=== PATIENT | female | born 1960 | race Caucasian/White ===

== ENCOUNTER 2017-07-28 08:04 | Inpatient (IN) | payer OTHER ==
[~2017-07-28] VITALS: Ht 175.3 cm; Wt 102.1 kg
[~2017-07-28 08:04] MED LIST: ASPIRIN81 M4 PO; ATORVASTATIN CA40 M1 PO; FERROUS SULFAT325 M3 PO; IBUPROFEN400 M1 PO; LEVEMIR100 UNIT/1 SC; LOMOTIL 2.5-0.1 EACH PO; METFORMIN HCL1000 M1 PO; NOVOLOG FL100 UNIT/1 SC; PREDNISONE20 M1 PO; TOUJEO SOL300 UNIT/1 SC; TRESIBA FL200 UNIT/1 SC; TRIAMCINOLONE A15 G1 TOP; TYLENOL EXTRA500 M2 PO; TYLENOL325 M1 PO; VANCO 1.51.5 GM/250 IV; ZOFRAN ODT4 M1 SL
--- NOTE | 2017-07-28 08:18 | ED GENERAL ADULT ---
See Addendum History of Present Illness General Chief Complaint: Abdominal Pain/Flank Pain Stated Complaint: BIBA FOR ABD PAIN Source: patient, old records, EMS Exam Limitations: no limitations Vital Signs & Intake/Output Vital Signs & Intake/Output Vital Signs Date Time Temp Pulse Resp B/P B/P Pulse O2 O2 Flow FiO2 Mean Ox Delivery Rate 07/28 1350 96 22 68/00 100 Nasal 2.0L Cannula 07/28 1225 77 18 62/00 97 Room Air 07/28 1207 97.8 87 20 66/40 96 Room Air 07/28 0823 96 Room Air 07/28 0821 97.3 113 17 166/67 96 Room Air Allergies Coded Allergies: vancomycin (Severe, RASH 05/01/17) Reconcile Medications Atorvastatin Calcium 40 MG TABLET 1 TAB PO DAILY HIGH CHOLESTROL (Reported) Insulin Aspart, Recombinant (Novolog Flexpen) 100 UNIT/ML INSULN.PEN 0 SC SEE ADMIN CRITERIA DIABETES Take total maximum 70 units in a day based on your sugars BEFORE MEALS Blood Insulin Sugar Units <80 0 81-150 8 101-200 10 201-250 12 251-300 14 301-350 16 351-400 18 >400 18 Call Doctor AT BEDTIME Blood Insulin Sugar Units <80 0 81-100 0 101-200 0 201-250 0 251-300 2 301-350 3 351-400 4 >400 4 Call Doctor Insulin Glargine,Hum.rec.anlog (Toujeo Solostar) 300 UNIT/ML (1.5 ML) INSULN.PEN 8 U SC QAM diabetes . Omeprazole Magnesium (Prilosec Otc) 20 MG TABLET.DR 1 TAB PO DAILY GERD ( Reported) Prednisone 20 MG TABLET 60 MG PO DAILY kidney Triage Note: 57 Y/O FEMALE BIBA FROM FOR RT SIDED ABD PAIN ONSET LAST NIGHT WITH SOME NAUSEA BUT NO VOMITING. PT STS SHE ALSO HAS RT FOOT PAIN S/P SURGERY AND INJURY TO THE FOOT. FOOT NOTED TO BE SWOLLEN AND REDDENED. PT STS SHE IS ALSO VERY DIZZY. PT ARRIVES A/O X3 VERY GOOD HISTORIAN AND NOTED TO BE VERY LETHARGIC. PT ALSO NOTED TO BE HYPOTENSIVE BY PARAMED. CHICO MAGANA AT BEDSIDE TO MARTA PT Triage Nurses Notes Reviewed? yes Onset: Abrupt Duration: day(s): (2), constant Timing: recent history Injury Environment: home Severity: severe No Modifying Factors: none HPI: 57-year-old female with a history of osteomyelitis and right foot and diabetes and comes into the emergency room with complaints of right foot swelling and pain. Patient reports that she started with symptoms yesterday. She's had associated chills and body aches. She's felt dizzy and had difficulty walking on the right leg. She started with some right-sided abdominal pain today. Denies any fever vomiting or diarrhea. Denies any chest pain or shortness of breath. Denies any cough. EMS reports that she was hypotensive in the field and tachycardic. Her blood pressure was 80 systolic. She had an IV placed and a liter IV bolus prehospital. She saw Dr. Guillen in the past. (Lars [place]) Past History Travel History Traveled to [place] past 21 day No Medical History Any Pertinent Medical History? 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 . Hx Contributory? No (Lars Washington) Review of Systems Review of Systems Constitutional: Reports: see HPI. EENTM: Reports: see HPI. Respiratory: Reports: no symptoms. Cardiovascular: Reports: no symptoms. GI: Reports: see HPI. Genitourinary: Reports: no symptoms. Musculoskeletal: Reports: no symptoms. Skin: Reports: no symptoms. Neurological/Psychological: Reports: see HPI. Hematologic/Endocrine: Reports: no symptoms. Immunologic/Allergic: Reports: no symptoms. All Other Systems: Reviewed and Negative (Lars Washington) Physical Exam Physical Exam General Appearance: well developed/nourished, no apparent distress, alert Head: atraumatic, normal appearance Eyes: Bilateral: normal appearance. Ears, Nose, Throat: normal ENT inspection, hearing grossly normal Neck: normal inspection Respiratory: no respiratory distress Cardiovascular: regular rate/rhythm Gastrointestinal: soft, tenderness (rlq) Back: normal inspection Extremities: normal inspection, no edema Neurologic/Psych: awake, alert, oriented x 3 Skin: intact, normal color Core Measures ACS in differential dx? No CVA/TIA Diagnosis: No Sepsis Present: Yes Sepsis Focused Exam Completed? No (Lars [place]) Progress Differential Diagnoses I considered the following diagnoses in my evaluation of the patient: Osteomyelitis, sepsis, septic shock, appendicitis, cellulitis, DVT, Plan of Care: Orders Procedure Date/time Status Heart Healthy Diet 07/28 L Complete Nothing by Mouth 07/28 D Active XRY-PORTABLE CHEST XRAY 07/28 1347 Active EXTREMETIES CULTURE 07/28 1255 Active Pathway - chart 07/28 1158 Active House Staff 07/28 1158 Active Code Status 07/28 1158 Active LACTIC ACID 07/28 1117 Complete Patient Data 07/28 1047 Active Admit to inpatient 07/28 1036 Active Vital Signs 07/28 1036 Active Code Status 07/28 1036 Complete Intake & Output 07/28 0820 Active BLOOD CULTURE 07/28 0817 Active URINALYSIS 07/28 0817 Active TROPONIN LEVEL 07/28 0817 Complete LIPASE 07/28 0817 Complete LACTIC ACID 07/28 0817 Complete COMPREHENSIVE METABOLIC PANEL 07/28 0817 Complete CBC WITHOUT DIFFERENTIAL 07/28 0817 Complete EKG 07/28 0817 Active VTE Mechanical Prophylaxis 07/28 UNK Active Current Medications Sig/Chuck Start time Last Medication Dose Stop Time Status Admin Heparin Sodium 5,000 UNIT Q8 07/28 1400 AC (Porcine) Hydrocortisone 100 MG Q8 07/28 1400 AC 07/28 Sodium Succinate 1241 (Solucortef) Norepinephrine 4 MG Q24H 07/28 1400 AC (Levophed Drip) Sodium Chloride 250 ML (Normal Saline 0.9%) Ceftazidime 1,000 MG Q12 07/28 1256 UNVr 07/28 (Fortaz) 1319 Laboratory Tests 07/28/17 1135: Lactic Acid 2.2 H 07/28/17 0818: Anion Gap 12, Estimated GFR 20 L, BUN/Creatinine Ratio 26.4 H, Glucose 88, Lactic Acid 2.3 H, Calcium 9.4, Total Bilirubin 0.7, AST 15, ALT 26, Alkaline Phosphatase 60, Troponin I 0.05, Total Protein 5.3 L, Albumin 2.8 L, Globulin 2.5, Albumin/Globulin Ratio 1.1, Lipase 237, CBC w Diff MAN DIFF ORDERED, RBC 3.27 L, MCV 79.7 L, MCH 26.8 L, MCHC 33.6, RDW 16.1 H, MPV 6.7 L, Gran % 90.9 H, Lymphocytes % 7.7 L, Monocytes % 0.9 L, Eosinophils % 0.3, Basophils % 0.2, Absolute Granulocytes 13.6 H, Segmented Neutrophils 72, Band Neutrophils 16 H, Absolute Lymphocytes 1.2, Lymphocytes 4 L, Monocytes 7, Absolute Monocytes 0.1, Eosinophils 1, Absolute Eosinophils 0, Absolute Basophils 0, Platelet Estimate VERIFIED BY SMEAR, Normochromic RBCs VERIFIED, Anisocytosis 1+ , Microcytic Cells 1+ Microbiology 07/28 1255 EXTREMITIE: Culture & Sensitivity - COLB 07/28 1255 EXTREMITIE: Gram Stain - COLB 07/28 1043 BLOOD: Blood Culture - RECD 07/28 1020 BLOOD: Blood Culture - RECD Diagnostic Imaging: Viewed by Me: Radiology Read, MRI. Discussed w/RAD: Radiology Read, MRI. Radiology Impression: PATIENT: BARBY WILKS PRESENT AGE: 57 PATIENT ACCOUNT NO: [id number] : 56 LOCATION: [facility] ORDERING PHYSICIAN: Lars GOLDEN SERVICE DATE: 07/28/17 EXAM TYPE: RAD - XRY-FOOT COMPLETE, R EXAMINATION: XR FOOT, RIGHT CLINICAL INFORMATION: Right foot swelling. Evaluate for osteomyelitis. COMPARISON: 04/10/2017 and 04/24/2017 TECHNIQUE: Right foot, 3 views FINDINGS: Small osteophytes of mildly degenerated ankle joint. Subtalar joint space is well-preserved. There are enthesophytes of the calcaneus and base of fifth metatarsal. Soft tissue swelling, malalignment, erosive changes, sclerosis and ossific debris around the midfoot/tarsometatarsal joints. The medial subluxation of the navicular at the talonavicular joint is unchanged compared to 04/24/2017. Similar appearance of erosions and subarticular sclerosis at the navicular-cuneiform joints, and there is similar fragmentation of middle and lateral cuneiforms. Again noted is mild medial subluxation of the first metatarsal, joint space narrowing, sclerosis and erosions of the first tarsometatarsal joint. There is worsening lateral displacement of the second metatarsal with respect to the deformed, eroded middle cuneiform. The degree of fragmentation of the lateral cuneiform remains similar compared to 04/24/2017. Interval worsening of erosions and subarticular sclerosis at the fourth and fifth tarsometatarsal joints. Chronic, mild periostitis along proximal shafts of 2nd 5th metatarsals. The erosion of the lateral 5th metatarsal head is unchanged. No new findings at MTP joints or IP joints compared to 04/24/2017. IMPRESSION: Findings suggestive of chronic osteomyelitis of the navicular-cuneiform joints and tarsometatarsal joints. There is malalignment, erosive change and fragmentation of the tarsometatarsal joints with worsening lateral displacement of the second metatarsal with respect to the eroded, severely deformed middle cuneiform. The erosive changes at fourth and fifth tarsometatarsal joints have worsened compared to 04/24/2017. There is likely a component of neuropathic arthropathy in addition to infectious/ inflammatory arthritis. The erosion of the fifth metatarsal head, presumably caused by infection, is unchanged. DICTATED BY: Danny Sarmiento MD DATE/TIME DICTATED:07/28/17847 PAPER MACHINE OPERATOR:TESSIE DATE/TIME TRANSCRIBED:847 CONFIDENTIAL, DO NOT COPY WITHOUT APPROPRIATE AUTHORIZATION. < Electronically signed in Other Vendor System> SIGNED BY: Danny Sarmiento MD 07/28/17 0907 Initial ED EKG: normal sinus rhythm, rate (107), nonspecific ST T wave chg (Lars [place]) Departure Departure Disposition: STILL A PATIENT Condition: Stable Clinical Impression Primary Impression: Osteomyelitis of foot Secondary Impressions: Cellulitis, Lactic acidosis Referrals: Oswald Mcleod MD (PCP/Family) Departure Forms: Customer Survey General Discharge Information Admission Note Spoke With: Betsy Arriaga MD Documentation of Exam: Documentation of any treatments & extenuating circumstances including Concerns Regarding Discharge (functional status, medication knowledge or non-compliance, living conditions, etc.) that warrant an admission rather than observation: Patient will require IV fluids. IV antibiotics. Podiatry consultation. Surgery. MRI of foot. Infectious disease consultation. Spoke with hospitalist. At this point time patient will be started on clindamycin. High risk. Patient will require multiple days here in the hospital. (Lars [place]) PA/ROLLER STAINER Co-Sign Statement Statement: ED Attending supervision documentation- [X] I saw and evaluated the patient. I have also reviewed all the pertinent lab results and diagnostic results. I agree with the findings and the plan of care as documented in the PA's/ROLLER STAINER's documentation. [] I have reviewed the ED Record and agree with the PA's/ROLLER STAINER's documentation. [] Additions or exceptions (if any) to the PAs/ROLLER STAINER's note and plan are summarized below: [] I've seen and personally examined the patient and I agree with the PAs evaluation. The right foot is severely swollen and tender. 07/28/17 2 PM The patient's blood pressure dropped. She is receive 6 L of IV fluid. I reevaluated the patient. She is pale and cool. Left femoral line is being placed. Levothroid is being started. I spoke with Dr. Chatman who will evaluate the patient. She is being admitted to the ICU. She is received IV antibiotics and blood cultures have been sent. (Jose Luis Blake DO) Critical Care Note Critical Care Note Critical Care Time: 30-74 min (35) (Lars Washington) ED Attending Observation Initial Observation Note: I have seen and personally examined BARBY WILKS on 07/28/17 at 1204. I agree with the current emergency department documentation. The disposition (admission or discharge) is uncertain at this time, she needs a period of observation for the following reason(s): The ED Nurse caring for this patient has been personally informed as to what the patient is being observed for. (Lars Washington)
[2017-07-28 08:26] LABS: ABSOLUTE BASOPHIL COUNT 0 /CUMM (0.0-0.2); ABSOLUTE EOSINOPHIL COUNT 0 /CUMM (0.0-0.7); ABSOLUTE GRANULOCYTE CT 13.6 /CUMM (1.4-6.5); ABSOLUTE LYMPH COUNT 1.2 /CUMM (1.2-3.4); ABSOLUTE MONOCYTE COUNT 0.1 /CUMM (0.10-0.60); BASOPHIL % 0.2 % (0.0-2.0); EOSINOPHIL % 0.3 % (0-5); GRANULOCYTE % 90.9 % (42.2-75.2); HEMATOCRIT 26.1 % (37-47); MEAN CORPUSCULAR HGB 26.8 PG (27.0-31.0); MEAN CORPUSCULAR HGB CONC 33.6 G/DL (33.0-37.0); MEAN CORPUSCULAR VOLUME 79.7 FL (81.0-99.0); MEAN PLATELET VOLUME 6.7 FL (7.4-10.4); PLATELET COUNT 276 /CUMM (130-400); RBC DISTRIBUTION WIDTH 16.1 % (11.5-14.5); RED BLOOD CELL CT 3.27 /CUMM (4.20-5.40); WHITE BLOOD CELL COUNT 14.9 /CUMM (4.8-10.8)
--- NOTE | 2017-07-28 09:07 | RADIOLOGY REPORT ---
EXAMINATION: XR FOOT, RIGHT CLINICAL INFORMATION: Right foot swelling. Evaluate for osteomyelitis. COMPARISON: 04/10/2017 and 04/24/2017 TECHNIQUE: Right foot, 3 views FINDINGS: Small osteophytes of mildly degenerated ankle joint. Subtalar joint space is well-preserved. There are enthesophytes of the calcaneus and base of fifth metatarsal. Soft tissue swelling, malalignment, erosive changes, sclerosis and ossific debris around the midfoot/tarsometatarsal joints. The medial subluxation of the navicular at the talonavicular joint is unchanged compared to 04/24/2017. Similar appearance of erosions and subarticular sclerosis at the navicular-cuneiform joints, and there is similar fragmentation of middle and lateral cuneiforms. Again noted is mild medial subluxation of the first metatarsal, joint space narrowing, sclerosis and erosions of the first tarsometatarsal joint. There is worsening lateral displacement of the second metatarsal with respect to the deformed, eroded middle cuneiform. The degree of fragmentation of the lateral cuneiform remains similar compared to 04/24/2017. Interval worsening of erosions and subarticular sclerosis at the fourth and fifth tarsometatarsal joints. Chronic, mild periostitis along proximal shafts of 2nd 5th metatarsals. The erosion of the lateral 5th metatarsal head is unchanged. No new findings at MTP joints or IP joints compared to 04/24/2017. IMPRESSION: Findings suggestive of chronic osteomyelitis of the navicular-cuneiform joints and tarsometatarsal joints. There is malalignment, erosive change and fragmentation of the tarsometatarsal joints with worsening lateral displacement of the second metatarsal with respect to the eroded, severely deformed middle cuneiform. The erosive changes at fourth and fifth tarsometatarsal joints have worsened compared to 04/24/2017. There is likely a component of neuropathic arthropathy in addition to infectious/inflammatory arthritis. The erosion of the fifth metatarsal head, presumably caused by infection, is unchanged.
[2017-07-28] MEDS ORDERED: PRILOSEC OTC20 M1 PO (09:52)
--- NOTE | 2017-07-28 10:28 | ULTRASOUND REPORT ---
EXAMINATION: US TRIPLEX LOWER EXTREMITY, RIGHT CLINICAL INFORMATION: Right foot swelling and erythema COMPARISON: None TECHNIQUE: Color-flow triplex imaging with spectral analysis and compression Doppler were performed on the lower extremity. FINDINGS: Respiratory variation, normal compression and augmented flow are noted throughout the lower extremity. The visualized common femoral vein, superficial femoral vein, profunda femoral vein, popliteal vein and midcalf peroneal and posterior tibial venous segments show no evidence of deep venous thrombosis. There is no Wolf's cyst. IMPRESSION: Normal triplex scan without evidence of deep venous thrombosis involving the lower extremity.
--- NOTE | 2017-07-28 11:56 | History & Physical ---
Pamela RASMUSSEN,[facility] 07/28/17 1155: General Information and HPI MD Statement: I have seen and personally examined BARBY WILKS and documented this H&P. The patient is a 57 year old F who presented with a patient stated chief complaint of []. 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 The patient reported subjective fever and chills. While in the ED her blood pressure dropped from 160s/60s down to 60s/40s, for which central line was placed, stress dose of hydrocortisone was given(on prednisone for the past 3 months), total of 6 IV normal saline boluses was given , and vasopressor was started. The patient was given IV clindamycin and ceftazidime and her right foot abscess was drained at bedside, which revealed purulent bloody fluid The patient was sleepy and lethargic, complaining of pain, for that reason he was difficult to obtain accurate history. Allergies/Medications Home Med list Atorvastatin Calcium 40 MG TABLET 1 TAB PO DAILY HIGH CHOLESTROL (Reported) Insulin Aspart, Recombinant (Novolog Flexpen) 100 UNIT/ML INSULN.PEN 0 SC SEE ADMIN CRITERIA DIABETES Take total maximum 70 units in a day based on your sugars BEFORE MEALS Blood Insulin Sugar Units <80 0 81-150 8 101-200 10 201-250 12 251-300 14 301-350 16 351-400 18 >400 18 Call Doctor AT BEDTIME Blood Insulin Sugar Units <80 0 81-100 0 101-200 0 201-250 0 251-300 2 301-350 3 351-400 4 >400 4 Call Doctor Insulin Glargine,Hum.rec.anlog (Toujeo Solostar) 300 UNIT/ML (1.5 ML) INSULN.PEN 8 U SC QAM diabetes . 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 . Psychosocial History Who Do You Live With? spouse Services at Home: Nursing Primary Language: Danish ETOH Use: denies use Illicit Drug Use: denies illicit drug use Living Will? no Power of [employer] Director/HCP? no Name of POA/HCP: Functional Ability ADLs Independent: dressing, eating, toileting, bathing. Ambulation: independent IADLs Independent: shopping, housework, finances, food prep, telephone, transportation , medication admin. Review of Systems Review of Systems Constitutional: Reports: see HPI. Exam & Diagnostic Data Last 24 Hrs of Vital Signs/I&O Vital Signs Date Time Temp Pulse Resp B/P B/P Pulse O2 O2 Flow FiO2 Mean Ox Delivery Rate 07/29 0000 99 Nasal 4.0L Cannula 07/29 0000 98.2 102 18 92/60 99 Nasal 4.0L Cannula 07/28 2207 100 92/57 07/28 2000 97 Nasal 4.0L Cannula 07/28 1645 90 Nasal 4.0L Cannula 07/28 1645 97.1 101 18 116/64 90 Nasal 4.0L Cannula 07/28 1607 100 17 118/66 100 Nasal 4.0L Cannula 07/28 1550 100 120/62 16 1543 101 126/62 07/28 1435 96 16 78/56 100 Nasal 2.0L Cannula 07/28 1420 94 16 90/54 100 Nasal 2.0L Cannula 07/28 1409 99 20 92/56 100 Room Air 07/28 1405 98 20 67/00 100 Nasal 2.0L Cannula 07/28 1400 95 68/00 16 1350 96 22 68/00 100 Nasal 2.0L Cannula 07/28 1315 98.0 86 22 68/00 99 Nasal 2.0L Cannula 07/28 1225 77 18 62/00 97 Room Air 07/28 1207 97.8 87 20 66/40 96 Room Air 07/28 0823 96 Room Air 07/28 0821 97.3 113 17 166/67 96 Room Air Intake & Output 07/29 0800 07/29 0000 07/28 1600 Intake Total 2532 4500 Output Total 500 Balance 2031 4500 Intake, IV 253 4500 Intake, Oral 0 Number 0 Bowel Movements Output, Urine 500 Patient 102.058 kg Weight Physical Exam General Appearance Alert, Oriented X3, Moderate Distress HEENT Atraumatic, PERRLA, EOMI, Mucous Membr. moist/pink Neck No JVD Cardiovascular Regular Rate, Normal S1, Normal S2, No Murmurs Lungs Clear to Auscultation, Normal Air Movement Abdomen Soft, RUQ and EPI tenderness Neurological Normal Speech, sleepy and lethargic Extremities right foot swellingm erythema, and warm wtih tenderness Last 24 Hrs of Labs/Dario: Laboratory Tests 07/28/17 2100: Lactic Acid Cancelled 07/28/17 1755: Lactic Acid 2.0, PT 13.7 H, INR 1.25 H, APTT 25, CBC w Diff NO MAN DIFF REQ, RBC 3.21 L, MCV 80.9 L, MCH 27.6, MCHC 34.1, RDW 16.9 H, MPV 7.1 L, Gran % 94.1 H, Lymphocytes % 2.7 L, Monocytes % 3.0, Eosinophils % 0.2, Basophils % 0 , Absolute Granulocytes 20.2 H, Absolute Lymphocytes 0.6 L, Absolute Monocytes 0.6, Absolute Eosinophils 0, Absolute Basophils 0 07/28/17 1633: Urine Color YEL, Urine Clarity CLEAR, Urine pH 5.0, Ur Specific Juliette 1.025, Urine Protein 100 H, Urine Ketones NEG, Urine Nitrite NEG, Urine Bilirubin NEG, Urine Urobilinogen 0.2, Ur Leukocyte Esterase NEG, Ur Microscopic SEDIMENT EXAMINED, Urine RBC RARE, Urine WBC 1-3 H, Urine Bacteria MOD H, Hyaline Casts RARE H, Urine Hemoglobin NEG, Urine Glucose NEG 07/28/17 1523: Lactic Acid Cancelled 07/28/17 1135: Lactic Acid 2.2 H 07/28/17 0818: Anion Gap 12, Estimated GFR 20 L, BUN/Creatinine Ratio 26.4 H, Glucose 88, Lactic Acid 2.3 H, Calcium 9.4, Phosphorus 3.7, Magnesium 1.1 L, Total Bilirubin 0.7, AST 15, ALT 26, Alkaline Phosphatase 60, Troponin I 0.05, Total Protein 5.3 L, Albumin 2.8 L, Globulin 2.5, Albumin/Globulin Ratio 1.1, Lipase 237, Cortisol AM Sample 15.7, CBC w Diff MAN DIFF ORDERED, RBC 3.27 L, MCV 79.7 L, MCH 26.8 L, MCHC 33.6, RDW 16.1 H, MPV 6.7 L, Gran % 90.9 H, Lymphocytes % 7.7 L, Monocytes % 0.9 L, Eosinophils % 0.3, Basophils % 0.2, Absolute Granulocytes 13.6 H, Segmented Neutrophils 72, Band Neutrophils 16 H, Absolute Lymphocytes 1.2, Lymphocytes 4 L, Monocytes 7, Absolute Monocytes 0.1, Eosinophils 1, Absolute Eosinophils 0, Absolute Basophils 0, Platelet Estimate VERIFIED BY SMEAR, Normochromic RBCs VERIFIED, Anisocytosis 1+, Microcytic Cells 1+ Microbiology 07/28 1745 GI: Surveillance Culture - RECD 07/28 1740 UPPER RESP: Surveillance Culture - RECD 07/28 1633 URINE ROUT: Urine Culture - RECD 07/28 1240 EXTREMITIE: Culture & Sensitivity - RECD 07/28 1240 EXTREMITIE: Gram Stain - RECD 07/28 1043 BLOOD: Blood Culture - RECD 07/28 1020 BLOOD: Blood Culture - RECD Assessment/Plan Assessment: 57-year-old female with history of uncontrolled diabetes mellitus, hyperlipidemia, sent right with MRSA and group B strep osteomyelitis that was treated with IV vancomycin that lead to interstitial nephritis. For the past 3 months the patient has been getting 60 mg prednisone for interstitial nephritis. She presented with right upper quadrant abdominal pain and right foot cellulitis with a questionable osteomyelitis. While in the ED she became septic. Her right foot abscess was drained and the culture was sent. CT abdomen did not reveal any abnormality. The patient received a total of 6 IV normal saline boluses, stress dose of hydrocortisone, and was started on IV Levophed. Her presentation can be secondary to right foot cellulitis/ osteomyelitis, also it's possible that she has active intra-abdominal infection. Plan * We will transferred to ICU * Panculture * Continue clindamycin and ceftazidime * Continue IV hydrocortisone 100 mg every 8 * IV insulin, fingerstick * We will consult podiatry, wound, IV, endocrinology * We will consider right upper quadrant ultrasound * Diabetic diet when tolerated * Full code * DVT prophylaxis pharmacological. As Ranked By This Provider Problem List: 1. Cellulitis Core Measures/Misc (01/29) Acute Coronary Syndrome ACS Diagnosis: No Congestive Heart Failure Congestive Heart Failure Diagnosis No Cerebrovascular Accident CVA/TIA Diagnosis: No VTE (View Protocol) VTE Risk Factors Age>40 No Mechanical VTE Prophylaxis d/t Medical Contraindication No VTE Pharm Prophylaxis d/t NA PharmProphylax ordered Sepsis (View protocol) Sepsis Present: Yes Robyn Lopez MD 07/28/17 1434: General Information and HPI Allergies/Medications Allergies: Coded Allergies: vancomycin (Severe, RASH/INTERSTITIAL NEPHRITIS 07/29/17) Attending MD Review Statement Attending Statement Attending MD Statement: examined this patient, discuss w/resident/PA/COMPUTER HARDWARE DEVELOPER, agreed w/resident/PA/COMPUTER HARDWARE DEVELOPER, discussed with family, reviewed EMR data (avail), discussed with nursing, discussed with case mgmt, reviewed images, amended to note Attending Assessment/Plan: 57 y/o F with pmh sig for hyperlipidemia, diabetes mellitus, right foot MRSA/ group B strept, developing acute renal failure/acute interstitial nephritis with vancomycin currently on high-dose prednisone presented to the emergency room with right foot pain as well as right upper quadrant pain. Patient claims that she has off-and-on right foot pain for months. Right upper quadrant pain started last night. She was nauseous and was dry heaving. Her foot has been swollen but swelling has increased recently. It is very tender to touch. It is also purplish bluish looking. There is some scabbing going on on her sole. Franklin reports fevers at home but afebrile in the emergency room. She has a significant leukocytosis. She did receive some morphine in the ER and she had a drop in her blood pressure. Her pressure dropped to 60s. She did receive stress dose IV steroids as well as IV fluid boluses. Off note patient has been having uncontrolled blood sugars at home with hyperglycemia secondary to prednisone. She is insulin-dependent. In the emergency room, she did receive clindamycin. After she dropped her blood pressure ceftaz was also given. Later on after it was discussed with podiatry, patient received incision and drainage of the right foot. Pustular material came out which has been sent for culture and sensitivities. Vital Signs Date Time Temp Pulse Resp B/P B/P Pulse O2 O2 Flow FiO2 Mean Ox Delivery Rate 07/28 1409 99 20 92/56 100 Room Air 07/28 1405 98 20 67/00 100 Nasal 2.0L Cannula 07/28 1400 95 68/00 07/28 1350 96 22 68/00 100 Nasal 2.0L Cannula 07/28 1315 98.0 86 22 68/00 99 Nasal 2.0L Cannula 07/28 1225 77 18 62/00 97 Room Air 07/28 1207 97.8 87 20 66/40 96 Room Air 07/28 0823 96 Room Air 07/28 0821 97.3 113 17 166/67 96 Room Air on exam; aox3, mod distress 2/2 to foot and ruq pain. cv; s1,s2, rrr resp; clear abd; soft, tenfder in ruq, bs+ ext; no edema right foot is all swollen, bluish purplish-looking, very tender to touch. Laboratory Tests 07/28 07/28 1135 0818 Chemistry Sodium (137 - 145 mmol/L) 134 L Potassium (3.5 - 5.1 mmol/L) 3.6 Chloride (98 - 107 mmol/L) 101 Carbon Dioxide (22 - 30 mmol/L) 21 L Anion Gap (5 - 16) 12 BUN (7 - 17 mg/dL) 66 H Creatinine (0.5 - 1.0 mg/dL) 2.5 H Estimated GFR (>60 ml/min) 20 L BUN/Creatinine Ratio (7 - 25 %) 26.4 H Glucose (65 - 99 mg/dL) 88 Lactic Acid (0.7 - 2.1 mmol/L) 2.2 H 2.3 H Calcium (8.4 - 10.2 mg/dL) 9.4 Total Bilirubin (0.2 - 1.3 mg/dL) 0.7 AST (14 - 36 U/L) 15 ALT (9 - 52 U/L) 26 Alkaline Phosphatase (<127 U/L) 60 Troponin I (< 0.11 ng/ml) 0.05 Total Protein (6.3 - 8.2 g/dL) 5.3 L Albumin (3.5 - 5.0 g/dL) 2.8 L Globulin (1.9 - 4.2 gm/dL) 2.5 Albumin/Globulin Ratio (1.1 - 2.2 %) 1.1 Lipase (23 - 300 U/L) 237 Hematology CBC w Diff MAN DIFF ORDERED WBC (4.8 - 10.8 /CUMM) 14.9 H RBC (4.20 - 5.40 /CUMM) 3.27 L Hgb (12.0 - 16.0 G/DL) 8.8 L Hct (37 - 47 %) 26.1 L MCV (81.0 - 99.0 FL) 79.7 L MCH (27.0 - 31.0 PG) 26.8 L MCHC (33.0 - 37.0 G/DL) 33.6 RDW (11.5 - 14.5 %) 16.1 H Plt Count (130 - 400 /CUMM) 276 MPV (7.4 - 10.4 FL) 6.7 L Gran % (42.2 - 75.2 %) 90.9 H Lymphocytes % (20.5 - 51.1 %) 7.7 L Monocytes % (1.7 - 9.3 %) 0.9 L Eosinophils % (0 - 5 %) 0.3 Basophils % (0.0 - 2.0 %) 0.2 Absolute Granulocytes (1.4 - 6.5 /CUMM) 13.6 H Segmented Neutrophils (42.2 - 75.2 %) 72 Band Neutrophils (0.0 - 5.0 %) 16 H Absolute Lymphocytes (1.2 - 3.4 /CUMM) 1.2 Lymphocytes (20.5 - 51.1 %) 4 L Monocytes (1.7 - 9.3 %) 7 Absolute Monocytes (0.10 - 0.60 /CUMM) 0.1 Eosinophils (0 - 5.0 %) 1 Absolute Eosinophils (0.0 - 0.7 /CUMM) 0 Absolute Basophils (0.0 - 0.2 /CUMM) 0 Platelet Estimate (ADEQUATE) VERIFIED BY SMEAR Normochromic RBCs VERIFIED Anisocytosis 1+ Microcytic Cells 1+ All imaging reviewed. A/P: 57 y/o F with pmh sig for hyperlipidemia, diabetes mellitus, right foot MRSA/ group B strept, developing acute renal failure/acute interstitial nephritis with vancomycin currently on high-dose prednisone admitted with septic shock, hypotension, right foot infection. Abdominal/pelvic CT shows no acute findings. Patient received incision and drainage of the right foot and pustular material came out which has been sent for sensitivities and culture. Patient to receive TLC in the emergency room. I have notified Dr. Chatman. Patient will be admitted to ICU. She will require stress dose steroids, IV fluids and vasopressors. Appreciate nephrology input. Please call endocrinology consult for the management off hyperglycemia. Patient will require broad spectrum antibiotics, received clinda and Ceftaz in ER. Podiatry consult should be called. Infectious disease consult has been obtained. She will require MRI of the right foot once hemodynamically stable. DVT px; hep sq Full code.
--- NOTE | 2017-07-28 12:15 | CT SCAN REPORT ---
EXAMINATION: CT ABDOMEN AND PELVIS WITHOUT CONTRAST CLINICAL INFORMATION: Epigastric and left upper quadrant pain. COMPARISON: April 2017. TECHNIQUE: Contiguous axial thin section helical images of the abdomen and pelvis were performed without oral or IV contrast. The data set was reformatted in the coronal and sagittal planes and reviewed on an independent workstation. DLP: 1259 mGy-cm. FINDINGS: There is mild groundglass opacification within the inferior segment of the lingula. The visualized lung bases are otherwise clear. The visualized portions of the heart are unremarkable. The liver is of normal size and attenuation without focal lesions nor intrahepatic biliary ductal dilation. There is a 4 mm calcification along the wall of the gallbladder. There is no wall thickening or discernible pericholecystic fluid. The spleen, pancreas, adrenal glands are unremarkable. Both kidneys are of normal size and attenuation without hydronephrosis or nephrolithiasis. There is bilateral perinephric stranding. There is no abdominal free fluid. There is neither mesenteric nor retroperitoneal lymphadenopathy. There are scattered sigmoid diverticula without evidence of diverticulitis; otherwise, unremarkable unopacified loops of small and large bowel are identified. A normal appendix is identified. There is no pelvic free fluid. The urinary bladder is unremarkable. There is neither pelvic nor inguinal lymphadenopathy. A right inguinal lymph node has decreased in size from prior exam measuring approximately 11 mm in short axis. Bone windows: Neither sclerotic nor lytic bone lesions are identified. IMPRESSION: No evidence for acute abdominal or pelvic inflammatory or infectious processes. Bilateral perinephric stranding without hydronephrosis nor nephrolithiasis. Mild diverticulosis without evidence of diverticulitis.
--- NOTE | 2017-07-28 13:20 | Cons- Nephrology ---
General Information and HPI Consulting Request Date of Consult: 07/28/17 Requested By: Robyn Lopez MD Reason for Consult: ALBA, CKD Source of Information: patient, old records Exam Limitations: clinical condition History of Present Illness: The patient is a 57-year-old woman with a past medical history most significant for acute interstitial nephritis for which she is on steroids and her faby creatinine most recently was 2.17, diabetes, peripheral vascular disease who presents with foot and abd pain. The patient has been seen by nephrology since late 2016. She had had a creatinine of 0.5 but had multiple bouts of AK I. She ultimately underwent a kidney biopsy 05/01 which was consistent with acute interstitial nephritis, ATN, as well as diabetic nephropathy, and mild arteriolar nephrosclerosis. She was treated with steroids and her creatinine came down to about 2.5 but is been stagnant at that level. I saw her in the office was recently on 07/06 and at that time we decided to continue with steroids for another month. I was set to see her next week and she had labs done on 07/26 which showed that her creatinine finally started to come down a bit more to 2.17. She is now coming in with right foot pain, abd pain, chills. She's had some dizziness. She was noted by EMS to be hypotensive. On presentation, initial blood pressure 166/67afebrile. However, her blood pressure subsequently dropped to the 60s systolic and she has gotten a total of 3 L thus far IV fluid. She is in the reverse Trendelenburg position and is drowsy. Labs notable for a blood cell count 14.9, hemoglobin 8.8, creatinine 2.5, glucose 88 lactate 2.3, troponin 0.05. CT A/P imaging in the setting of abd pain neg for acute process although did note b/l perinephric stranding. She has been started on empiric and biotics and podiatry has been notified regarding the foot abscess that she clinically has. Should note that she did not take her steroids today. Allergies/Medications Allergies: Coded Allergies: vancomycin (Severe, RASH 05/01/17) Home Med List: Atorvastatin Calcium 40 MG TABLET 1 TAB PO DAILY HIGH CHOLESTROL (Reported) Insulin Aspart, Recombinant (Novolog Flexpen) 100 UNIT/ML INSULN.PEN 0 SC SEE ADMIN CRITERIA DIABETES Take total maximum 70 units in a day based on your sugars BEFORE MEALS Blood Insulin Sugar Units <80 0 81-150 8 101-200 10 201-250 12 251-300 14 301-350 16 351-400 18 >400 18 Call Doctor AT BEDTIME Blood Insulin Sugar Units <80 0 81-100 0 101-200 0 201-250 0 251-300 2 301-350 3 351-400 4 >400 4 Call Doctor Insulin Glargine,Hum.rec.anlog (Bricecely Noemysandra) 300 UNIT/ML (1.5 ML) INSULN.PEN 8 U SC QAM diabetes . Omeprazole Magnesium (Prilosec Otc) 20 MG TABLET.DR 1 TAB PO DAILY GERD ( Reported) Prednisone 20 MG TABLET 60 MG PO DAILY kidney Current Medications: Current Medications Sig/Chuck Start time Last Medication Dose Route Stop Time Status Admin Acetaminophen 1,000 MG ONCE ONE 07/28 0930 DC 07/28 N/A 1 UNIT IV 07/28 0944 0920 Acetaminophen 0 .STK-MED ONE 07/28 0922 DC IV Ceftazidime 1,000 MG Q12 07/28 1256 UNVr IV Clindamycin 600 MG ONCE ONE 07/28 1045 DC 07/28 Dextrose/Water 50 ML IV 07/28 1114 1125 Heparin Sodium 5,000 UNIT Q8 07/28 1400 AC (Porcine) SC Hydrocortisone 100 MG Q8 07/28 1400 AC 07/28 Sodium Succinate IV 1241 Lidocaine 0 .STK-MED ONE 07/28 1241 DC .ROUTE Morphine Sulfate 0 .STK-MED ONE 07/28 1139 DC .ROUTE Morphine Sulfate 2 MG ONCE ONE 07/28 1130 DC 07/28 IV 07/28 1131 1130 Morphine Sulfate 4 MG ONCE ONE 07/28 1130 DC IV 07/28 1131 Naloxone HCl 0.4 MG ONCE ONE 07/28 1300 UNVr IV 07/28 1301 Sodium Chloride 3,061.74 ML ONCE ONE 07/28 1045 DC 07/28 IV 07/28 1046 1051 Sodium Chloride 1,000 ML BOLUS ONE 07/28 0830 DC 07/28 IV 07/28 0929 0829 Review of Systems Review of Systems: Complete 14 point ROS neg except as per HPI Past History Travel History Traveled to [place] past 21 day No Medical History Neurological: peripheral neuropathy EENT: NONE Cardiovascular: hyperlipidemia, PVD Respiratory: NONE Gastrointestinal: NONE Hepatic: NONE Renal: NONE Musculoskeletal: NONE Psychiatric: NONE Endocrine: diabetes Blood Disorders: NONE Cancer(s): NONE 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 . Psychosocial History Who Do You Live With? spouse Services at Home: Nursing Primary Language: Belarusian ETOH Use: denies use Illicit Drug Use: denies illicit drug use Living Will? no Power of Tailor'S Aide/HCP? no Name of POA/HCP: Functional Ability ADLs Independent: dressing, eating, toileting, bathing. Ambulation: independent IADLs Independent: shopping, housework, finances, food prep, telephone, transportation , medication admin. Exam & Diagnostic Data Vital Signs and I&O Vital Signs Date Time Temp Pulse Resp B/P B/P Pulse O2 O2 Flow FiO2 Mean Ox Delivery Rate 07/28 1225 77 18 62/00 97 Room Air 07/28 1207 97.8 87 20 66/40 96 Room Air 07/28 0823 96 Room Air 07/28 0821 97.3 113 17 166/67 96 Room Air Intake & Output 07/28 1600 07/28 0400 07/27 1600 07/27 0400 07/26 1600 07/26 0400 Intake Total 4500 Output Total Balance 4500 Intake, IV 4500 Patient 225 lb Weight Physical Exam: Gen - lethargic Head - NCAT Eyes - anicteric sclera, EOMI Neck - supple, no LAD CV - RRR, no m/r/g Chest - clear, no w/r/r Abd - soft, NTND Upper ext - warm, no edema Lower ext - warm, no edema, R foot with fluctuance Skin - no rash or jaundice Neuro - lethargic but oriented Results Pertinent Lab Results: Laboratory Tests 07/28 07/28 1135 0818 Chemistry Sodium (137 - 145 mmol/L) 134 L Potassium (3.5 - 5.1 mmol/L) 3.6 Chloride (98 - 107 mmol/L) 101 Carbon Dioxide (22 - 30 mmol/L) 21 L Anion Gap (5 - 16) 12 BUN (7 - 17 mg/dL) 66 H Creatinine (0.5 - 1.0 mg/dL) 2.5 H Estimated GFR (>60 ml/min) 20 L BUN/Creatinine Ratio (7 - 25 %) 26.4 H Glucose (65 - 99 mg/dL) 88 Lactic Acid (0.7 - 2.1 mmol/L) 2.2 H 2.3 H Calcium (8.4 - 10.2 mg/dL) 9.4 Total Bilirubin (0.2 - 1.3 mg/dL) 0.7 AST (14 - 36 U/L) 15 ALT (9 - 52 U/L) 26 Alkaline Phosphatase (<127 U/L) 60 Troponin I (< 0.11 ng/ml) 0.05 Total Protein (6.3 - 8.2 g/dL) 5.3 L Albumin (3.5 - 5.0 g/dL) 2.8 L Globulin (1.9 - 4.2 gm/dL) 2.5 Albumin/Globulin Ratio (1.1 - 2.2 %) 1.1 Lipase (23 - 300 U/L) 237 Hematology CBC w Diff MAN DIFF ORDERED WBC (4.8 - 10.8 /CUMM) 14.9 H RBC (4.20 - 5.40 /CUMM) 3.27 L Hgb (12.0 - 16.0 G/DL) 8.8 L Hct (37 - 47 %) 26.1 L MCV (81.0 - 99.0 FL) 79.7 L MCH (27.0 - 31.0 PG) 26.8 L MCHC (33.0 - 37.0 G/DL) 33.6 RDW (11.5 - 14.5 %) 16.1 H Plt Count (130 - 400 /CUMM) 276 MPV (7.4 - 10.4 FL) 6.7 L Gran % (42.2 - 75.2 %) 90.9 H Lymphocytes % (20.5 - 51.1 %) 7.7 L Monocytes % (1.7 - 9.3 %) 0.9 L Eosinophils % (0 - 5 %) 0.3 Basophils % (0.0 - 2.0 %) 0.2 Absolute Granulocytes (1.4 - 6.5 /CUMM) 13.6 H Segmented Neutrophils (42.2 - 75.2 %) 72 Band Neutrophils (0.0 - 5.0 %) 16 H Absolute Lymphocytes (1.2 - 3.4 /CUMM) 1.2 Lymphocytes (20.5 - 51.1 %) 4 L Monocytes (1.7 - 9.3 %) 7 Absolute Monocytes (0.10 - 0.60 /CUMM) 0.1 Eosinophils (0 - 5.0 %) 1 Absolute Eosinophils (0.0 - 0.7 /CUMM) 0 Absolute Basophils (0.0 - 0.2 /CUMM) 0 Platelet Estimate (ADEQUATE) VERIFIED BY SMEAR Normochromic RBCs VERIFIED Anisocytosis 1+ Microcytic Cells 1+ Imaging/Other Studies: CT A/P reviewed Assessment/Plan Assessment/Recommendations Assessment: Stage IV CKD - 2/2 acute interstitial nephritis and ATN that has not completely recovered. We have been continuing her on steroids although given her current infection, I think at this point which has been 3 months, we need to start tapering her steroids. Septic Shock - Has gotten 3L of IVF but given body weight can certainly get more (lungs clear and no edema on exam) - foot appears to be the source. Lactate mildly elevated and the fact that she's drowsy and her SCr is up demonstrate end organ damage from her low blood pressure. Given that she was on high dose steroids, she should be started on high dose stress does steroids - 100mg IV hydrocortisone q8. She should eventually be tapered from this as I don't feel like we should continue her on high dose steroids for her interstitial nephrititis. ALBA - Likely 2/2 pre-renal azotemia vs ATN in the setting of shock. Recommendations: -Continued IVF resuscitation -Stress dose steroids - 100mg hydrocortisone q8 - may need Endocrine input with tapering steroids, especially with her labile sugars Please call [phone] with ?'s
--- NOTE | 2017-07-28 14:36 | Admission Certification ---
Admission Certification Certification Statement - As attending physician, I certify that at the time of - admission, based on clinical presentation, severity of - symptoms, need for further diagnostic testing and - therapeutic interventions, and risk of adverse outcomes - without in-hospital treatment, in my clinical assessment, - this patient requires an acute hospital stay for a minimum - of two nights or longer. I have also considered psychsocial - factors such as support system, advanced age, financial - issues, cognitive issues, and failed out-patient treatments, - past re-admission history, safety of patient, and lack of - compliance as applicable. Specific rationale supporting this admission is: septic shock likely secondary to soft tissue infection, requires ICU for vasopressors, hemodynamic monitoring
--- NOTE | 2017-07-28 14:37 | Cons- CRCU ---
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 According to the patient's partner who lives with her, she was in her usual state of health without any complaints, walking around and driving in her car, until last night 3 AM, when she started complaining of right upper quadrant abdominal pain associated with some nausea but no vomiting. He noted that she had chills but no fever was recorded nor sweating. She also complained of pain on her right foot where she chronically has a wound, and for which she had been previously admitted for osteomyelitis as well. She had noted pus coming out of the wound and the swelling much worse than earlier. Of note, last night she went to the bathroom, felt dizzy, and laid down after that, and after resting for 2.5 hours, she still felt worse and this made her come to the emergency department for further evaluation. In the ED: Patient received 3 L of normal saline for fluid resuscitation, IV antibiotics Ceftazidime, clindamycin, and Levophed was been started for pressor support in the ED. Patient initially presented with blood pressure of 166/67, but her blood pressure dropped to 62 over Doppler at 12:25 PM, thus requiring more IV fluid nurses station and central line placement. Allergies/Medications Allergies: Coded Allergies: vancomycin (Severe, RASH 05/01/17) Home Med List: Atorvastatin Calcium 40 MG TABLET 1 TAB PO DAILY HIGH CHOLESTROL (Reported) Insulin Aspart, Recombinant (Novolog Flexpen) 100 UNIT/ML INSULN.PEN 0 SC SEE ADMIN CRITERIA DIABETES Take total maximum 70 units in a day based on your sugars BEFORE MEALS Blood Insulin Sugar Units <80 0 81-150 8 101-200 10 201-250 12 251-300 14 301-350 16 351-400 18 >400 18 Call Doctor AT BEDTIME Blood Insulin Sugar Units <80 0 81-100 0 101-200 0 201-250 0 251-300 2 301-350 3 351-400 4 >400 4 Call Doctor Insulin Glargine,Hum.rec.anlog (Ruba Elmore) 300 UNIT/ML (1.5 ML) INSULN.PEN 8 U SC QAM diabetes . Omeprazole Magnesium (Prilosec Otc) 20 MG TABLET.DR 1 TAB PO DAILY GERD ( Reported) Prednisone 20 MG TABLET 60 MG PO DAILY kidney Review of Systems Review of Systems Constitutional: Reports: no symptoms. EENTM: Reports: no symptoms. Cardiovascular: Reports: no symptoms. Respiratory: Reports: no symptoms. GI: Reports: see HPI, abdominal pain. Genitourinary: Reports: no symptoms. Musculoskeletal: Reports: no symptoms. Skin: Reports: see HPI. Neurological/Psychological: Reports: no symptoms. Hematologic/Endocrine: Reports: no symptoms. 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 . Psychosocial History Where Do You Live? Home Who Do You Live With? spouse Services at Home: Nursing Primary Language: Mosotho ETOH Use: denies use Illicit Drug Use: denies illicit drug use Living Will? no Power of High Pressure Operator/HCP? no Name of POA/HCP: Functional Ability ADLs Independent: dressing, eating, toileting, bathing. Ambulation: independent IADLs Independent: shopping, housework, finances, food prep, telephone, transportation , medication admin. Exam & Diagnostic Data Last 24 Hrs of Vital Signs/I&O Vital Signs Date Time Temp Pulse Resp B/P B/P Pulse O2 O2 Flow FiO2 Mean Ox Delivery Rate 07/28 1409 99 20 92/56 100 Room Air 07/28 1405 98 20 67/00 100 Nasal 2.0L Cannula 07/28 1400 95 68/00 07/28 1350 96 22 6800 100 Nasal 2.0L Cannula 07/28 1315 98.0 86 22 68/00 99 Nasal 2.0L Cannula 07/28 1225 77 18 62/00 97 Room Air 07/28 1207 97.8 87 20 66/40 96 Room Air 07/28 0823 96 Room Air 07/28 0821 97.3 113 17 166/67 96 Room Air Intake & Output 07/28 1600 07/28 0800 07/28 0000 Intake Total 4500 Output Total Balance 4500 Intake, IV 4500 Patient 102.058 kg Weight Physical Exam General Appearance: alert, awake, comfortable, morbidly obese Head: atraumatic, normal appearance Eyes: Bilateral: normal appearance, PERRL, EOMI. Ears, Nose, Throat: normal pharynx, normal ENT inspection, hearing grossly normal Neck: normal inspection, supple, full range of motion Respiratory: normal breath sounds, chest non-tender, no respiratory distress Cardiovascular: regular rate/rhythm, edema, normal peripheral pulses Peripheral Pulses: 4+ carotid (R), 4+ carotid (L), 4+ radial (R), 4+ radial (L) Gastrointestinal: normal bowel sounds, soft, non-tender, no organomegaly, deep palpation difficult given body habitus Back: normal inspection, normal range of motion Extremities: normal inspection, normal capillary refill, normal range of motion Neurologic/Psych: grossly intact Cranial Nerves: normal hearing, normal speech, PERRL Skin: Right sole open wound, ED had made a sharp transverse incision and packed, abt 2 cm length Lymphatic: no anterior cervical miladis Last 48 Hrs of Labs/Dario: Laboratory Tests 07/28/17 1135: Lactic Acid 2.2 H 07/28/17 0818: Anion Gap 12, Estimated GFR 20 L, BUN/Creatinine Ratio 26.4 H, Glucose 88, Lactic Acid 2.3 H, Calcium 9.4, Total Bilirubin 0.7, AST 15, ALT 26, Alkaline Phosphatase 60, Troponin I 0.05, Total Protein 5.3 L, Albumin 2.8 L, Globulin 2.5, Albumin/Globulin Ratio 1.1, Lipase 237, CBC w Diff MAN DIFF ORDERED, RBC 3.27 L, MCV 79.7 L, MCH 26.8 L, MCHC 33.6, RDW 16.1 H, MPV 6.7 L, Gran % 90.9 H, Lymphocytes % 7.7 L, Monocytes % 0.9 L, Eosinophils % 0.3, Basophils % 0.2, Absolute Granulocytes 13.6 H, Segmented Neutrophils 72, Band Neutrophils 16 H, Absolute Lymphocytes 1.2, Lymphocytes 4 L, Monocytes 7, Absolute Monocytes 0.1, Eosinophils 1, Absolute Eosinophils 0, Absolute Basophils 0, Platelet Estimate VERIFIED BY SMEAR, Normochromic RBCs VERIFIED, Anisocytosis 1+ , Microcytic Cells 1+ Diagnostic Data CXR Results results pending Other Results X-ray of R foot, consistent with chronic osteomyelitis with suggestion of acute infectious/inflammatory process. Doppler of right lower extremity is negative for DVT. CT abd/pelvis does not show any acute abdominal or pelvic inflammatory/ infectious process. Bilateral perinephric stranding has been noted without hydronephrosis or nephrolithiasis was stopped mild diverticulosis without evidence of diverticulitis noted. 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 PE: Significant for hypotension, right foot injury which was incised in the ED, and well dressed. Rest of the exam was not significant.Her lab values are significant for leukocytosis 14.9 with bandemia 16, anemia H&H 8.8/26.1, platelet 276, sodium/potassium 134/3.6, urine/creatinine 66/2.5, glucose 88, initial lactic as 2.3 later 2.2, normal LFTs, albumin 2.8. UA is pending. EKG: not done in the ED. X-ray of R foot, consistent with chronic osteomyelitis with suggestion of acute infectious/inflammatory process. Doppler of right lower extremity is negative for DVT. CT abd/pelvis does not show any acute abdominal or pelvic inflammatory/ infectious process. Bilateral perinephric stranding has been noted without hydronephrosis or nephrolithiasis was stopped mild diverticulosis without evidence of diverticulitis noted. Patient received 3 L of normal saline for fluid resuscitation, IV antibiotics Ceftazidime, clindamycin, and Vaughn has been started for pressor support in the ED. Patient initially presented with blood pressure of 166/67, but her blood pressure dropped to 62 over Doppler at 12:25 PM, thus requiring more IV fluid nurses station and central line placement. She was initially thought to be admitted to [facility] but later given her current conditions has been decided to patient and his in the ICU, for the management of following issues: # Septic shock Patient initially came in with normal blood pressure, received morphine in the ED, which dropped her blood pressure, which was not amenable by IV fluids alone and was thus started on pressors. For now we will continue Levophed infusion. We will watch patient's vitals status very closely in the ICU, and given the cause of his shock, will continue antibiotics per ID consultation, and possible debridement per podiatry consultation. Both the consultations recommendations are pending as of now. # Right foot wound, to rule out acute osteomyelitis Patient's clinical feature and left findings are consistent with infective process of right foot wound, and the x-ray of the right foot is clearly suggesting chronic osteomyelitis and possible acute infectious/inflammatory process. - Podiatry consulted, awaiting recommendations. # Acute on chronic kidney disease, multifactorial Patient's creatinine today is 2.5, and her baseline creatinine is 2.17. Her AK I could be due to sepsis and hypoperfusion, given her state of shock, and although she would benefit from additional IV fluids, it all depends on her perfusion, after starting her on pressors. - Nephrology on board, who suggested aggressive IV fluid resuscitation - Stress dose steroids of hydrocortisone 100 mg every 8 hours given # Diabetes mellitus, uncontrolled We'll keep the patient NPO, and Novolin insulin sliding scale. # Possible adrenal insufficiency Patient is currently on 60 mg of prednisone daily, and given her low blood pressure and acute infection, and renal insufficiency is likely one of the causes. We are obtaining endocrinology consult for possible lateral insufficiency as well as diabetes mellitus. The patient for now has been continued on hydrocortisone 100 mg every 8 hours. # I spoke to patient's partner's assessment over phone, obtained history, and updated him with details as well, and answered questions well. I told him about the pending ID and Podiatry consult. #Diet: NPO for now per Dr Chatman, might get podiatry rocedure in AM (per Dr Guillen). #DVT ppx: SQ Heparin #Code status: Full code Consult Acknowledgment - Thank you for your consult request. Robbi Chatman MD 07/28/17 1457: Assessment/Plan CRCU Other Findings/Comments: Robbi Baez M.D. have examined this patient, reviewed available EMR data, personally reviewed images, discussed with resident/PA/KNOWLEDGE ARCHITECT, discussed management plan with housestaff and nursing staff, discussed managment plan all of healthcare providers, discussed management plan with patient and/or family, agreed with resident/PA/KNOWLEDGE ARCHITECT. The past history and parts of the chart have been autopopulated. Impression 57-year-old woman * septic shock secondary to a soft tissue infection * ALBA - interstitial nephritis, also pre-renal azotemia vs ATN secondary to shock Plan Respiratory -monitor -check CXR ID -s/p I&D, podiatry, ID input -f/u all cultures CVS -monitor hemodynamics, titrate vasopressors -ECHO Heme -monitor coags, cbc Metabolic -ins/outs -creatinine -monitor lactate -check mag/phos Alimentary -NPO Neuro -no acute issues DVT prophylaxis at all times TTS 45 min Consult Acknowledgment - Thank you for your consult request.
--- NOTE | 2017-07-28 15:01 | RADIOLOGY REPORT ---
EXAMINATION: XR PORTABLE CHEST CLINICAL INFORMATION: Shortness of breath. COMPARISON: Chest x-ray dated 04/14/2017 and 03/16/2017. TECHNIQUE: Portable AP semierect view of the chest was obtained. FINDINGS: EKG leads overlie the chest. The cardiomediastinal silhouette is enlarged, unchanged. Low lung volumes are noted with slight elevation of the right hemidiaphragm. There are central vascular congestion and streaky perihilar opacities seen, consistent with pulmonary edema. Small right-sided pleural effusion is also noted. No pneumothorax is seen. Bony structures are unremarkable. IMPRESSION: Findings are consistent with congestive heart failure with low lung volumes, pulmonary edema, and small right-sided pleural effusion noted.
--- NOTE | 2017-07-28 16:30 | Cons- Infect Disease ---
General Information and HPI Consulting Request Date of Consult: 07/28/17 Requested By: Robbi Chatman MD Reason for Consult: Rule out sepsis Source of Information: patient, old records History of Present Illness: This is a 57-year-old woman with a history of diabetes, peripheral vascular disease, hospitalized nearly 5 months prior to admission with Group B strep sepsis secondary to osteomyelitis of a right Charcot foot, requiring drainage/ debridement, with OR cultures also positive for MRSA, treated with Vancomycin for 4 weeks, which was complicated by interstitial nephritis, confirmed on a renal biopsy, maintained on high dose steroids over the past 3 months, with residual renal insufficiency (creatinine 2.1), and with chronic swelling and intermittent erythema of the right foot, admitted today after presenting to the emergency room with the acute onset of right upper quadrant abdominal pain, associated with nausea but no vomiting, and right foot pain, and rapid respirations, dizziness and chills. On arrival to the emergency room she was afebrile. Her initial blood pressure was 166/67, but it dropped to 66/40. Laboratory data revealed a white blood cell count of 15,000, with 72 segs and 16 bands, BUN/creatinine 66 and 2.5, lactic acid 2.3, with normal liver enzymes. X -ray of the right foot revealed chronic osteomyelitis of the navicularcuneiform joints and tarsometatarsal joints, with worsening lateral displacement of the second metatarsal. Doppler of the right leg was negative. CT of the abdomen and pelvis revealed bilateral perinephric stranding, with a 4 mm calcification along the wall of the gallbladder, with no wall thickening or pericholecystic fluid. She was given 5 L of fluid in the emergency room and SoluCortef. A left femoral line was placed and, because of persistent hypotension, she was begun on Levophed. She was given Clindamycin and Ceftazidime. An aspiration of the plantar aspect of the right foot was performed, reportedly revealing bloody, purulent fluid. At present she notes some discomfort in the right upper quadrant. She also notes mild shortness of breath. Allergies/Medications Allergies: Coded Allergies: vancomycin (Severe, RASH 05/01/17) Home Med List: Atorvastatin Calcium 40 MG TABLET 1 TAB PO DAILY HIGH CHOLESTROL (Reported) Insulin Aspart, Recombinant (Novolog Flexpen) 100 UNIT/ML INSULN.PEN 0 SC SEE ADMIN CRITERIA DIABETES Take total maximum 70 units in a day based on your sugars BEFORE MEALS Blood Insulin Sugar Units <80 0 81-150 8 101-200 10 201-250 12 251-300 14 301-350 16 351-400 18 >400 18 Call Doctor AT BEDTIME Blood Insulin Sugar Units <80 0 81-100 0 101-200 0 201-250 0 251-300 2 301-350 3 351-400 4 >400 4 Call Doctor Insulin Glargine,Hum.rec.anlog (Ruba Elmore) 300 UNIT/ML (1.5 ML) INSULN.PEN 8 U SC QAM diabetes . Omeprazole Magnesium (Prilosec Otc) 20 MG TABLET. 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 . Psychosocial History Who Do You Live With? spouse Services at Home: Nursing Primary Language: Bengali ETOH Use: denies use Illicit Drug Use: denies illicit drug use Living Will? no Power of Talent Acquisition Manager/HCP? no Name of POA/HCP: Functional Ability ADLs Independent: dressing, eating, toileting, bathing. Ambulation: independent IADLs Independent: shopping, housework, finances, food prep, telephone, transportation , medication admin. Review of Systems Review of Systems Constitutional: Reports: chills. Denies: fever. Cardiovascular: Denies: chest pain. Respiratory: Denies: cough. GI: Denies: diarrhea, vomiting. Genitourinary: Reports: no symptoms. All Other Systems: Reviewed and Negative Exam & Diagnostic Data Last 24 Hrs of Vital Signs/I&O Vital Signs Date Time Temp Pulse Resp B/P B/P Pulse O2 O2 Flow FiO2 Mean Ox Delivery Rate 07/28 1607 100 17 118/66 100 Nasal 4.0L Cannula 07/28 1550 100 120/62 03/16 1543 101 126/62 07/28 1435 96 16 78/56 100 Nasal 2.0L Cannula 07/28 1420 94 16 90/54 100 Nasal 2.0L Cannula 07/28 1409 99 20 92/56 100 Room Air 07/28 1405 98 20 67/00 100 Nasal 2.0L Cannula 07/28 1400 95 68/00 07/28 1350 96 22 68/00 100 Nasal 2.0L Cannula 07/28 1315 98.0 86 22 68/00 99 Nasal 2.0L Cannula 07/28 1225 77 18 62/00 97 Room Air 07/28 1207 97.8 87 20 66/40 96 Room Air 07/28 0823 96 Room Air 07/28 0821 97.3 113 17 166/67 96 Room Air Intake & Output 07/28 1600 07/28 0800 07/28 0000 Intake Total 4500 Output Total Balance 4500 Intake, IV 4500 Patient 225 lb Weight Physical Exam Other Physical Findings: Afebrile on steroids. She is mildly lethargic, but easily arousable, in no acute distress and able to provide a complete history. Skin reveals no rash. HEENT cushingoid facies. Neck is supple with no adenopathy. Lungs are clear. Heart regular rhythm with no murmur. Abdomen is obese, soft, tender to palpation of the right upper quadrant, with no guarding or rebound, positive bowel sounds. Back no CVA tenderness. Extremities right foot plantar swelling and ecchymosis, cool to touch, with mild tenderness on palpation, with no erythema; bloody fluid from the right foot incision; 1+ pulses; left femoral triple lumen catheter in place. Neuro is without focality. Last 24 Hours of Lab Results: Laboratory Tests 07/28 07/28 1135 0818 Chemistry Sodium (137 - 145 mmol/L) 134 L Potassium (3.5 - 5.1 mmol/L) 3.6 Chloride (98 - 107 mmol/L) 101 Carbon Dioxide (22 - 30 mmol/L) 21 L Anion Gap (5 - 16) 12 BUN (7 - 17 mg/dL) 66 H Creatinine (0.5 - 1.0 mg/dL) 2.5 H Estimated GFR (>60 ml/min) 20 L BUN/Creatinine Ratio (7 - 25 %) 26.4 H Glucose (65 - 99 mg/dL) 88 Lactic Acid (0.7 - 2.1 mmol/L) 2.2 H 2.3 H Calcium (8.4 - 10.2 mg/dL) 9.4 Phosphorus (2.5 - 4.5 mg/dL) 3.7 Magnesium (1.6 - 2.3 mg/dL) 1.1 L Total Bilirubin (0.2 - 1.3 mg/dL) 0.7 AST (14 - 36 U/L) 15 ALT (9 - 52 U/L) 26 Alkaline Phosphatase (<127 U/L) 60 Troponin I (< 0.11 ng/ml) 0.05 Total Protein (6.3 - 8.2 g/dL) 5.3 L Albumin (3.5 - 5.0 g/dL) 2.8 L Globulin (1.9 - 4.2 gm/dL) 2.5 Albumin/Globulin Ratio (1.1 - 2.2 %) 1.1 Lipase (23 - 300 U/L) 237 Hematology CBC w Diff MAN DIFF ORDERED WBC (4.8 - 10.8 /CUMM) 14.9 H RBC (4.20 - 5.40 /CUMM) 3.27 L Hgb (12.0 - 16.0 G/DL) 8.8 L Hct (37 - 47 %) 26.1 L MCV (81.0 - 99.0 FL) 79.7 L MCH (27.0 - 31.0 PG) 26.8 L MCHC (33.0 - 37.0 G/DL) 33.6 RDW (11.5 - 14.5 %) 16.1 H Plt Count (130 - 400 /CUMM) 276 MPV (7.4 - 10.4 FL) 6.7 L Gran % (42.2 - 75.2 %) 90.9 H Lymphocytes % (20.5 - 51.1 %) 7.7 L Monocytes % (1.7 - 9.3 %) 0.9 L Eosinophils % (0 - 5 %) 0.3 Basophils % (0.0 - 2.0 %) 0.2 Absolute Granulocytes (1.4 - 6.5 /CUMM) 13.6 H Segmented Neutrophils (42.2 - 75.2 %) 72 Band Neutrophils (0.0 - 5.0 %) 16 H Absolute Lymphocytes (1.2 - 3.4 /CUMM) 1.2 Lymphocytes (20.5 - 51.1 %) 4 L Monocytes (1.7 - 9.3 %) 7 Absolute Monocytes (0.10 - 0.60 /CUMM) 0.1 Eosinophils (0 - 5.0 %) 1 Absolute Eosinophils (0.0 - 0.7 /CUMM) 0 Absolute Basophils (0.0 - 0.2 /CUMM) 0 Platelet Estimate (ADEQUATE) VERIFIED BY SMEAR Normochromic RBCs VERIFIED Anisocytosis 1+ Microcytic Cells 1+ Last 24 Hours of Dario Results: Blood cultures 2 July 28 pending Right foot culture July 28 pending Diagnostic Data Recent Imaging Findings: X-ray of the right foot revealed chronic osteomyelitis of the navicular cuneiform joints and tarsometatarsal joints, with worsening lateral displacement of the second metatarsal. Doppler of the right leg was negative. CT of the abdomen and pelvis revealed bilateral perinephric stranding, with a 4 mm calcification along the wall the gallbladder, with no wall thickening or pericholecystic fluid. Chest x-ray reveals low lung volumes, with central vascular congestion and streaky perihilar opacities Assessment/Plan Assessment/Plan Impression: This is a 57-year-old woman with a history of diabetes, peripheral vascular disease and osteomyelitis of a right Charcot foot, treated with 4 weeks of Vancomycin, which was complicated by interstitial nephritis, maintained on high dose steroids over the past 3 months, with residual renal insufficiency ( creatinine 2.1), and with chronic swelling and intermittent erythema of the right foot, admitted today with the acute onset of right upper quadrant abdominal pain and right foot pain, associated with rapid respirations, dizziness and chills, found to be afebrile and hypotensive, with a leukocytosis and elevated lactic acid. Her clinical picture is consistent with sepsis. She has several possible sources including the right foot, with the report of purulent drainage on aspiration, though she has no significant erythema or fluctuance, the biliary tree, with the report of nausea and right upper quadrant pain and with a possible gallstone noted on the CT of the abdomen, though there is no wall thickening or pericholecystic fluid on the CT scan, the urinary tract, with bilateral perinephric stranding on the CT, though, unfortunately no urinalysis or urine culture has been obtained, or the lungs, given her subjective shortness of breath, though her lung exam and chest x-ray are not suggestive of pneumonia. She will need to be covered broadly pending cultures. She has been evaluated by Podiatry and further imaging of the foot may be helpful in ruling this out as a source of sepsis. Given her diagnosis of interstitial nephritis, which was felt to be secondary to Vancomycin, this medication will need to be avoided. Her left femoral line has just been placed but, once she has stabilized, alternative access will need to be obtained so that this can be removed. Suggestion: 1. Obtain a urinalysis and urine culture 2. Right upper quadrant ultrasound 3. MRI or, if unable to obtain today, would do a CT of the right foot 4. Follow-up right foot and blood cultures 5. Continue Clindamycin 600 mg IV every 8 hours and Ceftazidime 1 g IV every 12 hours pending above Consult Acknowledgment - Thank you for your consult request.
[2017-07-28 16:45] VITALS: BP 116/64
--- NOTE | 2017-07-28 17:54 | Cons- Endocrinology ---
General Information and HPI Consulting Request Date of Consult: 07/28/17 Requested By: medical team Reason for Consult: uncontrolled diabetes Source of Information: patient, old records Exam Limitations: no limitations History of Present Illness: This 57-year-old woman came to emergency room because of increasing pain in her right foot and right upper quadrant pain. The patient has been found to have osteomyelitis involving the right foot. She dropped her blood pressure after coming to the ER and after receiving some morphine. She is presently on levophed. It is felt that she has sepsis and she has been seen by Dr. Doll and has been covered with IV antibiotics. The patient is presently n.p.o. and has been seen by Dr. Guillen. She is being considered for surgery on her right foot if her cvondition is stable enough to allow it tomorrow. The patient was on prednisone 60 mg once a day at home as treatment for interstitial nephritis of her kidneys. She has been converted to Solu-Cortef 100 mg IV every 8 hours. Allergies/Medications Allergies: Coded Allergies: vancomycin (Severe, RASH/INTERSTITIAL NEPHRITIS 07/29/17) Home Med List: Atorvastatin Calcium 40 MG TABLET 1 TAB PO DAILY HIGH CHOLESTROL (Reported) Insulin Aspart, Recombinant (Novolog Flexpen) 100 UNIT/ML INSULN.PEN 0 SC SEE ADMIN CRITERIA DIABETES Take total maximum 70 units in a day based on your sugars BEFORE MEALS Blood Insulin Sugar Units <80 0 81-150 8 101-200 10 201-250 12 251-300 14 301-350 16 351-400 18 >400 18 Call Doctor AT BEDTIME Blood Insulin Sugar Units <80 0 81-100 0 101-200 0 201-250 0 251-300 2 301-350 3 351-400 4 >400 4 Call Doctor Insulin Glargine,Hum.rec.anlog (Toujeo Solostar) 300 UNIT/ML (1.5 ML) INSULN.PEN 8 U SC QAM diabetes . Omeprazole Magnesium (Prilosec Otc) 20 MG TABLET. 1 TAB PO DAILY GERD ( Reported) Prednisone 20 MG TABLET 60 MG PO DAILY kidney Review of Systems Review of Systems Constitutional: Denies: chills, fever. Cardiovascular: Denies: chest pain. Respiratory: Denies: short of breath. GI: Reports: abdominal pain. Skin: Reports: lesions (right foot). 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 . Psychosocial History Where Do You Live? Home Who Do You Live With? spouse Services at Home: Nursing Primary Language: Citizen Of [place] Smoking Status: Never Smoked ETOH Use: denies use Illicit Drug Use: denies illicit drug use Living Will? no Power of Business Analyst Project Manager/HCP? no Name of POA/HCP: Functional Ability ADLs Independent: dressing, eating, toileting, bathing. Ambulation: independent IADLs Independent: shopping, housework, finances, food prep, telephone, transportation , medication admin. Exam & Diagnostic Data Last 24 Hrs of Vital Signs/I&O Vital Signs Date Time Temp Pulse Resp B/P B/P Pulse O2 O2 Flow FiO2 Mean Ox Delivery Rate 07/28 1645 90 Nasal 4.0L Cannula 07/28 1645 97.1 101 18 116/64 90 Nasal 4.0L Cannula 07/28 1607 100 17 118/66 100 Nasal 4.0L Cannula 07/28 1550 100 120/62 07/28 1543 101 126/62 07/28 1435 96 16 78/56 100 Nasal 2.0L Cannula 07/28 1420 94 16 90/54 100 Nasal 2.0L Cannula 07/28 1409 99 20 92/56 100 Room Air 07/28 1405 98 20 67/00 100 Nasal 2.0L Cannula 07/28 1400 95 68/00 07/28 1350 96 22 68/00 100 Nasal 2.0L Cannula 07/28 1315 98.0 86 22 68/00 99 Nasal 2.0L Cannula 07/28 1225 77 18 62/00 97 Room Air 07/28 1207 97.8 87 20 66/40 96 Room Air 07/28 0823 96 Room Air 07/28 0821 97.3 113 17 166/67 96 Room Air Intake & Output 07/28 1600 07/28 0800 07/28 0000 Intake Total 4500 Output Total Balance 4500 Intake, IV 4500 Patient 225 lb Weight Vital Signs Date Time Temp Pulse Resp B/P B/P Pulse O2 O2 Flow FiO2 Mean Ox Delivery Rate 07/28 1645 90 Nasal 4.0L Cannula 07/28 1645 97.1 101 18 116/64 90 Nasal 4.0L Cannula 07/28 1607 100 17 118/66 100 Nasal 4.0L Cannula 07/28 1550 100 120/62 07/28 1543 101 126/62 07/28 1435 96 16 78/56 100 Nasal 2.0L Cannula 07/28 1420 94 16 90/54 100 Nasal 2.0L Cannula 07/28 1409 99 20 92/56 100 Room Air 07/28 1405 98 20 67/00 100 Nasal 2.0L Cannula 07/28 1400 95 68/00 07/28 1350 96 22 68/00 100 Nasal 2.0L Cannula 07/28 1315 98.0 86 22 68/00 99 Nasal 2.0L Cannula 07/28 1225 77 18 62/00 97 Room Air 07/28 1207 97.8 87 20 66/40 96 Room Air 07/28 0823 96 Room Air 07/28 0821 97.3 113 17 166/67 96 Room Air Intake & Output 07/28 1600 07/28 0800 07/28 0000 Intake Total 4500 Output Total Balance 4500 Intake, IV 4500 Patient 225 lb Weight Physical Exam General Appearance: alert, awake Eyes: Bilateral: normal appearance. Neck: normal inspection Respiratory: normal breath sounds Cardiovascular: regular rate/rhythm Gastrointestinal: normal bowel sounds, soft Extremities: right foot swollen and bandaged Assessment/Plan Assessment/Plan This 57-year-old woman has a history of type 2 diabetes. She was placed on insulin during her last admission because her sugar became more difficult to control after the addition of prednisone she presents now with osteomyelitis of the right foot and possible sepsis. She is on Solu-Cortef milligrams IV every 8 hours. Her last sugar was 117 The patient is going to be on an n.p.o. regimen tonight. I would run D5 half- normal saline +20 mEq KCl at 50 cc an hour. I would change her insulin coverage from regular insulin to NovoLog every 4 hours. NovoLog coverage every 4 hours should be less than 150 give no insulin, 151-200 give 3 units NovoLog, 201-250 give 4 units NovoLog, 251-300 give 5 units NovoLog, 301-350 give 6 units NovoLog, 351-400 give 7 units NovoLog. When the patient is eating again we can restart some Levemir and change her sliding scale NovoLog to before meals. Consult Acknowledgment - Thank you for your consult request.
[2017-07-28 18:22] LABS: ABSOLUTE BASOPHIL COUNT 0 /CUMM (0.0-0.2); ABSOLUTE EOSINOPHIL COUNT 0 /CUMM (0.0-0.7); ABSOLUTE GRANULOCYTE CT 20.2 /CUMM (1.4-6.5); ABSOLUTE LYMPH COUNT 0.6 /CUMM (1.2-3.4); ABSOLUTE MONOCYTE COUNT 0.6 /CUMM (0.10-0.60); BASOPHIL % 0 % (0.0-2.0); EOSINOPHIL % 0.2 % (0-5); MEAN CORPUSCULAR HGB 27.6 PG (27.0-31.0); MEAN CORPUSCULAR HGB CONC 34.1 G/DL (33.0-37.0); MEAN CORPUSCULAR VOLUME 80.9 FL (81.0-99.0); MEAN PLATELET VOLUME 7.1 FL (7.4-10.4); PLATELET COUNT 317 /CUMM (130-400); RBC DISTRIBUTION WIDTH 16.9 % (11.5-14.5); RED BLOOD CELL CT 3.21 /CUMM (4.20-5.40); WHITE BLOOD CELL COUNT 21.5 /CUMM (4.8-10.8)
[2017-07-28 18:31] LABS: PT 13.7 SEC (9.4-12.5); PTT 25 SEC (25-37)
[2017-07-28 18:44] LABS: GRANULOCYTE % 94.1 % (42.2-75.2)
--- NOTE | 2017-07-28 21:09 | ECHOCARDIOGRAM REPORT ---
BARBY WILKS Age: 57 : 1960 Gender: F Exam Date: 07/28/2017 16:30 Exam Location: [facility] Ht (in): 68 Wt (lb): 225 BSA: 2.25 BP: 118 / 64 Ordering Physician: Kyle Cuadra MD Referring Physician: Kyle Cuadra MD Technologist: Jeffy Caldwell [facility] Room Number: 101-1 Indications: Septic shock Rhythm: see ECG Technical Quality: Fair FINDINGS Left Ventricle Left ventricular cavity size normal. Left ventricular wall thickness mildly increased. No obvious regional wall motion abnormalities. Left ventricular ejection fraction is estimated at > 60 %. Right Ventricle Right ventricle not well visualized, grossly normal. Right Atrium The right atrium is normal in size. Left Atrium The left atrium is normal in size. Mitral Valve The mitral valve is normal in structure and function. Trace mitral regurgitation. Aortic Valve Structurally normal aortic valve without significant sclerosis or stenosis. Tricuspid Valve The tricuspid valve is normal in structure and function. No tricuspid stenosis. Trace tricuspid regurgitation. Unable to estimate the right ventricular systolic pressure. Pulmonic Valve Pulmonic valve not well visualized, grossly normal. Pericardium No obvious pericardial effusion. Great Vessels Normal size aortic root. CONCLUSIONS Left ventricular cavity size normal. Left ventricular wall thickness mildly increased. No obvious regional wall motion abnormalities. Left ventricular ejection fraction is estimated at > 60 %. Right ventricle not well visualized, grossly normal. Unable to estimate the right ventricular systolic pressure. No obvious pericardial effusion. William Ortega M.D. (Electronically Signed) Final Date: 28 July 2017 21:09 MEASUREMENTS (Male / Female) Normal Values 2D ECHO LV Diastolic Diameter PLAX 4.1 cm 4.2 - 5.9 / 3.9 - 5.3 cm LV Systolic Diameter PLAX 2.6 cm 2.1 - 4.0 cm LV Fractional Shortening PLAX 36.6 % 25 - 46 % LV Ejection Fraction 2D Teich 66.8 % IVS Diastolic Thickness 1.6 cm LVPW Diastolic Thickness 1.6 cm LV Relative Wall Thickness 0.8 LVOT Diameter 2.3 cm Aortic Root Diameter 3.1 cm LA Systolic Diameter LX 3.6 cm 3.0 - 4.0 / 2.7 - 3.8 cm LV Ejection Fraction MOD BP 71.7 % >= 55 % LV Cardiac Index MOD BP 2581.2 cm/minm LV Diastolic Length 4C 7.6 cm 6.9 - 10.3 cm LV Diastolic Area 4C 29.6 cm LV Diastolic Volume MOD 4C 96.0 cm LV Ejection Fraction MOD 4C 74.0 % LV Stroke Volume MOD 4C 71.0 cm LV Cardiac Index MOD 4C 2776.7 cm/minm LV Systolic Length 4C 7.0 cm LV Systolic Area 4C 14.1 cm LV Systolic Volume MOD 4C 25.0 cm LV Ejection Fraction MOD 2C 70.6 % LV Cardiac Index MOD 2C 2346.5 cm/minm LV Diastolic Volume 4C AL 97.4 cm 85 - 139 / 69 - 109 cm LV Systolic Volume 4C AL 24.3 cm LV Ejection Fraction 4C AL 75.0 % LV Stroke Volume 4C AL 73.0 cm LV Cardiac Index 4C AL 2856.3 cm/minm LV Ejection Fraction 2C AL 73.6 % LV Cardiac Index 2C AL 2498.1 cm/minm Ascending Aorta Diameter 3.4 cm DOPPLER AV Peak Velocity 153.0 cm/s AV Peak Gradient 9.4 mmHg LVOT Peak Velocity 116.0 cm/s LVOT Peak Gradient 5.4 mmHg AV Area Cont Eq pk 3.2 cm Mitral E Point Velocity 101.0 cm/s Mitral A Point Velocity 58.7 cm/s Mitral E to A Ratio 1.7 TR Peak Velocity 231.0 cm/s TR Peak Gradient 21.3 mmHg PV Peak Velocity 113.0 cm/s PV Peak Gradient 5.1 mmHg
--- NOTE | 2017-07-28 21:57 | CT SCAN REPORT ---
EXAMINATION: CT LOWER EXTREMITY WITHOUT CONTRAST, right foot CLINICAL INFORMATION: Fever. Swelling. Redness. Concern for osteomyelitis. COMPARISON: Plain film exam right foot 07/28/2017, 04/24/2017. MR right foot 04/14/2017 TECHNIQUE: Axial images obtained through the right foot. Coronal and sagittal reformatted images are performed at the CT scanner DLP: 29.4 mGy-cm FINDINGS: There is a skin defect, ulceration, of the plantar surface of the foot around the region of the metatarsals. This defect extends into the deep soft tissues, about 2 cm in depth. There is edema around this ulceration involving both the subcutaneous tissue, the skin line and the muscle. There is no focal fluid collection. There is severe deformity of the metatarsals and partial irregularity of the cortical surfaces of the navicular and cuboid. There is irregularity the articular surfaces of all of the metatarsals at the metatarsotarsal joints. There is loss of the normal articulation of these bones. This includes subluxation of the second through fifth metatarsals laterally. These changes however are chronic stable since prior plain film study. There is no specific bone destruction that would be indicative of osteomyelitis as the appearance is stable since prior plain film exams. Would be difficult though to exclude osteomyelitis given the marked deformity of the bones. IMPRESSION: 1. Skin ulceration at the plantar side of the foot. There is edema of the plantar soft tissues of the foot. No focal abscess seen. 2. Chronic deformity of the midfoot is stable in appearance since prior study of 04/24/2017 , no specific bone destruction that would be indicative of osteomyelitis. Would be difficult though to exclude osteomyelitis given the marked deformity of the bones.
--- NOTE | 2017-07-28 22:50 | Cons- Podiatry ---
General Information and HPI Consulting Request Date of Consult: 07/28/17 Requested By: Robbi Chatman MD History of Present Illness: Marlene is a 57 year old female with an extensive past medical history, including diabetes, and peripheral neuropathy complicated by neuropathic arthritis. She was admitted last year for a foot abscess and sepsis, requiring an extended course of outpatient IV vancomycin, from which she developed an interstitial nephritis. She presents today complaining of right foot pain and swelling and right upper quadrant abdominal pain. She became hypotensive in the ED, requiring IV pressors. Allergies/Medications Allergies: Coded Allergies: vancomycin (Severe, RASH 05/01/17) Home Med List: Atorvastatin Calcium 40 MG TABLET 1 TAB PO DAILY HIGH CHOLESTROL (Reported) Insulin Aspart, Recombinant (Novolog Flexpen) 100 UNIT/ML INSULN.PEN 0 SC SEE ADMIN CRITERIA DIABETES Take total maximum 70 units in a day based on your sugars BEFORE MEALS Blood Insulin Sugar Units <80 0 81-150 8 101-200 10 201-250 12 251-300 14 301-350 16 351-400 18 >400 18 Call Doctor AT BEDTIME Blood Insulin Sugar Units <80 0 81-100 0 101-200 0 201-250 0 251-300 2 301-350 3 351-400 4 >400 4 Call Doctor Insulin Glargine,Hum.rec.anlog (Toujeo Solostar) 300 UNIT/ML (1.5 ML) INSULN.PEN 8 U SC QAM diabetes . Omeprazole Magnesium (Prilosec Otc) 20 MG TABLET. 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 . Psychosocial History Where Do You Live? Home Who Do You Live With? spouse Services at Home: Nursing Primary Language: Vietnamese Smoking Status: Never Smoked ETOH Use: denies use Illicit Drug Use: denies illicit drug use Living Will? no Power of Triage Assistant/HCP? no Name of POA/HCP: Functional Ability ADLs Independent: dressing, eating, toileting, bathing. Ambulation: independent IADLs Independent: shopping, housework, finances, food prep, telephone, transportation , medication admin. Review of Systems Review of Systems: Unremarkable except for that noted in history of present illness Exam & Diagnostic Data Vital Signs and I&O Vital Signs Date Time Temp Pulse Resp B/P B/P Pulse O2 O2 Flow FiO2 Mean Ox Delivery Rate 07/28 2207 100 92/57 07/28 2000 97 Nasal 4.0L Cannula 07/28 1645 90 Nasal 4.0L Cannula 07/28 1645 97.1 101 18 116/64 90 Nasal 4.0L Cannula 07/28 1607 100 17 118/66 100 Nasal 4.0L Cannula 07/28 1550 100 120/62 07/28 1543 101 126/62 07/28 1435 96 16 78/56 100 Nasal 2.0L Cannula 07/28 1420 94 16 90/54 100 Nasal 2.0L Cannula 07/28 1409 99 20 92/56 100 Room Air 07/28 1405 98 20 67/00 100 Nasal 2.0L Cannula 07/28 1400 95 68/00 07/28 1350 96 22 68/00 100 Nasal 2.0L Cannula 07/28 1315 98.0 86 22 68/00 99 Nasal 2.0L Cannula 07/28 1225 77 18 62/00 97 Room Air 07/28 1207 97.8 87 20 66/40 96 Room Air 07/28 0823 96 Room Air 07/28 0821 97.3 113 17 166/67 96 Room Air Intake & Output 07/28 1600 07/28 0800 07/28 0000 07/27 1600 07/27 0800 07/27 0000 Intake Total 4500 Output Total Balance 4500 Intake, IV 4500 Patient 225 lb Weight Physical Exam: Edema noted to right foot with some erythema noted to dorsal foot versus contralateral foot. Slightly warmer to touch versus contralateral limb. Plantar incision noted with associated ecchymosis. No crepitus or fluctuance appreciated. Bloody drainage noted from bedside I&D site, without foul odor noted. Assessment/Plan Assessment/Plan Sepsis in a setting of a Charcot foot, complicated by possible plantar space abscess. Further imaging with MRI would be helpful to further characterize the xray findings. For now, continue with broad-spectrum IV antibiotics per ID recommendations and medical management. If the Marlene is stabilized, will consider a formal I&D in the OR. Will re-evaluate in AM. Consult Acknowledgment - Thank you for your consult request.
[2017-07-29] VITALS: BP 92/60
--- NOTE | 2017-07-29 00:32 | Event Note ---
Event Note Event Note: The Lab call and inform that the p.t grow and one bottle of the blood culture gram-positive cocci in clusters patient currently on IV clindamycin and Fortaz.
[2017-07-29 05:30] LABS: ABSOLUTE BASOPHIL COUNT 0 /CUMM (0.0-0.2); ABSOLUTE EOSINOPHIL COUNT 0 /CUMM (0.0-0.7); ABSOLUTE GRANULOCYTE CT 27.4 /CUMM (1.4-6.5); ABSOLUTE LYMPH COUNT 0.6 /CUMM (1.2-3.4); ABSOLUTE MONOCYTE COUNT 0.8 /CUMM (0.10-0.60); BASOPHIL % 0 % (0.0-2.0); EOSINOPHIL % 0 % (0-5); GRANULOCYTE % 95.2 % (42.2-75.2); HEMATOCRIT 26.5 % (37-47); MEAN CORPUSCULAR HGB 27.4 PG (27.0-31.0); MEAN CORPUSCULAR HGB CONC 33.7 G/DL (33.0-37.0); MEAN CORPUSCULAR VOLUME 81.3 FL (81.0-99.0); MEAN PLATELET VOLUME 7.2 FL (7.4-10.4); PLATELET COUNT 326 /CUMM (130-400); RBC DISTRIBUTION WIDTH 16.9 % (11.5-14.5); RED BLOOD CELL CT 3.26 /CUMM (4.20-5.40); WHITE BLOOD CELL COUNT 28.8 /CUMM (4.8-10.8)
[2017-07-29 08:00] VITALS: BP 114/60
--- NOTE | 2017-07-29 08:16 | PN- Resident CRCU ---
Subjective HPI/CRCU Issues: Overnight issues: Patient reports that she is feeling much better today. Patient states that she is no longer having any abdominal discomfort. Patient denies any pain. Patient denies fever/chills, lightheadedness, numbness, nausea/vomiting, constipation/ diarrhea, chest pain/palpitations, shortness of breath. Patient has a norris in place that is draining clear yellow urine. Vitals: MAXIMUM TEMPERATURE of 98.2, heart rate 90s to 102 sinus rhythm to sinus tach, respiration rate 14-20, blood pressure between 85-118/49-64, on levo fed at 3 mics, saturating between 91 to 100% on room air I: 1162, O: 550 Labs: WBC 28.8 with 95.2% granulocytes and 21 bands, H&H 8.9 and 26.5, platelets 326 Sodium 137, potassium 5.2 up from 3.6 after being repleted, chloride 110, bicarbonate 13, BUN 63, creatinine 2.7 up from 2.5, calcium 7.6, phosphorus 7.7, magnesium 1.1, LFTs within normal limits, albumin 2.2 Microbiology: Blood culture 2 from July 28 grown gram-positive cocci in clusters, identification and sensitivities pending Urine and foot culture from July 28 with no growth to date. Imaging: Chest x-ray from July 28- consistent with congestive heart failure with low lung volumes, pulmonary edema, small right-sided pleural effusion CT abdomen and pelvis without contrast- no acute abdominal or pelvic inflammatory infectious process seen, bilateral perinephric stranding without hydronephrosis or nephrolithiasis, mild diverticulosis without evidence of diverticulitis. Ultrasound Doppler of right lower extremity: No evidence of DVT Right foot x-ray showing findings suggestive of chronic osteomyelitis of the navicular/cuneiform joints and tarsal metatarsal joints.malalignment, erosive change and fragmentation of the tarsometatarsal joints with worsening lateral displacement of the second metatarsal with respect to the eroded, severely deformed middle cuneiform. The erosive changes at fourth and fifth tarsometatarsal joints have worsened compared to 04/24/2017. There is likely a component of neuropathic arthropathy in addition to infectious/inflammatory arthritis. The erosion of the fifth metatarsal head, presumably caused by infection, is unchanged. CT right lower extremity without contrast 1. Skin ulceration at the plantar side of the foot. There is edema of the plantar soft tissues of the foot. No focal abscess seen. 2. Chronic deformity of the midfoot is stable in appearance since prior study of 04/24/2017 , no specific bone destruction that would be indicative of osteomyelitis. Would be difficult though to exclude osteomyelitis given the marked deformity of the bones. Echo: Left ventricular cavity size normal. Left ventricular wall thickness mildly increased. No obvious regional wall motion abnormalities. Left ventricular ejection fraction is estimated at > 60 %. Right ventricle not well visualized, grossly normal. Unable to estimate the right ventricular systolic pressure. No obvious pericardial effusion. Objective Vital Signs & I&O Last 8 Hrs of Vitals and I&O: Vital Signs Date Time Temp Pulse Resp B/P B/P Pulse O2 O2 Flow FiO2 Mean Ox Delivery Rate 07/29 2000 99 Room Air 07/29 1530 98.1 92 18 94/60 97 Room Air 07/29 0800 97.9 96 22 114/60 97 Room Air Room Air 07/29 0701 96 114/68 07/29 0400 94 Room Air 07/29 0000 99 Nasal 4.0L Cannula 07/29 0000 98.2 102 18 92/60 99 Nasal 4.0L Cannula 07/28 2207 100 92/57 Intake & Output 07/29 1600 07/29 0800 07/29 0000 Intake Total 423 501 2414 Output Total 350 250 500 Balance 540 537 8330 Intake, IV 223 706 1922 Intake, Oral 180 0 Number 0 0 Bowel Movements Output, Urine 350 250 500 Intake & Output 07/29 1600 Intake Total 927 Output Total 350 Balance 577 Intake, IV 747 Intake, Oral 180 Number 0 Bowel Movements Output, Urine 350 Exam General Appearance: well developed/nourished, no apparent distress, alert, awake , comfortable Respiratory: normal breath sounds, chest non-tender, lungs clear Cardiovascular: regular rate/rhythm Gastrointestinal: normal bowel sounds, soft, non-tender Extremities: right foot wrapped in kerlex, decreased sensation in the right foot , diminished pulses bilaterally Cranial Nerves: normal hearing, normal speech Skin Temp/Moisture Exam: Warm/Dry Sepsis Skin Exam (color): Normal for Ethnicity IV Drips IV Drips: IV Levo Current Medications: Current Medications Sig/Chuck Start time Last Medication Dose Route Stop Time Status Admin Atorvastatin Calcium 40 MG 1700 07/29 1700 AC 07/29 PO 1645 Ceftazidime 1,000 MG Q12 07/28 2200 CAN IV Ceftazidime 1,000 MG Q12 07/28 1256 DC 07/29 IV 0944 Clindamycin 600 MG IQ8 07/29 0000 DC 07/29 Dextrose/Water 50 ML IV 0807 Daptomycin 600 MG Q24H 07/29 1300 AC 07/29 Sodium Chloride 50 ML IV 1240 Daptomycin 600 MG Q24H 07/29 1200 DC Sodium Chloride 50 ML IV Dextrose/Sodium 1,000 ML Q13H 07/29 2030 AC Chloride IV Dextrose/Sodium 1,000 ML Q10H 07/29 1245 CAN Chloride IV Dextrose/Sodium 1,000 ML Q20H 07/29 0830 DC 07/29 Chloride IV 0834 Heparin Sodium 5,000 UNIT Q8 07/28 1400 AC 07/29 (Porcine) SC 1407 Hydrocortisone 100 MG Q8 07/28 1400 AC 07/29 Sodium Succinate IV 07/30 0000 1407 Insulin Aspart 0 AT BEDTIME 07/29 2200 CAN SC Insulin Aspart 0 Q4 07/29 2200 AC SC Insulin Aspart 0 TIDAC 07/29 1700 DC 07/29 SC 1646 Insulin Aspart 0 Q4 07/28 2200 DC 07/29 SC 0944 Insulin Detemir 5 UNITS BID 07/29 1400 AC 07/29 SC 1407 Insulin Detemir 5 UNITS BID 07/29 1100 DC SC Magnesium Sulfate 1 GM Q2H 07/29 0830 DC 07/29 Dextrose/Water 100 ML IV 07/29 1229 0944 Non-Formulary 0 SEE ADMIN CRITERIA 07/29 1115 DC Medication ANY Norepinephrine 4 MG Q24H 07/28 1700 AC 07/29 Sodium Chloride 250 ML IV 0701 Omeprazole 20 MG DAILY AC 07/29 0700 AC 07/29 PO 0630 Potassium Chloride 20 MEQ Q20H 07/28 1830 DC 07/28 Dextrose/Sodium 1,000 ML IV 1835 Chloride Prednisone 60 MG DAILY 07/30 1000 AC PO Sodium Chloride 1,000 ML Q13H 07/29 2030 CAN IV Sodium Chloride 1,000 ML Q8H 07/29 1245 DC 07/29 IV 1247 Impression/Plan Impression/Problem List Impression: 57-year-old female with past medical history of interstitial nephritis on steroids, peripheral vascular disease, diabetes with nephropathy, hyperlipidemia , posttraumatic arthritis of right foot due to MSSA complicated by reaction to vancomycin/renal injury, recent admission at [facility] from 04/24 till 05/05 for ALBA, came in with complaints of foot wound and abdominal pain. PE: Significant for hypotension, right foot injury which was incised in the ED, and well dressed. Rest of the exam was not significant.Her lab values are significant for leukocytosis 14.9 with bandemia 16, anemia H&H 8.8/26.1, platelet 276, sodium/potassium 134/3.6, urine/creatinine 66/2.5, glucose 88, initial lactic as 2.3 later 2.2, normal LFTs, albumin 2.8. UA is pending. EKG: not done in the ED. X-ray of R foot, consistent with chronic osteomyelitis with suggestion of acute infectious/inflammatory process. Doppler of right lower extremity is negative for DVT. CT abd/pelvis does not show any acute abdominal or pelvic inflammatory/ infectious process. Bilateral perinephric stranding has been noted without hydronephrosis or nephrolithiasis was stopped mild diverticulosis without evidence of diverticulitis noted. Patient received 3 L of normal saline for fluid resuscitation, IV antibiotics Ceftazidime, clindamycin, and Vaughn has been started for pressor support in the ED. Patient initially presented with blood pressure of 166/67, but her blood pressure dropped to 62 over Doppler at 12:25 PM, thus requiring more IV fluid nurses station and central line placement. She was initially thought to be admitted to [facility] but later given her current conditions has been decided to patient and his in the ICU, for the management of following issues: # Septic shock likely secondary to right foot osteomyelitis Patient initially came in with normal blood pressure, received morphine in the ED, which dropped her blood pressure, which was not amenable by IV fluids alone and was thus started on pressors. For now we will continue Levophed infusion. We will watch patient's vitals status very closely in the ICU, and given the cause of his shock, will continue antibiotics per ID consultation, and possible debridement per podiatry consultation. Blood cultures are growing gram + cocci in clusters x 2 and foot culture is growing staph aureus. Sensitivities are still pending. Per ID, patient's clindamycin and ceftaz were discontinued and patient was started on daptomycin 600mg q24h. Baseline CPK was obtained. Patient initially presented with CXR showing pulmonary edema. Repeat CXR today showed no vascular congestion or congestive heart failure. Patient's fluids were increased today. - continue daptomycin 600mg q24 hr - continue to follow up blood cultures - identification and sensitivities pending - continue IV Levofed and wean off as tolerated - continue IV fluids - continue to monitor vitals # Right foot wound, to rule out acute osteomyelitis Patient's clinical feature and left findings are consistent with infective process of right foot wound, and the x-ray of the right foot is clearly suggesting chronic osteomyelitis and possible acute infectious/inflammatory process. Spoke to podiatry today. Attempted to get an MRI today however was unable to as patient did not tolerating being weaned off pressor support. - Patient will be NPO tonight. Podiatry is to re-evaluate tomorrow. - Continue IV antibiotics per ID - Continue daily dressing changes - Follow up blood and foot cultures # Acute on chronic kidney disease, multifactorial Patient's creatinine today is 2.5, and her baseline creatinine is 2.17. Her AK I could be due to sepsis and hypoperfusion, given her state of shock, and although she would benefit from additional IV fluids, it all depends on her perfusion, after starting her on pressors. - Nephrology on board, who suggested aggressive IV fluid resuscitation - Stress dose steroids of hydrocortisone 100 mg every 8 hours given # Diabetes mellitus, uncontrolled - Continue insulin SS - Started on levemir 5 units BID - Endocrinology on board. Appreciate recommendations - Continue accuchecks TIDAC/qHS # Possible adrenal insufficiency Patient is currently on 60 mg of prednisone daily, and given her low blood pressure and acute infection, and renal insufficiency is likely one of the causes. We are obtaining endocrinology consult for possible lateral insufficiency as well as diabetes mellitus. The patient for now has been continued on hydrocortisone 100 mg every 8 hours. - Continue IV Solu-Cortef today only - Start PO Prednisone daily on 07/30. #Diet: NPO after midnight per podiatry. Podiatry to re-evaluate in the AM. #DVT ppx: SQ Heparin #Code status: Full code Problem List: 1. Sepsis 2. Osteomyelitis of right foot Pain Ratin Tomorrow's Labs & Rationales: cbc - ongoing infection bep - renal function Plan DVT/Prophylaxis: mechanical, pharmacological
--- NOTE | 2017-07-29 09:17 | PN- CRCU ---
Subjective HPI/Critical Care Issues: Patient is awake alert comfortable with improving hemodynamics blood pressures improved and pressors are being tapered. Blood cultures are positive for GPC's identification pending Objective Current Medications: Current Medications Sig/Chuck Start time Last Medication Dose Route Stop Time Status Admin Acetaminophen 1,000 MG ONCE ONE 07/28 0930 DC 07/28 N/A 1 UNIT IV 07/28 0944 0920 Acetaminophen 0 .STK-MED ONE 07/28 0922 DC IV Atorvastatin Calcium 40 MG 1700 07/29 1700 AC PO Ceftazidime 1,000 MG Q12 07/28 2200 CAN IV Ceftazidime 0 .STK-MED ONE 07/28 1318 DC .ROUTE Ceftazidime 1,000 MG Q12 07/28 1256 AC 07/28 IV 2200 Clindamycin 600 MG IQ8 07/29 0000 AC 07/29 Dextrose/Water 50 ML IV 0807 Clindamycin 600 MG ONCE ONE 07/28 1045 DC 07/28 Dextrose/Water 50 ML IV 07/28 1114 1125 Dextrose/Sodium 1,000 ML Q20H 07/29 0830 AC 07/29 Chloride IV 0834 Heparin Sodium 0 .STK-MED ONE 07/28 1615 DC (Porcine) .ROUTE Heparin Sodium 5,000 UNIT Q8 07/28 1400 AC 07/29 (Porcine) SC 0629 Hydrocortisone 100 MG Q8 07/28 1400 AC 07/29 Sodium Succinate IV 0629 Insulin Aspart 0 Q4 07/28 2200 AC 07/29 SC 0629 Insulin Aspart 0 TIDAC 07/28 1700 CAN SC 07/29 0000 Insulin Detemir 4 UNITS BID 07/28 2200 CAN SC Insulin Human Regular 0 Q6 07/29 0600 DC SC Insulin Human Regular 0 Q6 07/28 1800 DC SC Lidocaine 0 .STK-MED ONE 07/28 1241 DC .ROUTE Magnesium Sulfate 1 GM Q2H 07/29 0830 AC 07/29 Dextrose/Water 100 ML IV 07/29 1229 0834 Morphine Sulfate 0 .STK-MED ONE 07/28 1139 DC .ROUTE Morphine Sulfate 2 MG ONCE ONE 07/28 1130 DC 07/28 IV 07/28 1131 1130 Morphine Sulfate 4 MG ONCE ONE 07/28 1130 DC IV 07/28 1131 Naloxone HCl 0.4 MG ONCE ONE 07/28 1300 DC 07/28 IV 07/28 1301 1230 Norepinephrine 4 MG Q24H / 1700 AC 07/29 Sodium Chloride 250 ML IV 0701 Norepinephrine 4 MG Q24H 07/28 1515 DC 07/28 Dextrose/Water 250 ML IV 1550 Norepinephrine 4 MG Q24H 07/28 1400 DC 07/28 Sodium Chloride 250 ML IV 1400 Omeprazole 20 MG DAILY AC 07/29 0700 AC 07/29 PO 0630 Potassium Chloride 20 MEQ Q20H 07/28 1830 DC 07/28 Dextrose/Sodium 1,000 ML IV 1835 Chloride Potassium Chloride 20 MEQ Q20H 07/28 1815 CAN IV Sodium Chloride 1,000 ML Q10H 07/28 1600 DC 07/28 IV 1705 Sodium Chloride 1,000 ML BOLUS ONE 07/28 1430 DC / IV 07/28 1529 1604 Sodium Chloride 1,000 ML BOLUS ONE 07/28 1430 DC / IV 07/28 1529 1604 Sodium Chloride 3,061.74 ML ONCE ONE 07/28 1045 DC 07/28 IV 07/28 1046 1051 Sodium Chloride 1,000 ML BOLUS ONE 07/28 0830 DC 07/28 IV 07/28 0929 0829 Vital Signs & I&O Last 24 Hrs of Vitals and I&O: Vital Signs Date Time Temp Pulse Resp B/P B/P Pulse O2 O2 Flow FiO2 Mean Ox Delivery Rate 07/29 0800 97.9 96 22 114/60 97 Room Air Room Air 07/29 0701 96 114/68 07/29 0400 94 Room Air 07/29 0000 99 Nasal 4.0L Cannula 07/29 0000 98.2 102 18 92/60 99 Nasal 4.0L Cannula 07/28 2207 100 92/57 07/28 2000 97 Nasal 4.0L Cannula 07/28 1645 90 Nasal 4.0L Cannula 07/28 1645 97.1 101 18 116/64 90 Nasal 4.0L Cannula 07/28 1607 100 17 118/66 100 Nasal 4.0L Cannula 07/28 1550 100 120/62 07/28 1543 101 126/62 07/28 1435 96 16 78/56 100 Nasal 2.0L Cannula 07/28 1420 94 16 90/54 100 Nasal 2.0L Cannula 07/28 1409 99 20 92/56 100 Room Air 07/28 1405 98 20 67/00 100 Nasal 2.0L Cannula 07/28 1400 95 68/00 07/28 1350 96 22 6800 100 Nasal 2.0L Cannula 07/28 1315 98.0 86 22 99 Nasal 2.0L Cannula 07/28 1225 77 18 62/00 97 Room Air 07/28 1207 97.8 87 20 66/40 96 Room Air Intake & Output 07/29 1600 07/29 0800 07/29 0000 Intake Total 630 2532 Output Total 250 500 Balance 380 2032 Intake, IV 630 2532 Intake, Oral 0 Number 0 Bowel Movements Output, Urine 250 500 Ox and saturation normal blood pressure improving liters that is being tapered exam of her chest shows clear lung ryan cardiac exam shows a regular S1 and S2 abdomen is soft nontender exam of her right foot shows there to be a large blister packed with edema and diminished pulses Impression/Plan Impression/Plan Impression/Plan: 87-year-old with multiple medical problems including acute kidney injury chronic kidney disease diabetes admitted with sepsis secondary to soft tissue skin infection of her foot, complicated with probable osteomyelitis. Recommendations: Follow up on recommendations of multiple consultants. Taper Levophed off with improved blood pressure. Replete magnesium. Continue current antibiotic regimen until cultures are fully identified. Obtain right upper quadrant ultrasound. She will eventually need MRI of the foot.
--- NOTE | 2017-07-29 09:22 | PN- Diabetes ---
Assessment/Plan Diabetes Assessment: The patient feels better this morning. She states she is thirsty. She continues on NovoLog coverage every 4 hours while n.p.o. She is on D5 half- normal saline +20 mEq KCl at 50 cc/h. Lab work shows that her potassium is high this morning. Chest x-ray last night was consistent with congestive heart failure. Her blood cultures are positive and antibiotics are being adjusted by . Plan: Suggest take potassium out of the patient's IV. Continue NovoLog coverage every 4 hours and D5 half-normal saline without potassium at 50 cc an hour while n.p.o. His the patient is allowed to eat this morning we can change her NovoLog coverage to before meals. We can also begin Levemir 5 units twice a day. The patient should have a repeat chest x-ray this morning. Continue IV Solu- Cortef 100 mg every 8 hours until tomorrow and then switch to prednisone 60 mg each a.m. if patient is able to take p.o.. Subjective Subjective: Feels improved Review of Systems Constitutional: Denies: chills, fever. Cardiovascular: Denies: chest pain. Respiratory: Denies: cough, short of breath. Gastrointestinal: Denies: abdominal pain. Objective Last 24 Hrs of Vital Signs/I&O Vital Signs Date Time Temp Pulse Resp B/P B/P Pulse O2 O2 Flow FiO2 Mean Ox Delivery Rate 07/29 0800 97.9 96 22 114/60 97 Room Air Room Air 07/29 0701 96 114/68 07/29 0400 94 Room Air 07/29 0000 99 Nasal 4.0L Cannula 07/29 0000 98.2 102 18 92/60 99 Nasal 4.0L Cannula 07/28 2207 100 92/57 07/29 1999 97 Nasal 4.0L Cannula 07/28 1645 90 Nasal 4.0L Cannula 07/28 1645 97.1 101 18 116/64 90 Nasal 4.0L Cannula 07/28 1607 100 17 118/66 100 Nasal 4.0L Cannula 07/28 1550 100 120/62 07/28 1543 101 126/62 07/28 1435 96 16 78/56 100 Nasal 2.0L Cannula 07/28 1420 94 16 90/54 100 Nasal 2.0L Cannula 07/28 1409 99 20 92/56 100 Room Air 07/28 1405 98 20 67/00 100 Nasal 2.0L Cannula 07/28 1400 95 68/00 07/28 1350 96 22 68/00 100 Nasal 2.0L Cannula 07/28 1315 98.0 86 22 68/00 99 Nasal 2.0L Cannula 07/28 1225 77 18 62/00 97 Room Air 07/28 1207 97.8 87 20 66/40 96 Room Air Intake & Output 07/29 1600 07/29 0800 07/29 0000 Intake Total 630 2532 Output Total 250 500 Balance 380 2032 Intake, IV 630 2532 Intake, Oral 0 Number 0 Bowel Movements Output, Urine 250 500 Vital Signs Date Time Temp Pulse Resp B/P B/P Pulse O2 O2 Flow FiO2 Mean Ox Delivery Rate 07/29 0800 97.9 96 22 114/60 97 Room Air Room Air 07/29 0701 96 114/68 07/29 0400 94 Room Air 07/29 0000 99 Nasal 4.0L Cannula 07/29 0000 98.2 102 18 92/60 99 Nasal 4.0L Cannula 07/28 2207 100 92/57 07/28 2000 97 Nasal 4.0L Cannula 07/28 1645 90 Nasal 4.0L Cannula 07/28 1645 97.1 101 18 116/64 90 Nasal 4.0L Cannula 07/28 1607 100 17 118/66 100 Nasal 4.0L Cannula 07/28 1550 100 120/62 07/28 1543 101 126/62 07/28 1435 96 16 78/56 100 Nasal 2.0L Cannula 07/28 1420 94 16 90/54 100 Nasal 2.0L Cannula 07/28 1409 99 20 92/56 100 Room Air 07/28 1405 98 20 67/00 100 Nasal 2.0L Cannula 07/28 1400 95 68/00 07/28 1350 96 22 68/00 100 Nasal 2.0L Cannula 07/28 1315 98.0 86 22 68/00 99 Nasal 2.0L Cannula 07/28 1225 77 18 62/00 97 Room Air 07/28 1207 97.8 87 20 66/40 96 Room Air Intake & Output 07/29 1600 07/29 0800 07/29 0000 Intake Total 630 2532 Output Total 250 500 Balance 380 2032 Intake, IV 630 2532 Intake, Oral 0 Number 0 Bowel Movements Output, Urine 250 500 Physical Exam General Appearance: no apparent distress Neck: normal inspection Respiratory: normal breath sounds Cardiovascular: regular rate/rhythm Abdomen: normal bowel sounds Extremities: normal inspection Current Medications: Current Medications Sig/Chuck Start time Last Medication Dose Route Stop Time Status Admin Acetaminophen 1,000 MG ONCE ONE 07/28 0930 DC 07/28 N/A 1 UNIT IV 07/28 0944 0920 Atorvastatin Calcium 40 MG 1700 07/29 1700 AC PO Ceftazidime 1,000 MG Q12 07/28 2200 CAN IV Ceftazidime 0 .STK-MED ONE 07/28 1318 DC .ROUTE Ceftazidime 1,000 MG Q12 07/28 1256 AC 07/28 IV 2200 Clindamycin 600 MG IQ8 07/29 0000 AC 07/29 Dextrose/Water 50 ML IV 0807 Clindamycin 600 MG ONCE ONE 07/28 1045 DC 07/28 Dextrose/Water 50 ML IV 07/28 1114 1125 Dextrose/Sodium 1,000 ML Q20H 07/29 0830 AC 07/29 Chloride IV 0834 Heparin Sodium 0 .STK-MED ONE 07/28 1615 DC (Porcine) .ROUTE Heparin Sodium 5,000 UNIT Q8 07/28 1400 AC 07/29 (Porcine) SC 0629 Hydrocortisone 100 MG Q8 07/28 1400 AC 07/29 Sodium Succinate IV 0629 Insulin Aspart 0 Q4 07/28 2200 AC 07/29 SC 0629 Insulin Aspart 0 TIDAC 07/28 1700 CAN SC 07/29 0000 Insulin Detemir 4 UNITS BID 07/28 2200 CAN SC Insulin Human Regular 0 Q6 07/29 0600 DC SC Insulin Human Regular 0 Q6 07/28 1800 DC SC Lidocaine 0 .STK-MED ONE 07/28 1241 DC .ROUTE Magnesium Sulfate 1 GM Q2H 07/29 0830 AC 07/29 Dextrose/Water 100 ML IV 07/29 1229 0834 Morphine Sulfate 0 .STK-MED ONE 07/28 1139 DC .ROUTE Morphine Sulfate 2 MG ONCE ONE 07/28 1130 DC 07/28 IV 07/28 1131 1130 Morphine Sulfate 4 MG ONCE ONE 07/28 1130 DC IV 07/28 1131 Naloxone HCl 0.4 MG ONCE ONE 07/28 1300 DC 07/28 IV 07/28 1301 1230 Norepinephrine 4 MG Q24H 07/28 1700 AC 07/29 Sodium Chloride 250 ML IV 0701 Norepinephrine 4 MG Q24H 07/28 1515 DC 07/28 Dextrose/Water 250 ML IV 1550 Norepinephrine 4 MG Q24H 07/28 1400 DC 07/28 Sodium Chloride 250 ML IV 1400 Omeprazole 20 MG DAILY AC 07/29 0700 AC 07/29 PO 0630 Potassium Chloride 20 MEQ Q20H 07/28 1830 DC 07/28 Dextrose/Sodium 1,000 ML IV 1835 Chloride Potassium Chloride 20 MEQ Q20H 07/28 1815 CAN IV Sodium Chloride 1,000 ML Q10H 07/28 1600 DC 07/28 IV 1705 Sodium Chloride 1,000 ML BOLUS ONE 07/28 1430 DC 07/28 IV 07/28 1529 1604 Sodium Chloride 1,000 ML BOLUS ONE 07/28 1430 DC 07/28 IV 07/28 1529 1604 Sodium Chloride 3,061.74 ML ONCE ONE 07/28 1045 DC 07/28 IV 07/28 1046 1051 Findings Pertinent Lab/Dario Results: Laboratory Tests 07/29 07/29 0500 0421 Chemistry Sodium (137 - 145 mmol/L) Cancelled 137 Potassium (3.5 - 5.1 mmol/L) Cancelled 5.2 H Chloride (98 - 107 mmol/L) Cancelled 110 H Carbon Dioxide (22 - 30 mmol/L) Cancelled 13 L Anion Gap (5 - 16) Cancelled 13 BUN (7 - 17 mg/dL) Cancelled 63 H Creatinine (0.5 - 1.0 mg/dL) Cancelled 2.7 H Estimated GFR (>60 ml/min) 18 L Glucose (65 - 99 mg/dL) Cancelled 169 H Calcium (8.4 - 10.2 mg/dL) Cancelled 7.6 L Phosphorus (2.5 - 4.5 mg/dL) Cancelled 7.7 H Magnesium (1.6 - 2.3 mg/dL) Cancelled 1.1 L Total Bilirubin (0.2 - 1.3 mg/dL) Cancelled 0.6 AST (14 - 36 U/L) Cancelled 31 ALT (9 - 52 U/L) Cancelled 38 Albumin (3.5 - 5.0 g/dL) Cancelled 2.2 L Hematology CBC w Diff Cancelled MAN DIFF ORDERED WBC (4.8 - 10.8 /CUMM) Cancelled 28.8 H RBC (4.20 - 5.40 /CUMM) Cancelled 3.26 L Hgb (12.0 - 16.0 G/DL) Cancelled 8.9 L Hct (37 - 47 %) Cancelled 26.5 L MCV (81.0 - 99.0 FL) Cancelled 81.3 MCH (27.0 - 31.0 PG) Cancelled 27.4 MCHC (33.0 - 37.0 G/DL) Cancelled 33.7 RDW (11.5 - 14.5 %) Cancelled 16.9 H Plt Count (130 - 400 /CUMM) Cancelled 326 MPV (7.4 - 10.4 FL) Cancelled 7.2 L Gran % (42.2 - 75.2 %) 95.2 H Lymphocytes % (20.5 - 51.1 %) 2.0 L Monocytes % (1.7 - 9.3 %) 2.8 Eosinophils % (0 - 5 %) 0 Basophils % (0.0 - 2.0 %) 0 Absolute Granulocytes (1.4 - 6.5 /CUMM) 27.4 H Segmented Neutrophils (42.2 - 75.2 %) 75 Band Neutrophils (0.0 - 5.0 %) 21 H Absolute Lymphocytes (1.2 - 3.4 /CUMM) 0.6 L Lymphocytes (20.5 - 51.1 %) 1 L Monocytes (1.7 - 9.3 %) 1 L Absolute Monocytes (0.10 - 0.60 /CUMM) 0.8 H Absolute Eosinophils (0.0 - 0.7 /CUMM) 0 Absolute Basophils (0.0 - 0.2 /CUMM) 0 Metamyelocytes (0.0 - 1.0 %) 2 H Platelet Estimate (ADEQUATE) ADEQUATE Poikilocytosis 1+ Ovalocytes 1+ 07/28 07/28 2100 1755 Chemistry Lactic Acid (0.7 - 2.1 mmol/L) Cancelled 2.0 Coagulation PT (9.4 - 12.5 SEC) 13.7 H INR (0.90 - 1.19) 1.25 H APTT (25 - 37 SEC) 25 Hematology CBC w Diff NO MAN DIFF REQ WBC (4.8 - 10.8 /CUMM) 21.5 H RBC (4.20 - 5.40 /CUMM) 3.21 L Hgb (12.0 - 16.0 G/DL) 8.9 L Hct (37 - 47 %) 26.0 L MCV (81.0 - 99.0 FL) 80.9 L MCH (27.0 - 31.0 PG) 27.6 MCHC (33.0 - 37.0 G/DL) 34.1 RDW (11.5 - 14.5 %) 16.9 H Plt Count (130 - 400 /CUMM) 317 MPV (7.4 - 10.4 FL) 7.1 L Gran % (42.2 - 75.2 %) 94.1 H Lymphocytes % (20.5 - 51.1 %) 2.7 L Monocytes % (1.7 - 9.3 %) 3.0 Eosinophils % (0 - 5 %) 0.2 Basophils % (0.0 - 2.0 %) 0 Absolute Granulocytes (1.4 - 6.5 /CUMM) 20.2 H Absolute Lymphocytes (1.2 - 3.4 /CUMM) 0.6 L Absolute Monocytes (0.10 - 0.60 /CUMM) 0.6 Absolute Eosinophils (0.0 - 0.7 /CUMM) 0 Absolute Basophils (0.0 - 0.2 /CUMM) 0 07/28 07/28 07/28 1633 1523 1135 Chemistry Lactic Acid (0.7 - 2.1 mmol/L) Cancelled 2.2 H Urines Urine Color (YEL,AMB,STR) YEL Urine Clarity (CLEAR) CLEAR Urine pH (5.0 - 8.0) 5.0 Ur Specific [place] (1.001 - 1.035) 1.025 Urine Protein (NEG,<30 MG/DL) 100 H Urine Ketones (NEG) NEG Urine Nitrite (NEG) NEG Urine Bilirubin (NEG) NEG Urine Urobilinogen (0.1 - 1.0 EU/dl) 0.2 Ur Leukocyte Esterase (NEG) NEG Ur Microscopic SEDIMENT EXAMINED Urine RBC (0 - 5 /HPF) RARE Urine WBC (0 - 2 /HPF) 1-3 H Urine Bacteria (NEG/NONE) MOD H Hyaline Casts (0/LPF) RARE H Urine Hemoglobin (NEG) NEG Urine Glucose (N MG/DL) NEG
--- NOTE | 2017-07-29 09:43 | PN- Infect Dx ---
Subjective Subjective: Afebrile on steroids. Her blood pressure has improved though she remains on pressors. She has had no further pain and denies any nausea or shortness of breath. Objective Last 24 Hrs of Vital Signs/I&O Vital Signs Date Time Temp Pulse Resp B/P B/P Pulse O2 O2 Flow FiO2 Mean Ox Delivery Rate 07/29 0800 97.9 96 22 114/60 97 Room Air Room Air 07/29 0701 96 114/68 07/29 0400 94 Room Air 07/29 0000 99 Nasal 4.0L Cannula 07/29 0000 98.2 102 18 92/60 99 Nasal 4.0L Cannula 07/28 2207 100 92/57 07/28 2000 97 Nasal 4.0L Cannula 07/28 1645 90 Nasal 4.0L Cannula 07/28 1645 97.1 101 18 116/64 90 Nasal 4.0L Cannula 07/28 1607 100 17 118/66 100 Nasal 4.0L Cannula 07/28 1550 100 120/62 07/28 1543 101 126/62 07/28 1435 96 16 78/56 100 Nasal 2.0L Cannula 07/28 1420 94 16 90/54 100 Nasal 2.0L Cannula 07/28 1409 99 20 92/56 100 Room Air 07/28 1405 98 20 67/00 100 Nasal 2.0L Cannula 07/28 1400 95 68/00 07/28 1350 96 22 68/00 100 Nasal 2.0L Cannula 07/28 1315 98.0 86 22 68/00 99 Nasal 2.0L Cannula 07/28 1225 77 18 62/00 97 Room Air 07/28 1207 97.8 87 20 66/40 96 Room Air Intake & Output 07/29 1600 07/29 0800 07/29 0000 Intake Total 630 2532 Output Total 250 500 Balance 380 2032 Intake, IV 630 2532 Intake, Oral 0 Number 0 Bowel Movements Output, Urine 250 500 Physical Exam Other Physical Findings: She appears comfortable in no acute distress Lungs decreased breath sounds at the right base Heart regular rhythm with no murmur Abdomen is soft, nontender with positive bowel sounds Back no CVA tenderness Extremities right lower extremity swelling, with no erythema; right foot dressing intact; left femoral triple lumen catheter in place with no inflammation at the site Sanabria catheter remains in place Results Last 24 Hours of Lab Results: Laboratory Tests 07/29 07/29 0500 0421 Chemistry Sodium (137 - 145 mmol/L) Cancelled 137 Potassium (3.5 - 5.1 mmol/L) Cancelled 5.2 H Chloride (98 - 107 mmol/L) Cancelled 110 H Carbon Dioxide (22 - 30 mmol/L) Cancelled 13 L Anion Gap (5 - 16) Cancelled 13 BUN (7 - 17 mg/dL) Cancelled 63 H Creatinine (0.5 - 1.0 mg/dL) Cancelled 2.7 H Estimated GFR (>60 ml/min) 18 L Glucose (65 - 99 mg/dL) Cancelled 169 H Calcium (8.4 - 10.2 mg/dL) Cancelled 7.6 L Phosphorus (2.5 - 4.5 mg/dL) Cancelled 7.7 H Magnesium (1.6 - 2.3 mg/dL) Cancelled 1.1 L Total Bilirubin (0.2 - 1.3 mg/dL) Cancelled 0.6 AST (14 - 36 U/L) Cancelled 31 ALT (9 - 52 U/L) Cancelled 38 Albumin (3.5 - 5.0 g/dL) Cancelled 2.2 L Hematology CBC w Diff Cancelled MAN DIFF ORDERED WBC (4.8 - 10.8 /CUMM) Cancelled 28.8 H RBC (4.20 - 5.40 /CUMM) Cancelled 3.26 L Hgb (12.0 - 16.0 G/DL) Cancelled 8.9 L Hct (37 - 47 %) Cancelled 26.5 L MCV (81.0 - 99.0 FL) Cancelled 81.3 MCH (27.0 - 31.0 PG) Cancelled 27.4 MCHC (33.0 - 37.0 G/DL) Cancelled 33.7 RDW (11.5 - 14.5 %) Cancelled 16.9 H Plt Count (130 - 400 /CUMM) Cancelled 326 MPV (7.4 - 10.4 FL) Cancelled 7.2 L Gran % (42.2 - 75.2 %) 95.2 H Lymphocytes % (20.5 - 51.1 %) 2.0 L Monocytes % (1.7 - 9.3 %) 2.8 Eosinophils % (0 - 5 %) 0 Basophils % (0.0 - 2.0 %) 0 Absolute Granulocytes (1.4 - 6.5 /CUMM) 27.4 H Segmented Neutrophils (42.2 - 75.2 %) 75 Band Neutrophils (0.0 - 5.0 %) 21 H Absolute Lymphocytes (1.2 - 3.4 /CUMM) 0.6 L Lymphocytes (20.5 - 51.1 %) 1 L Monocytes (1.7 - 9.3 %) 1 L Absolute Monocytes (0.10 - 0.60 /CUMM) 0.8 H Absolute Eosinophils (0.0 - 0.7 /CUMM) 0 Absolute Basophils (0.0 - 0.2 /CUMM) 0 Metamyelocytes (0.0 - 1.0 %) 2 H Platelet Estimate (ADEQUATE) ADEQUATE Poikilocytosis 1+ Ovalocytes 1+ 07/28 07/28 2100 1755 Chemistry Lactic Acid (0.7 - 2.1 mmol/L) Cancelled 2.0 Coagulation PT (9.4 - 12.5 SEC) 13.7 H INR (0.90 - 1.19) 1.25 H APTT (25 - 37 SEC) 25 Hematology CBC w Diff NO MAN DIFF REQ WBC (4.8 - 10.8 /CUMM) 21.5 H RBC (4.20 - 5.40 /CUMM) 3.21 L Hgb (12.0 - 16.0 G/DL) 8.9 L Hct (37 - 47 %) 26.0 L MCV (81.0 - 99.0 FL) 80.9 L MCH (27.0 - 31.0 PG) 27.6 MCHC (33.0 - 37.0 G/DL) 34.1 RDW (11.5 - 14.5 %) 16.9 H Plt Count (130 - 400 /CUMM) 317 MPV (7.4 - 10.4 FL) 7.1 L Gran % (42.2 - 75.2 %) 94.1 H Lymphocytes % (20.5 - 51.1 %) 2.7 L Monocytes % (1.7 - 9.3 %) 3.0 Eosinophils % (0 - 5 %) 0.2 Basophils % (0.0 - 2.0 %) 0 Absolute Granulocytes (1.4 - 6.5 /CUMM) 20.2 H Absolute Lymphocytes (1.2 - 3.4 /CUMM) 0.6 L Absolute Monocytes (0.10 - 0.60 /CUMM) 0.6 Absolute Eosinophils (0.0 - 0.7 /CUMM) 0 Absolute Basophils (0.0 - 0.2 /CUMM) 0 07/28 07/28 07/28 1633 1523 1135 Chemistry Lactic Acid (0.7 - 2.1 mmol/L) Cancelled 2.2 H Urines Urine Color (YEL,AMB,STR) YEL Urine Clarity (CLEAR) CLEAR Urine pH (5.0 - 8.0) 5.0 Ur Specific [place] (1.001 - 1.035) 1.025 Urine Protein (NEG,<30 MG/DL) 100 H Urine Ketones (NEG) NEG Urine Nitrite (NEG) NEG Urine Bilirubin (NEG) NEG Urine Urobilinogen (0.1 - 1.0 EU/dl) 0.2 Ur Leukocyte Esterase (NEG) NEG Ur Microscopic SEDIMENT EXAMINED Urine RBC (0 - 5 /HPF) RARE Urine WBC (0 - 2 /HPF) 1-3 H Urine Bacteria (NEG/NONE) MOD H Hyaline Casts (0/LPF) RARE H Urine Hemoglobin (NEG) NEG Urine Glucose (N MG/DL) NEG Last 24 Hours of Dario Results: Blood cultures 2 July 28 positive for gram-positive cocci in clusters Right foot culture July 28 positive for Staph aureus Urine culture July 28 negative Assessment/Plan ID Impression: Sepsis, most likely secondary to Staph aureus, with blood cultures 2 positive for gram-positive cocci in clusters and suspect the right foot as the source, given the positive culture for Staph aureus from the aspiration in the ER yesterday. Suspect this will be MRSA given her history and, as she developed interstitial nephritis on Vancomycin, will need to avoid this antibiotic. She remains afebrile on Clindamycin and Ceftazidime, but her antibiotics will need to be adjusted based on her cultures. Her white blood cell count is increased, likely, in part at least, secondary to the steroids, which she has been on for several months for the interstitial nephritis. Suggestion: 1. Podiatry follow-up for further debridement/I&D of the right foot 2. Consider need for MRI or CT of the right foot based on above 3. Repeat blood cultures 2 4. Remove left femoral triple lumen catheter once she is off pressors 5. Echocardiogram 6. Discontinue Clindamycin and Ceftazidime 7. Begin Daptomycin 600 mg IV every 24 hours (and check a baseline CPK) pending final cultures
--- NOTE | 2017-07-29 12:11 | PN- Podiatry ---
Subjective Subjective: Patient seen at bedside feeling better. Patient states that she's had no fever chills overnight. Complains of some mild right foot discomfort. Objective Vital Signs and I&Os Vital Signs Date Time Temp Pulse Resp B/P B/P Pulse O2 O2 Flow FiO2 Mean Ox Delivery Rate 07/29 0800 97.9 96 22 114/60 97 Room Air Room Air 07/29 0701 96 114/68 07/29 0400 94 Room Air 07/29 0000 99 Nasal 4.0L Cannula 07/29 0000 98.2 102 18 92/60 99 Nasal 4.0L Cannula 07/28 2207 100 92/57 07/28 2000 97 Nasal 4.0L Cannula 07/28 1645 90 Nasal 4.0L Cannula 07/28 1645 97.1 101 18 116/64 90 Nasal 4.0L Cannula 07/28 1607 100 17 118/66 100 Nasal 4.0L Cannula 07/28 1550 100 120/62 07/28 1543 101 126/62 07/28 1435 96 16 78/56 100 Nasal 2.0L Cannula 07/28 1420 94 16 90/54 100 Nasal 2.0L Cannula 07/28 1409 99 20 92/56 100 Room Air 07/28 1405 98 20 67/00 100 Nasal 2.0L Cannula 07/28 1400 95 68/00 07/28 1350 96 22 68/00 100 Nasal 2.0L Cannula 07/28 1315 98.0 86 22 68/00 99 Nasal 2.0L Cannula 07/28 1225 77 18 62/00 97 Room Air Intake & Output 07/29 1600 07/29 0800 07/29 0000 07/28 1600 07/28 0800 07/28 0000 Intake Total 630 2532 4500 Output Total 250 500 Balance 380 2032 4500 Intake, IV 630 2532 4500 Intake, Oral 0 Number 0 Bowel Movements Output, Urine 250 500 Patient 225 lb Weight Physical Exam: Evolving cellulitis identified to plantar right foot, with localized necrosis identified about bedside puncture site. Small amount of drainage identified from the wound. Improved cellulitis and edema right lower extremity. Assessment/Plan Assessment/Plan Sepsis with the likely source being her right foot. Attempting to get an MRI today. We'll put this a shot on the schedule for a I&D and bone biopsy tomorrow. Core Measures Venous Thromboembolism VTE Risk Factors Age>40 No Mechanical VTE Prophylaxis d/t Medical Contraindication No VTE Pharm Prophylaxis d/t NA PharmProphylax ordered Attending MD Review Statement Attending Statement Attending MD Statement: examined this patient
--- NOTE | 2017-07-29 12:44 | RADIOLOGY REPORT ---
EXAMINATION: XR PORTABLE CHEST CLINICAL INFORMATION: Follow-up pulmonary edema. COMPARISON: Prior chest radiographs, most recently 07/28/2017. TECHNIQUE: Portable frontal view of the chest was obtained. FINDINGS: Lung volumes are low. There is elevation of the right hemidiaphragm. No pulmonary vascular congestion or overt pulmonary edema are presently seen. There is retrocardiac airspace disease, with a limited left hemidiaphragm. The right lung field appears clear. There is no pneumothorax or definite pleural effusion. No acute osseous abnormality is seen. IMPRESSION: 1. No congestive heart failure is seen. 2. Retrocardiac airspace disease is suspected. This could be more fully evaluated with a lateral view, if clinically indicated. 3. There is stable mild to moderate elevation of the right hemidiaphragm.
--- NOTE | 2017-07-29 14:32 | ULTRASOUND REPORT ---
EXAMINATION: US ABDOMEN LIMITED CLINICAL INFORMATION: Abdominal pain, sepsis. COMPARISON: 07/28/2017 TECHNIQUE: Real-time imaging of the right upper quadrant abdominal viscera. FINDINGS: PANCREAS: The visualized portions of the head and body of the pancreas are unremarkable. LIVER: The echotexture of the liver is diffusely coarsened. No definite focal lesion within the limits of the examination. A good acoustic window is not present. There is no intrahepatic biliary dilatation. GALLBLADDER: Normal. The gallbladder is physiologically distended without evidence of stones, sludge, polyps, wall thickening or pericholecystic fluid. COMMON BILE DUCT: Normal in caliber measuring 0.4 cm in diameter. RIGHT KIDNEY: Normal. No hydronephrosis. No renal calculi or focal parenchymal lesions. The kidney measures 13.5 cm in maximum dimension. FREE FLUID: None. IMPRESSION: Essentially unremarkable right upper quadrant ultrasound. Coarsened liver echotexture.
[2017-07-29 15:30] VITALS: BP 94/60
[2017-07-30] VITALS: BP 104/68
--- NOTE | 2017-07-30 01:20 | PN- Resident CRCU ---
Subjective HPI/CRCU Issues: Overnight issues: Patient reports that she is feeling much better today. Patient states that she is no longer having any abdominal discomfort. Patient denies any pain. Patient denies fever/chills, lightheadedness, numbness, nausea/vomiting, constipation/ diarrhea, chest pain/palpitations, shortness of breath. norris in place Vitals: Within normal limits; of pressor maintaining blood pressure Life support : Femoral line : + Of pressor respiratory support: No respiratory support 24 Hour Events: Maintain blood pressure of levo since 3 AM. Patient was nothing by mouth overnight anticipating incision and drainage in the a.m. by Dr. Guillen. Blood sugar continuously nissa during nights highest of more than 300. Of all means of life support maintain blood pressure and satisfactory O2 saturation of levo presser and respiratory support; remainder of the vital signs are stable I: Total fluid balance up-to-date 4236 mL in and 1950 mL out Labs: 4 AM C BC: H&H: 7.3/21.9 from 8.9 and 26.5 yesterday; platelets down to 224 from 326, WBC down to 14.8 from 28.8 Sodium 136 potassium 4.7, chloride 110, BUN 66 and creatinine 3.2, glucose 289, phosphorus 6.8, magnesium 1.8, LFTs and alkaline phosphatase within normal limits, albumin 2 Microbiology: Blood culture 2 from July 28 grown gram-positive cocci in clusters final microbiology results reported MRSA sensitive to daptomycin and vancomycin patient is started on daptomycin yesterday; Urine and foot culture from July 28 with no growth to date. CT abdomen and pelvis without contrast- no acute abdominal or pelvic inflammatory infectious process seen, bilateral perinephric stranding without hydronephrosis or nephrolithiasis, mild diverticulosis without evidence of diverticulitis. Ultrasound Doppler of right lower extremity: No evidence of DVT Right foot x-ray showing findings suggestive of chronic osteomyelitis of the navicular/cuneiform joints and tarsal metatarsal joints.malalignment, erosive change and fragmentation of the tarsometatarsal joints with worsening lateral displacement of the second metatarsal with respect to the eroded, severely deformed middle cuneiform. The erosive changes at fourth and fifth tarsometatarsal joints have worsened compared to 04/24/2017. There is likely a component of neuropathic arthropathy in addition to infectious/inflammatory arthritis. The erosion of the fifth metatarsal head, presumably caused by infection, is unchanged. CT right lower extremity without contrast 1. Skin ulceration at the plantar side of the foot. There is edema of the plantar soft tissues of the foot. No focal abscess seen. 2. Chronic deformity of the midfoot is stable in appearance since prior study of 04/24/2017 , no specific bone destruction that would be indicative of osteomyelitis. Would be difficult though to exclude osteomyelitis given the marked deformity of the bones. Echo: Left ventricular cavity size normal. Left ventricular wall thickness mildly increased. No obvious regional wall motion abnormalities. Left ventricular ejection fraction is estimated at > 60 %. Right ventricle not well visualized, grossly normal. Unable to estimate the right ventricular systolic pressure. No obvious pericardial effusion. Fingersticks for the past 24 hours: During the night she was made n.p.o started on D5 half saline ; Her blood sugars became very high in the 300 range. She is also on prednisone 60 mg daily. Objective Vital Signs & I&O Last 8 Hrs of Vitals and I&O: Vital Signs Date Time Temp Pulse Resp B/P B/P Pulse O2 O2 Flow FiO2 Mean Ox Delivery Rate 07/30 0000 100 Room Air 07/30 0000 97.0 80 16 104/68 100 Room Air 07/29 2000 99 Room Air 07/29 1530 98.1 92 18 94/60 97 Room Air 07/29 0800 97.9 96 22 114/60 97 Room Air Room Air 07/29 0701 96 114/68 07/29 0400 94 Room Air 07/29 0000 99 Nasal 4.0L Cannula 07/29 0000 98.2 102 18 92/60 99 Nasal 4.0L Cannula 07/28 2207 100 92/57 07/28 2000 97 Nasal 4.0L Cannula 07/28 1645 90 Nasal 4.0L Cannula 07/28 1645 97.1 101 18 116/64 90 Nasal 4.0L Cannula 07/28 1607 100 17 118/66 100 Nasal 4.0L Cannula 07/28 1550 100 120/62 07/28 1543 101 126/62 07/28 1435 96 16 78/56 100 Nasal 2.0L Cannula 07/28 1420 94 16 90/54 100 Nasal 2.0L Cannula 07/28 1409 99 20 92/56 100 Room Air 07/28 1405 98 20 67/00 100 Nasal 2.0L Cannula 07/28 1400 95 68/00 07/28 1350 96 22 68/00 100 Nasal 2.0L Cannula 07/28 1315 98.0 86 22 6800 99 Nasal 2.0L Cannula 07/28 1225 77 18 62/00 97 Room Air 07/28 1207 97.8 87 20 66/40 96 Room Air 07/28 0823 96 Room Air 07/28 0821 97.3 113 17 166/67 96 Room Air Last 24 Hours I&Os 07/30 0800 07/30 0000 07/29 1600 Intake Total 1500.1 927 Output Total 450 350 Balance 1050.1 577 Intake, IV 1000.1 747 Intake, Oral 500 180 Number 0 0 Bowel Movements Output, Urine 450 350 Laboratory Tests 07/29/17 0500: Sodium Cancelled, Potassium Cancelled, Chloride Cancelled, Carbon Dioxide Cancelled, Anion Gap Cancelled, BUN Cancelled, Creatinine Cancelled, Glucose Cancelled, Calcium Cancelled, Phosphorus Cancelled, Magnesium Cancelled, Total Bilirubin Cancelled, AST Cancelled, ALT Cancelled, Albumin Cancelled, CBC w Diff Cancelled, WBC Cancelled, RBC Cancelled, Hgb Cancelled, Hct Cancelled, MCV Cancelled, MCH Cancelled, MCHC Cancelled, RDW Cancelled, Plt Count Cancelled, MPV Cancelled 07/29/17 0421: Anion Gap 13, Estimated GFR 18 L, Glucose 169 H, Calcium 7.6 L, Phosphorus 7.7 H, Magnesium 1.1 L, Total Bilirubin 0.6, AST 31, ALT 38, Creatine Kinase 156 H, Albumin 2.2 L, CBC w Diff MAN DIFF ORDERED, RBC 3.26 L, MCV 81.3, MCH 27.4, MCHC 33.7, RDW 16.9 H, MPV 7.2 L, Gran % 95.2 H, Lymphocytes % 2.0 L, Monocytes % 2.8, Eosinophils % 0, Basophils % 0, Absolute Granulocytes 27.4 H, Segmented Neutrophils 75, Band Neutrophils 21 H, Absolute Lymphocytes 0.6 L, Lymphocytes 1 L, Monocytes 1 L, Absolute Monocytes 0.8 H, Absolute Eosinophils 0, Absolute Basophils 0, Metamyelocytes 2 H, Platelet Estimate ADEQUATE, Poikilocytosis 1+, Ovalocytes 1+ Microbiology Date/Time Procedure - Status Source Growth 07/29 1207 Blood Culture - RECD BLOOD 07/28 1745 Surveillance Culture - RECD GI 07/28 1740 Surveillance Culture - RECD UPPER RESP 07/28 1633 Urine Culture - RES URINE ROUT 07/28 1240 Culture & Sensitivity - RES EXTREMITIE STAPH AUREUS 07/28 1240 Gram Stain - RES EXTREMITIE Orders Procedure Date/time Status Nothing by Mouth 07/30 B Active ICU LAB BUNDLE 07/30 0500 Active CBC WITHOUT DIFFERENTIAL 07/30 0500 Active Consistent Carbohydrate 2 07/29 D Complete Nothing by Mouth 07/29 B Complete BLOOD CULTURE 07/29 1102 Active Norris, Insertion/Removal/Asses 07/29 0831 Active CREATINE PHOSPHOKINASE 07/29 0421 Complete ICU LAB BUNDLE 07/29 0400 Complete CBC WITHOUT DIFFERENTIAL 07/29 0400 Complete Lab Add-on Test 07/29 UNK Active Heart Healthy Diet 07/28 L Complete Nothing by Mouth 07/28 D Complete LACTIC ACID 07/28 1823 Complete Wound Care/Dressing 07/28 1709 Active Weight 07/28 1709 Complete VTE Mechanical Prophylaxis 07/28 1709 Active Vital Signs 07/28 1709 Active Turn and Reposition 07/28 1709 Active Drains/Tubes 07/28 1709 Complete Teach/Educate 07/28 1709 Active Skin Integrity Protocol 07/28 1709 Active Skin/Pressure Ulcer Assess (Sk 07/28 1709 Active Precautions 07/28 1709 Active Pain Treatment and Response 07/28 1709 Active Nutritional Intake, Monitor 07/28 1709 Active Isolation 07/28 1709 Active CIWA 07/28 1709 Complete Patient Care Conference 07/28 1709 Active Activity/Ambulation 07/28 1709 Active CULTURE,URINE 07/28 1633 Active Add-on Test (ER Only) 07/28 1619 Active Norris, Insertion/Removal/Asses 07/28 1602 Complete VRE ACTIVE SURVIELLANCE 07/28 1538 Active ACTIVE SURVEILLANCE NARES 07/28 1538 Active PARTIAL THROMBOPLASTIN TIME 07/28 1538 Complete PROTHROMBIN TIME 07/28 1538 Complete CBC WITHOUT DIFFERENTIAL 07/28 1418 Complete [place] Coma Scale 07/28 1413 Complete EXTREMETIES CULTURE 07/28 1255 Active Pathway - chart 07/28 1158 Active House Staff 07/28 1158 Active Code Status 07/28 1158 Active LACTIC ACID 07/28 1117 Complete Patient Data 07/28 1047 Active Admit to inpatient 07/28 1036 Active Vital Signs 07/28 1036 Complete Code Status 07/28 1036 Complete Intake & Output 07/28 0820 Active PHOSPHORUS 07/28 0818 Complete MAGNESIUM 07/28 0818 Complete CORTISOL AM 07/28 0818 Complete BLOOD CULTURE 07/28 0817 Active URINALYSIS 07/28 0817 Complete TROPONIN LEVEL 07/28 0817 Complete LIPASE 07/28 0817 Complete LACTIC ACID 07/28 0817 Complete COMPREHENSIVE METABOLIC PANEL 07/28 0817 Complete CBC WITHOUT DIFFERENTIAL 07/28 0817 Complete EKG 07/28 0817 Active OXYGEN SETUP (GEN) 07/28 UNK Complete Change service to 07/28 UNK Active Lab Add-on Test 07/28 UNK Active VTE Mechanical Prophylaxis 07/28 UNK Complete FingerStick- Glucose 07/28 UNK Active Last 24 Hours of Dario Results: Blood cultures 2 July 28 positive for gram-positive cocci in clusters Right foot culture July 28 positive for Staph aureus Urine culture July 28 negative Exam General Appearance: no apparent distress, alert, awake, comfortable, obese Head: atraumatic, normal appearance Ears, Nose, Throat: normal pharynx Neck: supple, full range of motion, JVD Respiratory: normal breath sounds Cardiovascular: regular rate/rhythm Gastrointestinal: normal bowel sounds, soft, non-tender Extremities: BILATERAL PITTING EDEMA OF LOWER EXTREMITIES, HAD AN int ON RIGHT FOOT sIDE OF THE INCISION AND DRAINAGE IS COVERED IN DRESSING Cranial Nerves: GROSSLY NORMAL Current Medications: Current Medications Sig/Chuck Start time Last Medication Dose Route Stop Time Status Admin Atorvastatin Calcium 40 MG 1700 07/29 1700 AC 07/29 PO 1645 Ceftazidime 1,000 MG Q12 07/28 1256 DC 07/29 IV 0944 Clindamycin 600 MG IQ8 07/29 0000 DC 07/29 Dextrose/Water 50 ML IV 0807 Daptomycin 600 MG Q24H 07/29 1300 AC 07/29 Sodium Chloride 50 ML IV 1240 Daptomycin 600 MG Q24H 07/29 1200 DC Sodium Chloride 50 ML IV Dextrose/Sodium 1,000 ML Q13H 07/29 2030 DC 07/29 Chloride IV 2308 Dextrose/Sodium 1,000 ML Q10H 07/29 1245 CAN Chloride IV Dextrose/Sodium 1,000 ML Q20H 07/29 0830 DC 07/29 Chloride IV 0834 Heparin Sodium 5,000 UNIT Q8 07/28 1400 AC 03/17 (Porcine) SC 2136 Hydrocortisone 100 MG Q8 07/28 1400 DC 07/29 Sodium Succinate IV 07/30 0000 2136 Insulin Aspart 8 UNITS ONCE ONE 07/30 1030 DC 07/30 SC 07/30 1031 1025 Insulin Aspart 0 AT BEDTIME 07/29 2200 CAN SC Insulin Aspart 0 Q4 07/29 2200 AC 07/30 SC 0556 Insulin Aspart 0 TIDAC 07/29 1700 DC 07/29 SC 1646 Insulin Aspart 0 Q4 07/28 2200 DC 07/29 SC 0944 Insulin Detemir 5 UNITS BID 07/29 1400 AC 07/30 SC 1024 Insulin Detemir 5 UNITS BID 07/29 1100 DC SC Magnesium Sulfate 1 GM Q2H 07/29 0830 DC 07/29 Dextrose/Water 100 ML IV 07/29 1229 0944 Non-Formulary 0 SEE ADMIN CRITERIA 07/29 1115 DC Medication ANY Norepinephrine 4 MG Q24H 07/28 1700 DC 07/29 Sodium Chloride 250 ML IV 0701 Omeprazole 20 MG DAILY AC 07/29 0700 AC 07/30 PO 1025 Prednisone 60 MG DAILY 07/30 1000 AC 07/30 PO 1025 Sodium Chloride 1,000 ML Q13H 07/30 1000 AC 07/30 IV 1024 Sodium Chloride 1,000 ML Q13H 07/29 2030 CAN IV Sodium Chloride 1,000 ML Q8H 07/29 1245 DC 07/29 IV 1247 Results Cultures: Date: 07/28/17 Isolate: mrsa FROM RIGHT FOOT CULTURE Impression/Plan Impression/Problem List Impression: #Respiratory: Of respiratory support saturating fine in room air # Septic shock likely secondary to right foot osteomyelitis preliminary report of initial joint ( right foot) aspirate indicates GPC in clusters; most possible MRSA ( had a Hx of MRSA infection). unfortunately, developed AIN on vanco.D/C ceftaz and clinda. - continue daptomycin 600mg q24 hr #d2 - on Levofed drip; titrate with MAP target of >=65 -If patient maintain blood pressure cell evening of pressor central line needs to be DC'd - continue IV fluids and strict I/Os control # Right foot wound, to rule out acute osteomyelitis that is post incision and drainage by Dr. Guillen at 07/30/2017 cultures from 07/28/2017 grew MRSA sensitive to daptomycin. - Continue daptomycin 600 mg every 24 -Follow deep bone biopsy cultures from the OR which was obtained on 07/30/2017 # Drop in H&H: Acute anemia blood loss versus delusional anemia status C BC postop showed increase in H&H from 7.32 7.7 patient does not have acute coronary syndrome no indication for transfusion cutoff based on guidelines 7 mg/dL. -Type and cross match was done - Repeat CBCs at 8 PM transfuse if the levels are below 7 # Acute on chronic kidney disease, multifactorial -Started on taper prednisone 60 mg by mouth daily -Worsening creatinine increased from 2.7-3.2 possibility of Alba (ATN secondary to low blood pressure) or worsening of her interstitial nephritis. -For now continue gentle IV hydration normal saline 75 mL per hour # mellitus, uncontrolled: Uncontrolled blood sugar more than 300 and a critically sick ( multiple morbidities include acute kidney injury on advanced CKG, septic shock, adrenal insufficiency) - Current recommendation is to restrict blood sugar control for critically sick patient with 100 4280 mg/dL with insulin drip test proven to have mortality benefits -I discussed my concerns with attending door cutter; for now we continue with previous regimen (combination of long-acting (basic needs) and sliding scale pre-meals) -Anticipation if blood sugars were not controlled properly please contact door cutter regarding starting the patient on IV insulin drip # Possible iatrogenic adrenal insufficiency -Taper down to by mouth prednisone 60 mg by mouth daily Housekeeping orders DVT prophylaxis heparin 5000 units subcutaneous every 8 hours Full code Problem List: 1. ALBA (acute kidney injury) 2. Osteomyelitis of right foot 3. Cellulitis Pain Ratin Tomorrow's Labs & Rationales: CDC and chemistry panel Sepsis Acute kidney injury on top of chronic kidney injury and electrolyte derangements Plan DVT/Prophylaxis: mechanical, pharmacological
[2017-07-30 05:36] LABS: ABSOLUTE BASOPHIL COUNT 0 /CUMM (0.0-0.2); ABSOLUTE EOSINOPHIL COUNT 0 /CUMM (0.0-0.7); ABSOLUTE GRANULOCYTE CT 14.3 /CUMM (1.4-6.5); ABSOLUTE LYMPH COUNT 0.3 /CUMM (1.2-3.4); ABSOLUTE MONOCYTE COUNT 0.2 /CUMM (0.10-0.60); BASOPHIL % 0 % (0.0-2.0); EOSINOPHIL % 0 % (0-5); GRANULOCYTE % 96.7 % (42.2-75.2); HEMATOCRIT 21.9 % (37-47); MEAN CORPUSCULAR HGB 27.2 PG (27.0-31.0); MEAN CORPUSCULAR HGB CONC 33.4 G/DL (33.0-37.0); MEAN CORPUSCULAR VOLUME 81.3 FL (81.0-99.0); MEAN PLATELET VOLUME 7.4 FL (7.4-10.4); PLATELET COUNT 224 /CUMM (130-400); RBC DISTRIBUTION WIDTH 16.8 % (11.5-14.5); RED BLOOD CELL CT 2.69 /CUMM (4.20-5.40); WHITE BLOOD CELL COUNT 14.8 /CUMM (4.8-10.8)
[2017-07-30 08:00] VITALS: BP 110/70
--- NOTE | 2017-07-30 08:57 | Operative Report ---
Operative/Inv Procedure Report Surgery Date: 07/30/17 Name of Procedure: 1 open incision and drainage deep to the deep fascia with exposure of the flexor tendon and tendon sheath multiple sites right foot 2 bone biopsy right foot 3 intraoperative administration of ankle block anesthesia 4 excisional debridement Pre-Operative Diagnosis: 1 open necrotic wound with plantar space abscess right foot 2 presumed osteomyelitis right foot 3 neuropathic arthritis right foot 4 diabetic peripheral neuropathy Post-Operative Diagnosis: The same Estimated Blood Loss: less than 50ml Surgeon/Escrow Processor: BERNY DIA DPM Anesthesia: moderate sedation, block Operative/Procedure Note Note: After obtaining informed consent the patient was brought to the operating room and placed on the operating table in the supine position. The patient isn't securely fastened to the operating table utilizing safety belt. After measures of IV sedation, 10 mL of 0.5% Marcaine plain was infiltrated about the patient's right ankle. The right foot and ankle then scrubbed prepped and draped in usual aseptic manner. Digitorectal plantar aspect the left foot, where a full- thickness probing was identified. A 15 blade visualized sharply revised skin margins. Dissection was then carried down deep to the fashion with exposure of the flexor tendon tension multiple sites, both proximally and distally. All necrotic, nonviable infected tissue sharply evacuated wound bed. Purulence was noted from the midfoot joints bone was harvested for both microbiologic and pathologic inspection. The open wound was then irrigated with 3 L of normal sterile saline infusion 50,000 units of bacitracin. Following this, the foot was redraped and surgeon's top was changed clean gloves. Any bleeding vessels identified were cauterized or ligated as encountered. Nipple was then packed with half-inch iodoform followed by 4 x 4's and ABDs pad Kerlix and Cobcheryl. The patient is noted tolerate both procedure and anesthesia well and the patient was transported from the operating room to recovery with vital signs stable.
--- NOTE | 2017-07-30 10:14 | PN- Diabetes ---
Assessment/Plan Diabetes Assessment: Patient went to the operating room today for debridement of her right foot. She is back in her room now. She states she is thirsty but not that hungry. During the night she was made n.p.o. and glucose was placed back in her IV. Her blood sugars became very high in the 300 range. She is also on Solu-Cortef 100 mg IV every 8 hours. The patient has evidence of acute kidney injury. Her creatinine has gone up to 3.2. She is making urine. The patient's hematocrit has dropped to 21.6. Plan: Suggest today resume Levemir 5 units twice a day. Also we will place the patient on sliding scale NovoLog before meals. The patient will be on prednisone 60 mg as a single dose in the morning. Therefore she requires more pre-meal insulin. Sliding scale NovoLog before meals should be 80-150 give 5 units NovoLog, 151- 200 give 6 units NovoLog, 201-250 give 7 units NovoLog, 251-300 give 8 units NovoLog, 301-350 give 9 units NovoLog, 351-400 give 10 units NovoLog. A separate bedtime sliding scale should be written. Bedtime sliding scale NovoLog should be less than 250 give no insulin, 251-300 give 2 units NovoLog, 301-350 give 3 units NovoLog, 351-400 give 4 units NovoLog. We should take the glucose out of the IV and place her on normal saline at 75 cc /h. Repeat her CBCs consider transfusion as her hematocrit has fallen to 21.6. Apparently there was a lot of bleeding into the foot but other sources of bleeding need to be sought. Subjective Subjective: Feels okay Review of Systems Constitutional: Denies: chills, fever. Cardiovascular: Denies: no symptoms. Respiratory: Reports: no symptoms. Gastrointestinal: Denies: abdominal pain. Objective Last 24 Hrs of Vital Signs/I&O Vital Signs Date Time Temp Pulse Resp B/P B/P Pulse O2 O2 Flow FiO2 Mean Ox Delivery Rate 07/30 0800 97.3 90 18 110/70 96 Room Air 07/30 0400 98 Room Air 07/30 0000 100 Room Air 07/30 0000 97.0 80 16 104/68 100 Room Air 07/29 2000 99 Room Air 07/29 1530 98.1 92 18 94/60 97 Room Air Intake & Output 07/30 1600 07/30 0800 07/30 0000 Intake Total 647.5 1500.1 Output Total 600 450 Balance 47.5 1050.1 Intake, IV 647.5 1000.1 Intake, Oral 0 500 Number 0 0 Bowel Movements Output, Urine 600 450
[2017-07-30 10:34] LABS: ABSOLUTE BASOPHIL COUNT 0 /CUMM (0.0-0.2); ABSOLUTE EOSINOPHIL COUNT 0 /CUMM (0.0-0.7); ABSOLUTE GRANULOCYTE CT 13.6 /CUMM (1.4-6.5); ABSOLUTE LYMPH COUNT 0.3 /CUMM (1.2-3.4); ABSOLUTE MONOCYTE COUNT 0 /CUMM (0.10-0.60); BASOPHIL % 0 % (0.0-2.0); EOSINOPHIL % 0 % (0-5); GRANULOCYTE % 97.7 % (42.2-75.2); MEAN CORPUSCULAR HGB CONC 33.5 G/DL (33.0-37.0); MEAN CORPUSCULAR VOLUME 80.4 FL (81.0-99.0); MEAN PLATELET VOLUME 7.3 FL (7.4-10.4); PLATELET COUNT 231 /CUMM (130-400); RBC DISTRIBUTION WIDTH 17.1 % (11.5-14.5); RED BLOOD CELL CT 2.86 /CUMM (4.20-5.40); WHITE BLOOD CELL COUNT 13.9 /CUMM (4.8-10.8)
[2017-07-30 16:00] VITALS: BP 108/0
--- NOTE | 2017-07-30 18:05 | Event Note ---
Event Note Event Note: at about 530 pm I checked a 1 h post prandial blood sugar on Mrs. Canales. Even after modifications to her SS in the am, her post prandial BS was 245 and pre meal was 225. assessment Patient clearly undertreated in terms of insulin dose ( particularly at meal time). Plan - increase pre-meal SS after speaking to Dr. Vogel. The changes are: Blood sugar 80-150 >>>>>>>>8 units 151-200>>>>>>> 10 U 201-250>>>>>>>>12 U 251-300>>>>>>>>13U 301-350>>>>>>>>14U 351-400>>>>>>>>15U and call
[2017-07-30 21:36] LABS: ABSOLUTE BASOPHIL COUNT 0 /CUMM (0.0-0.2); ABSOLUTE EOSINOPHIL COUNT 0 /CUMM (0.0-0.7); ABSOLUTE GRANULOCYTE CT 11.9 /CUMM (1.4-6.5); ABSOLUTE LYMPH COUNT 0.2 /CUMM (1.2-3.4); ABSOLUTE MONOCYTE COUNT 0.1 /CUMM (0.10-0.60); BASOPHIL % 0 % (0.0-2.0); EOSINOPHIL % 0 % (0-5); HEMATOCRIT 22.3 % (37-47); MEAN CORPUSCULAR HGB 27.2 PG (27.0-31.0); MEAN CORPUSCULAR HGB CONC 33.8 G/DL (33.0-37.0); MEAN CORPUSCULAR VOLUME 80.5 FL (81.0-99.0); MEAN PLATELET VOLUME 7.5 FL (7.4-10.4); PLATELET COUNT 223 /CUMM (130-400); RBC DISTRIBUTION WIDTH 16.8 % (11.5-14.5); RED BLOOD CELL CT 2.78 /CUMM (4.20-5.40); WHITE BLOOD CELL COUNT 12.2 /CUMM (4.8-10.8)
--- NOTE | 2017-07-30 22:07 | Event Note ---
Event Note Event Note: Second set of Blood Cultures Positive for gram-positive cocci in chains. Patient is already on daptomycin. F/U final cultures and Sensitivites.
[2017-07-30 23:55] VITALS: BP 138/90
[2017-07-31 04:42] LABS: ABSOLUTE BASOPHIL COUNT 0 /CUMM (0.0-0.2); ABSOLUTE EOSINOPHIL COUNT 0 /CUMM (0.0-0.7); BASOPHIL % 0 % (0.0-2.0); EOSINOPHIL % 0 % (0-5); HEMATOCRIT 21.6 % (37-47); MEAN CORPUSCULAR HGB 27.1 PG (27.0-31.0)
[2017-07-31 04:48] LABS: ABSOLUTE GRANULOCYTE CT 11.9 /CUMM (1.4-6.5); ABSOLUTE LYMPH COUNT 0.2 /CUMM (1.2-3.4); ABSOLUTE MONOCYTE COUNT 0 /CUMM (0.10-0.60); GRANULOCYTE % 97.9 % (42.2-75.2); MEAN CORPUSCULAR HGB CONC 33.6 G/DL (33.0-37.0); MEAN CORPUSCULAR VOLUME 80.6 FL (81.0-99.0); MEAN PLATELET VOLUME 7.7 FL (7.4-10.4); PLATELET COUNT 217 /CUMM (130-400); RED BLOOD CELL CT 2.69 /CUMM (4.20-5.40); WHITE BLOOD CELL COUNT 12.2 /CUMM (4.8-10.8)
--- NOTE | 2017-07-31 07:23 | PN- Diabetes ---
Assessment/Plan Diabetes Assessment: The patient feels improved. She is eating okay. Her blood sugar in the lab at 3:47 AM was 243. Yesterday her sugars were running high. The patient's serum creatinine is down to 2.7. She is on normal saline at 75 cc /h. Plan: Suggest increase Levemir to 6 units twice a day. We need also to increase her sliding scale NovoLog before meals. Sliding scale NovoLog before meals should be 80-150 give 8 units NovoLog, 151-200 give 10 units NovoLog, 201-250 give 12 units NovoLog, 251-300 give 14 units NovoLog, 301 -350 give 16 units NovoLog, 351-400 give 18 units NovoLog. Bedtime sliding scale NovoLog should stay the same. Subjective Subjective: Feels improved Review of Systems Constitutional: Denies: chills, fever. Cardiovascular: Denies: chest pain. Gastrointestinal: Denies: nausea, vomiting. Genitourinary: Denies: dysuria. Objective Last 24 Hrs of Vital Signs/I&O Vital Signs Date Time Temp Pulse Resp B/P B/P Pulse O2 O2 Flow FiO2 Mean Ox Delivery Rate 07/31 0400 98 Room Air 07/31 0000 97 Room Air 07/30 2355 97.6 92 18 138/90 97 Room Air 07/30 2000 97 Room Air 07/30 1600 97.8 96 19 108/0 96 Room Air 07/30 0800 97.3 90 18 110/70 96 Room Air Intake & Output 07/31 0800 07/31 0000 07/30 1600 Intake Total 1050 907 680 Output Total 750 980 600 Balance 300 -73 80 Intake, IV 570 647 350 Intake, Oral 480 260 330 Number 0 1 Bowel Movements Output, Urine 750 980 600 Vital Signs Date Time Temp Pulse Resp B/P B/P Pulse O2 O2 Flow FiO2 Mean Ox Delivery Rate 07/31 0400 98 Room Air 07/31 0000 97 Room Air 07/30 2355 97.6 92 18 138/90 97 Room Air 07/31 1999 97 Room Air 07/30 1600 97.8 96 19 108/0 96 Room Air 07/30 0800 97.3 90 18 110/70 96 Room Air Intake & Output 07/31 0800 07/31 0000 07/30 1600 Intake Total 1050 907 680 Output Total 750 980 600 Balance 300 -73 80 Intake, IV 570 647 350 Intake, Oral 480 260 330 Number 0 1 Bowel Movements Output, Urine 750 980 600 Physical Exam General Appearance: alert, awake, comfortable Head: normal appearance Neck: normal inspection Respiratory: normal breath sounds Cardiovascular: regular rate/rhythm Current Medications: Current Medications Sig/Chuck Start time Last Medication Dose Route Stop Time Status Admin Atorvastatin Calcium 40 MG 1700 07/29 1700 AC 07/30 PO 1643 Daptomycin 600 MG Q24H 07/29 1300 AC 07/30 Sodium Chloride 50 ML IV 1352 Dextrose/Sodium 1,000 ML Q13H 07/29 2030 DC 07/29 Chloride IV 2308 Fentanyl Citrate 100 MCG .STK-MED ONE 07/30 0749 DC IM 07/30 0750 Heparin Sodium 5,000 UNIT Q8 07/28 1400 AC 07/30 (Porcine) SC 1352 Insulin Aspart 0 AT BEDTIME 07/30 2200 AC 07/30 SC 2120 Insulin Aspart 0 TIDAC 07/30 1200 AC 07/30 SC 1643 Insulin Aspart 8 UNITS ONCE ONE 07/30 1030 DC 07/30 SC 07/30 1031 1025 Insulin Aspart 0 Q4 07/29 2200 DC 07/30 SC 0556 Insulin Detemir 5 UNITS BID 07/29 1400 AC 07/30 SC 2119 Norepinephrine 4 MG Q24H 07/28 1700 DC 07/29 Sodium Chloride 250 ML IV 0701 Omeprazole 20 MG DAILY AC 07/29 0700 AC 07/31 PO 0601 Prednisone 60 MG DAILY 07/30 1000 AC 07/30 PO 1025 Sodium Chloride 1,000 ML Q13H 07/30 1000 AC 07/30 IV 2326 Findings Pertinent Lab/Dario Results: Laboratory Tests 07/31 Chemistry Sodium (137 - 145 mmol/L) 141 Potassium (3.5 - 5.1 mmol/L) 4.7 Chloride (98 - 107 mmol/L) 116 H Carbon Dioxide (22 - 30 mmol/L) 14 L Anion Gap (5 - 16) 12 BUN (7 - 17 mg/dL) 67 H Creatinine (0.5 - 1.0 mg/dL) 2.7 H Estimated GFR (>60 ml/min) 18 L Glucose (65 - 99 mg/dL) 243 H Calcium (8.4 - 10.2 mg/dL) 8.2 L Phosphorus (2.5 - 4.5 mg/dL) 5.5 H Magnesium (1.6 - 2.3 mg/dL) 1.9 Total Bilirubin (0.2 - 1.3 mg/dL) 0.4 AST (14 - 36 U/L) 25 ALT (9 - 52 U/L) 34 Albumin (3.5 - 5.0 g/dL) 2.1 L Hematology CBC w Diff MAN DIFF ORDERED MAN DIFF ORDERED WBC (4.8 - 10.8 /CUMM) 12.2 H 12.2 H RBC (4.20 - 5.40 /CUMM) 2.69 L 2.78 L Hgb (12.0 - 16.0 G/DL) 7.3 *L 7.5 L Hct (37 - 47 %) 21.6 L 22.3 L MCV (81.0 - 99.0 FL) 80.6 L 80.5 L MCH (27.0 - 31.0 PG) 27.1 27.2 MCHC (33.0 - 37.0 G/DL) 33.6 33.8 RDW (11.5 - 14.5 %) 17.0 H 16.8 H Plt Count (130 - 400 /CUMM) 217 223 MPV (7.4 - 10.4 FL) 7.7 7.5 Gran % (42.2 - 75.2 %) 97.9 H 98.0 H Lymphocytes % (20.5 - 51.1 %) 2.0 L 1.5 L Monocytes % (1.7 - 9.3 %) 0.1 L 0.5 L Eosinophils % (0 - 5 %) 0 0 Basophils % (0.0 - 2.0 %) 0 0 Absolute Granulocytes (1.4 - 6.5 /CUMM) 11.9 H 11.9 H Segmented Neutrophils (42.2 - 75.2 %) 92 H 80 H Band Neutrophils (0.0 - 5.0 %) 7 H 13 H Absolute Lymphocytes (1.2 - 3.4 /CUMM) 0.2 L 0.2 L Lymphocytes (20.5 - 51.1 %) 6 L Monocytes (1.7 - 9.3 %) 1 L 1 L Absolute Monocytes (0.10 - 0.60 /CUMM) 0 L 0.1 Absolute Eosinophils (0.0 - 0.7 /CUMM) 0 0 Absolute Basophils (0.0 - 0.2 /CUMM) 0 0 Platelet Estimate (ADEQUATE) ADEQUATE ADEQUATE Poikilocytosis 1+ Anisocytosis 1+ 1+ Microcytic Cells 1+ Ovalocytes FEW Dejah Cells 1+ 1+ Elliptocytes FEW Other Body Source Fld Total RBCs Counted (%) 100 07/30 1009 Hematology CBC w Diff MAN DIFF ORDERED WBC (4.8 - 10.8 /CUMM) 13.9 H RBC (4.20 - 5.40 /CUMM) 2.86 L Hgb (12.0 - 16.0 G/DL) 7.7 L Hct (37 - 47 %) 23.0 L MCV (81.0 - 99.0 FL) 80.4 L MCH (27.0 - 31.0 PG) 27.0 MCHC (33.0 - 37.0 G/DL) 33.5 RDW (11.5 - 14.5 %) 17.1 H Plt Count (130 - 400 /CUMM) 231 MPV (7.4 - 10.4 FL) 7.3 L Gran % (42.2 - 75.2 %) 97.7 H Lymphocytes % (20.5 - 51.1 %) 2.1 L Monocytes % (1.7 - 9.3 %) 0.2 L Eosinophils % (0 - 5 %) 0 Basophils % (0.0 - 2.0 %) 0 Absolute Granulocytes (1.4 - 6.5 /CUMM) 13.6 H Segmented Neutrophils (42.2 - 75.2 %) 88 H Band Neutrophils (0.0 - 5.0 %) 8 H Absolute Lymphocytes (1.2 - 3.4 /CUMM) 0.3 L Lymphocytes (20.5 - 51.1 %) 3 L Monocytes (1.7 - 9.3 %) 1 L Absolute Monocytes (0.10 - 0.60 /CUMM) 0 L Absolute Eosinophils (0.0 - 0.7 /CUMM) 0 Absolute Basophils (0.0 - 0.2 /CUMM) 0 Poikilocytosis 2+ Anisocytosis 1+
--- NOTE | 2017-07-31 07:37 | PN- Resident CRCU ---
Ky RASMUSSEN,Sid 07/31/17 0737: Subjective HPI/CRCU Issues: Overnight events: Patient had no acute events overnight. Patient is status post I&D day 1. Patient was seen and examined today. Patient denies any foot pain, denies fevers/chills, chest pain, shortness breath, diarrhea/constipation, dizziness/ lightheadedness although patient states that she has not been ambulating. Patient reports some soreness at the site of left femoral line which was removed yesterday. Patient reports that she had significant bleeding at the site. I have removed the gauze this morning there was no active bleeding at this time. Vitals: Heart Rate 92- 102 sinus rhythm to sinus tachycardia, respiration rate 14-26, blood pressure 108 to 164/62 to 86, saturating 95 to 90 Total input: 6873, output:4280 Labs: WBC 12.2 with 97.9% granulocytes and 7 bands, H&H 7.3 and 21.6, MCV 80.6, platelet count 217 Sodium 141, potassium 4.7, chloride 116, bicarbonate 14, anion gap 12, BUN 67, creatinine 2.7 (down from 3.2), calcium 8.2, albumin 2.1, phosphorus 5.5, LFTs within normal limits Microbiology: Blood cultures from growing methicillin-resistant staph aureus Foot culture from 07/28 growing methicillin-resistant staph aureus sensitive to tetracycline, Bactrim, vancomycin Blood cultures from 07/30 growing gram-positive cocci in clusters in second culture bottle Objective Vital Signs & I&O Last 8 Hrs of Vitals and I&O: Vital Signs Date Time Temp Pulse Resp B/P B/P Pulse O2 O2 Flow FiO2 Mean Ox Delivery Rate 07/31 0400 98 Room Air 07/31 0000 97 Room Air 07/30 2355 97.6 92 18 138/90 97 Room Air 07/30 2000 97 Room Air 07/30 1600 97.8 96 19 108/0 96 Room Air Intake & Output 07/31 1600 07/31 0800 07/31 0000 Intake Total 1050 907 Output Total 750 980 Balance 300 -73 Intake, IV 570 647 Intake, Oral 480 260 Number 0 Bowel Movements Output, Urine 750 980 Exam General Appearance: well developed/nourished, no apparent distress, alert, awake , comfortable Head: atraumatic, normal appearance Ears, Nose, Throat: hearing grossly normal Respiratory: normal breath sounds, chest non-tender, no respiratory distress Cardiovascular: regular rate/rhythm Gastrointestinal: normal bowel sounds, soft, non-tender Extremities: no edema, right foot wrapped in surgical dressing, decreased sensation in right foot, diminished pulses bilaterally Other Physical Findings: left groin - femoral line removed yesterday, area has a small amount of dry blood, no active bleeding or hematoma appreciated Current Medications: Current Medications Sig/Chuck Start time Last Medication Dose Route Stop Time Status Admin Atorvastatin Calcium 40 MG 1700 07/29 1700 AC 07/30 PO 1643 Daptomycin 600 MG Q24H 07/29 1300 AC 07/30 Sodium Chloride 50 ML IV 1352 Heparin Sodium 5,000 UNIT Q8 07/28 1400 AC 07/30 (Porcine) SC 1352 Insulin Aspart 0 AT BEDTIME 07/30 2200 AC 07/30 SC 2120 Insulin Aspart 0 TIDAC 07/30 1200 AC 07/31 SC 1156 Insulin Detemir 6 UNITS BID 07/31 1000 AC 07/31 SC 0854 Insulin Detemir 5 UNITS BID 07/29 1400 DC 07/30 SC 2119 Omeprazole 20 MG DAILY AC 07/29 0700 AC 07/31 PO 0601 Prednisone 60 MG DAILY 07/30 1000 AC 07/31 PO 0854 Sodium Chloride 1,000 ML Q13H 07/30 1000 AC 07/31 IV 1155 Impression/Plan Impression/Problem List Impression: 57-year-old female with past medical history of interstitial nephritis on steroids, peripheral vascular disease, diabetes with nephropathy, hyperlipidemia , 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 PE: Significant for hypotension, right foot injury which was incised in the ED, and well dressed. Rest of the exam was not significant.Her lab values are significant for leukocytosis 14.9 with bandemia 16, anemia H&H 8.8/26.1, platelet 276, sodium/potassium 134/3.6, urine/creatinine 66/2.5, glucose 88, initial lactic as 2.3 later 2.2, normal LFTs, albumin 2.8. UA is pending. EKG: not done in the ED. X-ray of R foot, consistent with chronic osteomyelitis with suggestion of acute infectious/inflammatory process. Doppler of right lower extremity is negative for DVT. CT abd/pelvis does not show any acute abdominal or pelvic inflammatory/ infectious process. Bilateral perinephric stranding has been noted without hydronephrosis or nephrolithiasis was stopped mild diverticulosis without evidence of diverticulitis noted. Patient received 3 L of normal saline for fluid resuscitation, IV antibiotics Ceftazidime, clindamycin, and Vaughn has been started for pressor support in the ED. Patient initially presented with blood pressure of 166/67, but her blood pressure dropped to 62 over Doppler at 12:25 PM, thus requiring more IV fluid nurses station and central line placement. She was initially thought to be admitted to [facility] but later given her current conditions has been decided to patient and his in the ICU, for the management of following issues: # Septic shock likely secondary to right foot osteomyelitis Patient initially came in with normal blood pressure, received morphine in the ED, which dropped her blood pressure, which was not amenable by IV fluids alone and was thus started on pressors. Pressors were discontinued and patient's blood pressure has been stable on IV fluids alone. Patient's femoral line was removed yesterday. She reported perfuse bleeding. That has resolved now. Patient has had two sets of blood cultures growing MRSA sensitive for daptomycin along with foot cultures growing MRSA. Patient's blood cultures were drawn prior to receiving daptomycin. Patient is currently on day 2 of daptomycin. Patient remains afebrile on steroids and antibiotic therapy with stable vitals. Patient continues to have leukocytosis which may be attributed to her steroid use. Patient had baseline CPK of 156 prior to starting daptomycin. Repeat CPK is 24. Patient initially presented with CXR showing pulmonary edema. Repeat CXR on 07/29 showed no vascular congestion or congestive heart failure. - continue daptomycin 600mg q24 hr - continue IV fluids - continue to monitor vitals - continue to follow up on repeat blood cultures drawn today, 07/31. # Right foot wound, to rule out acute osteomyelitis s/p I&D postop day 1 Patient's clinical feature and left findings are consistent with infective process of right foot wound, and the x-ray of the right foot is clearly suggesting chronic osteomyelitis and possible acute infectious/inflammatory process. Patient had an I&D perrformed on 07/31. Patient has had two sets of blood cultures growing MRSA. The second set was prior to the initiation of daptomycin. - Patient will be NPO tonight for revision tomorrow - Continue IV antibiotics per ID - Follow up repeat blood and OR cultures (07/30) # Acute on chronic kidney disease, multifactorial including interstitial nephritis Patient's creatinine today is 2.5, and her baseline creatinine is 2.17. Her ALBA could be due to sepsis and hypoperfusion, given her state of shock, and although she would benefit from additional IV fluids, it all depends on her perfusion, after starting her on pressors. Patient's creatinine increased to 3.2 but has improved today to 2.7. Patient received stress dose hydrocortisone due to septic shock and as she has been on prednisone 60mg PO for interstitial nephritis. Patient is currently on prednisone 60mg PO daily. - Nephrology on board - IV fluids: NS @ 75 cc/hr - Continue PO prednisone 60mg. Await nephro recommendations for taper. # Diabetes mellitus, uncontrolled Accuchecks: 299, 240, 301. Elevated sugars in the setting of steroids and infection. - Adjusted insulin SS per endocrinology recommendations - Increased to levemir 6 units BID today - Endocrinology on board. Appreciate recommendations - Continue accuchecks TIDAC/qHS # Possible adrenal insufficiency Patient is currently on 60 mg of prednisone daily, and given her low blood pressure and acute infection, and renal insufficiency is likely one of the causes. We are obtaining endocrinology consult for possible lateral insufficiency as well as diabetes mellitus. The patient received IV hydrocortisone 100 mg every 8 hours. - Discontinued IV Solu-Cortef - Started PO Prednisone daily on 07/30. #Anemia: Patient's H/H dropped to 7.5 after she went to the OR yesterday. Repeat H/H today was 7.3/21.6. Patient has no significant cardiac history. Will be conservative with transfusion and transfuse if Hgb is <7. - Repeat H/H stable today - Continue to monitor H/H #Diet: NPO after midnight per podiatry for revision tomorrow (08/01) #DVT ppx: SQ Heparin #Code status: Full code Problem List: 1. Osteomyelitis of right foot 2. Bacteremia Pain Ratin Tomorrow's Labs & Rationales: cbc bep Plan DVT/Prophylaxis: mechanical, pharmacological Robbi Chatman MD 07/31/17 1119: Attending MD Review Statement Attending Sign Off Attending Cosign Statement: I have: examined this patient, reviewed aval EMR data, personally reviewd images, discussd w/resident/PA/FINISHING MACHINE OPERATOR, discussed mgmt plan w/yanely, discussed mgmt plan w/CM, discussed mgmt plan w/pt, agreed w/resident/PA/FINISHING MACHINE OPERATOR, amended to note. Other Findings: Impression 57 year old woman * resolved septic shock secondary to MRSA sepsis for right foot infection/ abscess, s/p surgical intervention * interstitial nephritis hx on chronic steroids * anemia Plan -taper steroids, f/u endocrine and renal recommendations -cont Daptomycin, f/u ID -blood cultures to be repeated -plan for monitoring anemia -f/u podiatry plan -f/u nephrology DVT prophylaxis at all times TTS 35 min DG to GM
[2017-07-31 08:00] VITALS: BP 122/88
--- NOTE | 2017-07-31 10:21 | PN- Infect Dx ---
Subjective Subjective: Afebrile on steroids. She feels well with no complaints. Objective Last 24 Hrs of Vital Signs/I&O Vital Signs Date Time Temp Pulse Resp B/P B/P Pulse O2 O2 Flow FiO2 Mean Ox Delivery Rate 07/31 0400 98 Room Air 07/31 0000 97 Room Air 07/30 2355 97.6 92 18 138/90 97 Room Air 07/30 2000 97 Room Air 07/30 1600 97.8 96 19 108/0 96 Room Air Intake & Output 07/31 1600 07/31 0800 07/31 0000 Intake Total 1050 907 Output Total 750 980 Balance 300 -73 Intake, IV 570 647 Intake, Oral 480 260 Number 0 Bowel Movements Output, Urine 750 980 Physical Exam Other Physical Findings: She is awake and alert, appearing comfortable, in no acute distress Lungs are clear Heart regular rhythm with no murmur Abdomen is soft, nontender with positive bowel sounds Back no CVA tenderness Extremities right foot dressing intact; no cyanosis, clubbing or edema Sanabria catheter is in place Results Last 24 Hours of Lab Results: Laboratory Tests 07/31 Chemistry Sodium (137 - 145 mmol/L) 141 Potassium (3.5 - 5.1 mmol/L) 4.7 Chloride (98 - 107 mmol/L) 116 H Carbon Dioxide (22 - 30 mmol/L) 14 L Anion Gap (5 - 16) 12 BUN (7 - 17 mg/dL) 67 H Creatinine (0.5 - 1.0 mg/dL) 2.7 H Estimated GFR (>60 ml/min) 18 L Glucose (65 - 99 mg/dL) 243 H Calcium (8.4 - 10.2 mg/dL) 8.2 L Phosphorus (2.5 - 4.5 mg/dL) 5.5 H Magnesium (1.6 - 2.3 mg/dL) 1.9 Total Bilirubin (0.2 - 1.3 mg/dL) 0.4 AST (14 - 36 U/L) 25 ALT (9 - 52 U/L) 34 Albumin (3.5 - 5.0 g/dL) 2.1 L Hematology CBC w Diff MAN DIFF ORDERED MAN DIFF ORDERED WBC (4.8 - 10.8 /CUMM) 12.2 H 12.2 H RBC (4.20 - 5.40 /CUMM) 2.69 L 2.78 L Hgb (12.0 - 16.0 G/DL) 7.3 *L 7.5 L Hct (37 - 47 %) 21.6 L 22.3 L MCV (81.0 - 99.0 FL) 80.6 L 80.5 L MCH (27.0 - 31.0 PG) 27.1 27.2 MCHC (33.0 - 37.0 G/DL) 33.6 33.8 RDW (11.5 - 14.5 %) 17.0 H 16.8 H Plt Count (130 - 400 /CUMM) 217 223 MPV (7.4 - 10.4 FL) 7.7 7.5 Gran % (42.2 - 75.2 %) 97.9 H 98.0 H Lymphocytes % (20.5 - 51.1 %) 2.0 L 1.5 L Monocytes % (1.7 - 9.3 %) 0.1 L 0.5 L Eosinophils % (0 - 5 %) 0 0 Basophils % (0.0 - 2.0 %) 0 0 Absolute Granulocytes (1.4 - 6.5 /CUMM) 11.9 H 11.9 H Segmented Neutrophils (42.2 - 75.2 %) 92 H 80 H Band Neutrophils (0.0 - 5.0 %) 7 H 13 H Absolute Lymphocytes (1.2 - 3.4 /CUMM) 0.2 L 0.2 L Lymphocytes (20.5 - 51.1 %) 6 L Monocytes (1.7 - 9.3 %) 1 L 1 L Absolute Monocytes (0.10 - 0.60 /CUMM) 0 L 0.1 Absolute Eosinophils (0.0 - 0.7 /CUMM) 0 0 Absolute Basophils (0.0 - 0.2 /CUMM) 0 0 Platelet Estimate (ADEQUATE) ADEQUATE ADEQUATE Poikilocytosis 1+ Anisocytosis 1+ 1+ Microcytic Cells 1+ Ovalocytes FEW Dejah Cells 1+ 1+ Elliptocytes FEW Other Body Source Fld Total RBCs Counted (%) 100 0318 1009 Hematology CBC w Diff MAN DIFF ORDERED WBC (4.8 - 10.8 /CUMM) 13.9 H RBC (4.20 - 5.40 /CUMM) 2.86 L Hgb (12.0 - 16.0 G/DL) 7.7 L Hct (37 - 47 %) 23.0 L MCV (81.0 - 99.0 FL) 80.4 L MCH (27.0 - 31.0 PG) 27.0 MCHC (33.0 - 37.0 G/DL) 33.5 RDW (11.5 - 14.5 %) 17.1 H Plt Count (130 - 400 /CUMM) 231 MPV (7.4 - 10.4 FL) 7.3 L Gran % (42.2 - 75.2 %) 97.7 H Lymphocytes % (20.5 - 51.1 %) 2.1 L Monocytes % (1.7 - 9.3 %) 0.2 L Eosinophils % (0 - 5 %) 0 Basophils % (0.0 - 2.0 %) 0 Absolute Granulocytes (1.4 - 6.5 /CUMM) 13.6 H Segmented Neutrophils (42.2 - 75.2 %) 88 H Band Neutrophils (0.0 - 5.0 %) 8 H Absolute Lymphocytes (1.2 - 3.4 /CUMM) 0.3 L Lymphocytes (20.5 - 51.1 %) 3 L Monocytes (1.7 - 9.3 %) 1 L Absolute Monocytes (0.10 - 0.60 /CUMM) 0 L Absolute Eosinophils (0.0 - 0.7 /CUMM) 0 Absolute Basophils (0.0 - 0.2 /CUMM) 0 Poikilocytosis 2+ Anisocytosis 1+ Last 24 Hours of Dario Results: Blood cultures 2 July 28 positive for MRSA Right foot culture July 28 from the ER positive for MRSA sensitive to Daptomycin Blood cultures July 29 one bottle positive for Staph aureus Urine culture July 28 negative OR culture July 30 pending, with gram stain revealing rare white blood cells and rare gram-positive cocci Recent Imaging Studies: Right upper quadrant ultrasound July 29 negative Chest x-ray July 29 retrocardiac airspace disease Echocardiogram July 28 no vegetations reported Assessment/Plan ID Impression: Doing well, with temperatures remaining normal (on steroids) with white blood cell count decreased on Daptomycin Day 2 of treatment for MRSA sepsis secondary to an infection in the right foot, status post I&D of a right foot plantar space abscess and bone biopsy yesterday, with plans for a return to the OR in the a.m. A repeat blood culture from 2 days ago (prior to the Daptomycin) was positive and repeat blood cultures will be necessary until they are negative. She will likely require a prolonged course of antibiotics; therefore further evaluation for endocarditis may be academic. She remains on high-dose steroids for interstitial nephritis but, as suggested by Renal, these should be able to be tapered. Suggestion: 1. Repeat blood cultures 2 2. Renal follow-up regarding tapering of her steroids 3. Remove Sanabria catheter 4. Await return to the OR in the a.m. 5. Eventual Pro-Line once her blood cultures are negative 6. Continue Daptomycin
[2017-07-31 11:15] LABS: ABSOLUTE BASOPHIL COUNT 0 /CUMM (0.0-0.2); ABSOLUTE EOSINOPHIL COUNT 0 /CUMM (0.0-0.7); ABSOLUTE LYMPH COUNT 0.3 /CUMM (1.2-3.4); ABSOLUTE MONOCYTE COUNT 0 /CUMM (0.10-0.60); BASOPHIL % 0 % (0.0-2.0); EOSINOPHIL % 0 % (0-5); HEMATOCRIT 22.5 % (37-47); MEAN CORPUSCULAR HGB CONC 33.6 G/DL (33.0-37.0); MEAN CORPUSCULAR VOLUME 80.5 FL (81.0-99.0); MEAN PLATELET VOLUME 7.8 FL (7.4-10.4); PLATELET COUNT 229 /CUMM (130-400); RBC DISTRIBUTION WIDTH 17.2 % (11.5-14.5); WHITE BLOOD CELL COUNT 12.3 /CUMM (4.8-10.8)
[2017-07-31 12:32] LABS: GRANULOCYTE % 97.7 % (42.2-75.2)
--- NOTE | 2017-07-31 12:55 | Transfer of Care Summary ---
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 Patient received 3 L of normal saline for fluid resuscitation, IV antibiotics Ceftazidime, clindamycin, and Vaughn-Synephrine started for pressor support in the ED. Patient initially presented with blood pressure of 166/67, but her blood pressure dropped to 62 over Doppler at 12:25 PM on day of admission, thus requiring more IV fluids pressors and central line placement. She was initially thought to be admitted to general medical [facility] but due to requirement of pressors was admitted to ICU, for the management of following issues: Problems: 1. Septic shock 2/2 presumed right osteomyeltis with MRSA Bacteremia 2. Right foot wound s/p incision and debridement POD #1 3. ALBA on CKD 4. Interstitial nephritis 2/2 Vancomycin on chronic high dose steroids 5. Adrenal Insufficiency 6. Uncontrolled Diabetes 7. Acute on chronic anemia # Septic shock likely secondary to right foot osteomyelitis Patient initially came in with normal blood pressure, received morphine in the ED, which dropped her blood pressure, which was not amenable by IV fluids alone and was thus started on pressors. Pressors were discontinued and patient's blood pressure has been stable on IV fluids alone. Patient's femoral line was removed on 07/30. She reported perfuse bleeding which has now resolved. Patient has had two sets of blood cultures growing MRSA sensitive for daptomycin along with foot cultures growing MRSA. Patient's blood cultures were drawn prior to receiving daptomycin. Patient is currently on day 2 of daptomycin. Patient remains afebrile on steroids and antibiotic therapy with stable vitals. Patient continues to have leukocytosis which may be attributed to her steroid use. Patient had baseline CPK of 156 prior to starting daptomycin. Repeat CPK is 24. Patient initially presented with CXR showing pulmonary edema. Repeat CXR on 07/29 showed no vascular congestion or congestive heart failure and patient's fluids were increased. Patient had a transthoracic echo which was negative for any vegetation. - continue daptomycin 600mg q24 hr, continue periodically following CPK - continue IV fluids - continue to monitor vitals - continue to follow up on repeat blood cultures drawn today, 07/31. - if patient continues to remain bacteremic on IV daptomycin, she may require MARQUES to rule out endocarditis # Right foot wound, to rule out acute osteomyelitis s/p I&D postop day 1 Patient's clinical picture is consistent with an infective process of right foot wound with high suspicion of x-ray of the right foot clearly suggesting chronic osteomyelitis and possible acute infectious/inflammatory process. Patient had an I&D performed on 07/31. Patient has had two sets of blood cultures growing MRSA. The second set was prior to the initiation of daptomycin. - Patient will be NPO for revision on 08/01 - Continue IV antibiotics per ID - Follow up repeat blood cultures (07/31) and OR cultures (07/30) # Acute on chronic kidney disease, multifactorial including interstitial nephritis Patient's creatinine continued to remain elevated above her baseline creatinine is 2.17. Her ALBA was attributed to hypoperfusion in the setting of septic shock. Creatinine improved and is now downtrending. Patient received stress dose hydrocortisone due to septic shock as she has been on prednisone 60mg PO for interstitial nephritis. Patient is currently on prednisone 60mg PO daily. Nephrology has been on board. Spoke to nephrology in terms of tapering patient. There is no longer a concern of intersitial nephritis as patient has been off vancomycin for many months now. Patient can be tapered off prednisone by 10mg every day until she is receiving prednisone 20mg after which she should be tapered more slowly as she tolerates. - Nephrology on board - IV fluids: NS @ 75 cc/hr - Prednisone 60mg today followed by taper of 10mg every day until she is at 20mg daily. Then slower taper as she tolerates. - Continue to follow renal function, strict I/O - Avoid nephrotoxic agents # Diabetes mellitus, uncontrolled Patient's blood sugars were elevated in the setting of acute infection and steroid use. Endocrinology was consulted. Patient's insulin SS was adjusted and levemir was increased to 6 units BID per endocrinology recommendations. - Continue adjusted insulin SS - Continue levemir 6 units BID - Continue to follow up endocrinology recommendations - Continue accuchecks TIDAC/qHS # Possible adrenal insufficiency Patient is currently on 60 mg of prednisone daily, and given her low blood pressure and acute infection, adrenal insufficiency is a possibility. Endocrinology was consulted. The patient initially received IV hydrocortisone 100 mg every 8 hours which was discontinued and prednisone 60mg daily was resumed. - Continue prednisone with taper #Anemia: Patient's H/H dropped to 7.5 after she went to the OR on 07/30. Repeated H/H on was stable at 7.3/21.6. Patient has no significant cardiac history. Will be conservative with transfusion and transfuse if Hgb is <7. - Continue to monitor H/H Diet: NPO after midnight per podiatry for revision tomorrow (08/01) DVT ppx: SQ Heparin Code status: Full code Assessment/Plan: See above
[2017-07-31 16:00] VITALS: BP 128/78
--- NOTE | 2017-07-31 16:00 | PN- Nephrology ---
Assessment/Plan Nephrology Assessment: Cr stable. Would taper steroids. discussed with ICU team. Js Borden MD Suggestion: . Subjective Subjective: Cr stable. On prednisone 60. Objective Vital Signs and I&Os 122/80 98.1 90 Lungs clear Cor RRR Abd soft N/T Ext neg edema Results Pertinent Lab Results: .
[2017-07-31 19:00] VITALS: BP 159/91
[2017-07-31 21:48] VITALS: BP 173/97
[2017-07-31 22:33] VITALS: BP 146/85
--- NOTE | 2017-08-01 07:06 | PN- Housestaff ---
Merlin RASMUSSEN,[facility] 08/01/17 0706: Subjective Follow-up For: Septic shock Right foot osteomyelitis Subjective: Patient was seen and examined this morning. She reports doing okay. Offers no complaints. No active issues overnight. Review of Systems Constitutional: Reports: no symptoms. Objective Last 24 Hrs of Vital Signs/I&O Vital Signs Date Time Temp Pulse Resp B/P B/P Pulse O2 O2 Flow FiO2 Mean Ox Delivery Rate 08/01 1451 97.6 74 20 152/78 96 Room Air Room Air 08/01 0716 97.9 82 20 123/84 98 Room Air 07/31 2233 146/85 07/31 2148 97.3 91 20 173/97 98 Room Air 07/31 1900 97.9 97 18 159/91 98 Room Air 07/31 1600 97.7 87 20 128/78 97 Room Air Intake & Output 08/01 1600 08/01 0800 08/01 0000 Intake Total 375 600 480 Output Total 625 Balance 375 600 -145 Intake, IV 375 600 Intake, Oral 0 0 480 Output, Urine 625 Physical Exam General Appearance: Alert, Oriented X3, Cooperative, No Acute Distress Skin: No Rashes, No Breakdown Skin Temp/Moisture Exam: Warm/Dry Sepsis Skin Exam (color): Normal for Ethnicity HEENT: Atraumatic Cardiovascular: Normal S1, Normal S2, No Murmurs Lungs: Clear to Auscultation, Normal Air Movement Abdomen: Soft, No Tenderness Neurological: Normal Speech Extremities: Normal Pulses, Right leg in karmen wraps Assessment/Plan Assessment: 57-year-old female with past medical history of interstitial nephritis on steroids, peripheral vascular disease, diabetes with nephropathy, hyperlipidemia , 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 She received 3 L of normal saline for fluid resuscitation, IV Ceftazidime, clindamycin. She was started on phenylephrine for pressor support in the ED. Patient was initially admitted to the ICU she required more IV fluid along with pressors. After stabilization of her condition, she was transfered to General Medicine floor. Assessment: 1. Septic shock - resolved 2. Right Foot Osteomyelitis 3. Blood Cultures +ve for MRSA 4. Acute on Chronic Kidney Disease 5. Anemia 6. neuropathic arthritis right foot 7. diabetic peripheral neuropathy Plan: * continue daptomycin 600mg daily. * Will obtain CPK level tomorrow. * follow up on repeat blood cultures drawn on 07/31. If negative for 48 hours, can pursue a Proline for 4 weeks of antibiotics. * Repeat I&D today with bone biopsy right midfoot * Previous OR cultures are growing S.Aureus * Reduce Prednisone to 20mg daily. Will quickly taper them off. * Adjusted insulin SS per endocrinology recommendations * Continue Levemir 6 units BID * Her Hb has been stable around 7. * Goal Hb >7. * Her Cr is 2.4 which is supposedly around her baseline. Will monitor her Cr. * Diet: Diabetic * DVT ppx: SC Heparin x3 * Code status: Full code Problem List: 1. ALBA (acute kidney injury) Pain Ratin Pain Location: none Pain Goal: Remain pain free Pain Plan: none Tomorrow's Labs & Rationales: CBC, BEP, CPK Gama,Kristofer 08/01/17 1217: Attending MD Review Statement Attending Statement Attending MD Statement: examined this patient, discuss w/resident/PA/IMAGER, agreed w/resident/PA/IMAGER, discussed with family, reviewed EMR data (avail), discussed with nursing, discussed with case mgmt, reviewed images, amended to note Attending Assessment/Plan: 57 o/f with AIN/ATN/DM/HTN transfered from ICU s/p admission for sepsis and OM pn daptomcyin planned for OR by podiatry. Patient is hemodynamcilly stable and offering no new compliants. Patient on steroids for AIN and taper steroids as per nephrology. Daptomcyin for MRSA bacteremia and OM. F/u podiarty and ID. Follow labs and hemodynamcis. gi/dvt prophyalxis
[2017-08-01 07:16] VITALS: BP 123/84
[2017-08-01 08:36] LABS: ABSOLUTE BASOPHIL COUNT 0 /CUMM (0.0-0.2); ABSOLUTE EOSINOPHIL COUNT 0 /CUMM (0.0-0.7); ABSOLUTE GRANULOCYTE CT 8.4 /CUMM (1.4-6.5); ABSOLUTE LYMPH COUNT 0.5 /CUMM (1.2-3.4); ABSOLUTE MONOCYTE COUNT 0 /CUMM (0.10-0.60); BASOPHIL % 0 % (0.0-2.0); EOSINOPHIL % 0 % (0-5); HEMATOCRIT 23.2 % (37-47); MEAN CORPUSCULAR HGB 26.6 PG (27.0-31.0); MEAN CORPUSCULAR HGB CONC 32.8 G/DL (33.0-37.0); MEAN CORPUSCULAR VOLUME 81.1 FL (81.0-99.0); MEAN PLATELET VOLUME 7.3 FL (7.4-10.4); PLATELET COUNT 226 /CUMM (130-400); RBC DISTRIBUTION WIDTH 16.6 % (11.5-14.5); RED BLOOD CELL CT 2.87 /CUMM (4.20-5.40); WHITE BLOOD CELL COUNT 8.9 /CUMM (4.8-10.8)
--- NOTE | 2017-08-01 10:02 | PN- Nephrology ---
Assessment/Plan Nephrology Assessment: Doing well. now out of ICU. Please taper steroids. No role at this point for AIN. Above discussed with ICU team in detail yesterday. Would decrease prednisone to 20 mg daily !! Js Borden MD Suggestion: , Subjective Subjective: Pt transferred out of ICU. Steroids not tapered despite discussion with ICU team yesterday. Objective Vital Signs and I&Os F NAD 123/84 97.9 82 Lungs clear Cor RRR Abd soft Ext foot wrapped Results Pertinent Lab Results: 139/ 113 / 63 / 4.8 / 16 / 2.4\
--- NOTE | 2017-08-01 13:09 | Operative Report ---
Operative/Inv Procedure Report Surgery Date: 08/01/17 Name of Procedure: 1 incision and drainage deep to the deep fascia with exposure of the flexor tendon and tendon sheath multiple sites right foot 2 bone biopsy right midfoot 3 intraoperative application of negative pressure wound therapy 4 intraoperative administration of ankle block anesthesia 5 excisional debridement Pre-Operative Diagnosis: 1 open necrotic wound right foot 2 osteomyelitis right foot 3 neuropathic arthritis right foot 4 diabetic peripheral neuropathy Post-Operative Diagnosis: The same Estimated Blood Loss: less than 50ml Surgeon/Mechanical Maintenance: BERNY DIA DPM Anesthesia: moderate sedation, block Operative/Procedure Note Note: After obtaining informed consent the patient was brought to the operating room and placed on the operating table in the supine position. The patient isn't securely fastened to the operating table utilizing safety belt. After administration of IV sedation, 10 mL of 0.5% Marcaine plain was infiltrated about the patient's right ankle. Right foot and ankle then scrubbed prepped and draped in usual aseptic manner. Attention directed plantar aspect the right foot, where a large full-thickness necrotic was identified. A 15 blade visualized sharply revised skin margins. Dissection was then carried down deep to the deep fascia with exposure of the flexor tendon and tendon sheath multiple sites, both proximally and distally. All necrotic nonviable infected tissue sharply evacuated from the wound bed. Bone specimen was harvested for pathologic inspection. Nipple was then irrigated with 3 L normal sterile saline fissure 50,000 units of bacitracin. Following this, the foot was redraped and the surgeon's top was changed clean gloves. Any bleeding vessels identified were cauterized or ligated as encountered. Negative pressure wound therapy was then placed followed by Kumar. The patient noted tolerate both procedure and anesthesia well and the patient was transported from the operating room to recovery with vital signs stable.
--- NOTE | 2017-08-01 13:15 | PN- Diabetes ---
Assessment/Plan Diabetes Assessment: 57-year-old woman was admitted for osteomyelitis involving the right foot. She is going to have another procedure done this afternoon. Now she is kept NPO. She has been on prednisone 60 mg daily for interstitual nephritis. Currently she is on Levemir 6 units twice a day, RISS every 6 hours and D5 1/2 NS at 75 ml / hour. Her FSGs were 334, 339 and 269. Plan: stop RISS wevery 6 hours; start Novolog coverage every 4 hours; detail see the inpatient DM order; monitor FSGs. after she is back from OR, she will be on Levemir 6 units twice a day, previous Novolog coverage before meals and Novolog coverage at bedtime. Inpatient Diabetes Orders Every 4 Hours: Bolus Insulin: Novolog < 80 mg/dl: no coverage 80-100 mg/dl: no coverage 101-120 mg/dl: 3 units 121-150 mg/dl: 3 units 151-200 mg/dl: 5 units 201-250 mg/dl: 7 units 251-300 mg/dl: 9 units 301-350 mg/dl: 11 units 351-400 mg/dl: 13 units > 400 mg/dl: 15 units Subjective Subjective: She is waiting for the procedure. Objective Last 24 Hrs of Vital Signs/I&O Vital Signs Date Time Temp Pulse Resp B/P B/P Pulse O2 O2 Flow FiO2 Mean Ox Delivery Rate 08/01 0716 97.9 82 20 123/84 98 Room Air 07/31 2233 146/85 07/31 2148 97.3 91 20 173/97 98 Room Air 07/31 1900 97.9 97 18 159/91 98 Room Air 07/31 1600 97.7 87 20 128/78 97 Room Air Intake & Output 08/01 1600 08/01 0800 08/01 0000 Intake Total 600 480 Output Total 625 Balance 600 -145 Intake, IV 600 Intake, Oral 0 480 Output, Urine 625 Findings Pertinent Lab/Dario Results: Laboratory Tests 08/01 07/31 0810 1321 Chemistry Sodium (137 - 145 mmol/L) 139 Cancelled Potassium (3.5 - 5.1 mmol/L) 4.8 Cancelled Chloride (98 - 107 mmol/L) 113 H Cancelled Carbon Dioxide (22 - 30 mmol/L) 16 L Cancelled Anion Gap (5 - 16) 10 Cancelled BUN (7 - 17 mg/dL) 63 H Cancelled Creatinine (0.5 - 1.0 mg/dL) 2.4 H Cancelled Estimated GFR (>60 ml/min) 21 L BUN/Creatinine Ratio (7 - 25 %) 26.3 H Cancelled Hematology CBC w Diff MAN DIFF ORDERED WBC (4.8 - 10.8 /CUMM) 8.9 RBC (4.20 - 5.40 /CUMM) 2.87 L Hgb (12.0 - 16.0 G/DL) 7.6 L Hct (37 - 47 %) 23.2 L MCV (81.0 - 99.0 FL) 81.1 MCH (27.0 - 31.0 PG) 26.6 L MCHC (33.0 - 37.0 G/DL) 32.8 L RDW (11.5 - 14.5 %) 16.6 H Plt Count (130 - 400 /CUMM) 226 MPV (7.4 - 10.4 FL) 7.3 L Gran % (42.2 - 75.2 %) 94.0 H Lymphocytes % (20.5 - 51.1 %) 5.8 L Monocytes % (1.7 - 9.3 %) 0.2 L Eosinophils % (0 - 5 %) 0 Basophils % (0.0 - 2.0 %) 0 Absolute Granulocytes (1.4 - 6.5 /CUMM) 8.4 H Segmented Neutrophils (42.2 - 75.2 %) 91 H Absolute Lymphocytes (1.2 - 3.4 /CUMM) 0.5 L Lymphocytes (20.5 - 51.1 %) 7 L Monocytes (1.7 - 9.3 %) 2 Absolute Monocytes (0.10 - 0.60 /CUMM) 0 L Absolute Eosinophils (0.0 - 0.7 /CUMM) 0 Absolute Basophils (0.0 - 0.2 /CUMM) 0 Platelet Estimate (ADEQUATE) VERIFIED BY SMEAR Normocytic RBCs VERIFIED Hypochromic-Microcytic 1+
[2017-08-01 14:51] VITALS: BP 152/78
--- NOTE | 2017-08-01 17:21 | PN- Infect Dx ---
Subjective Subjective: Afebrile on steroids without complaints Objective Last 24 Hrs of Vital Signs/I&O Vital Signs Date Time Temp Pulse Resp B/P B/P Pulse O2 O2 Flow FiO2 Mean Ox Delivery Rate 08/01 1451 97.6 74 20 152/78 96 Room Air Room Air 08/01 0716 97.9 82 20 123/84 98 Room Air 07/31 2233 146/85 07/31 2148 97.3 91 20 173/97 98 Room Air 07/31 1900 97.9 97 18 159/91 98 Room Air Intake & Output 08/01 1600 08/01 0800 08/01 0000 Intake Total 375 600 480 Output Total 625 Balance 375 600 -145 Intake, IV 375 600 Intake, Oral 0 0 480 Output, Urine 625 Physical Exam Other Physical Findings: She appears comfortable in no acute distress Extremities right foot dressing intact, with wound VAC in place Results Last 24 Hours of Lab Results: Laboratory Tests 08/01 0810 Chemistry Sodium (137 - 145 mmol/L) 139 Potassium (3.5 - 5.1 mmol/L) 4.8 Chloride (98 - 107 mmol/L) 113 H Carbon Dioxide (22 - 30 mmol/L) 16 L Anion Gap (5 - 16) 10 BUN (7 - 17 mg/dL) 63 H Creatinine (0.5 - 1.0 mg/dL) 2.4 H Estimated GFR (>60 ml/min) 21 L BUN/Creatinine Ratio (7 - 25 %) 26.3 H Hematology CBC w Diff MAN DIFF ORDERED WBC (4.8 - 10.8 /CUMM) 8.9 RBC (4.20 - 5.40 /CUMM) 2.87 L Hgb (12.0 - 16.0 G/DL) 7.6 L Hct (37 - 47 %) 23.2 L MCV (81.0 - 99.0 FL) 81.1 MCH (27.0 - 31.0 PG) 26.6 L MCHC (33.0 - 37.0 G/DL) 32.8 L RDW (11.5 - 14.5 %) 16.6 H Plt Count (130 - 400 /CUMM) 226 MPV (7.4 - 10.4 FL) 7.3 L Gran % (42.2 - 75.2 %) 94.0 H Lymphocytes % (20.5 - 51.1 %) 5.8 L Monocytes % (1.7 - 9.3 %) 0.2 L Eosinophils % (0 - 5 %) 0 Basophils % (0.0 - 2.0 %) 0 Absolute Granulocytes (1.4 - 6.5 /CUMM) 8.4 H Segmented Neutrophils (42.2 - 75.2 %) 91 H Absolute Lymphocytes (1.2 - 3.4 /CUMM) 0.5 L Lymphocytes (20.5 - 51.1 %) 7 L Monocytes (1.7 - 9.3 %) 2 Absolute Monocytes (0.10 - 0.60 /CUMM) 0 L Absolute Eosinophils (0.0 - 0.7 /CUMM) 0 Absolute Basophils (0.0 - 0.2 /CUMM) 0 Platelet Estimate (ADEQUATE) VERIFIED BY SMEAR Normocytic RBCs VERIFIED Hypochromic-Microcytic 1+ Last 24 Hours of Dario Results: Blood cultures July 29 positive for MRSA Blood cultures July 30 negative so far OR culture July 30 labeled right foot bone positive for Staph aureus Assessment/Plan ID Impression: Stable, status post further debridement of the right foot earlier today, with placement of a wound VAC, for osteomyelitis of the right foot secondary to MRSA, with temperatures remaining normal (on steroids) and with her white blood cell count alsol now normal on Daptomycin Day 3 of treatment for MRSA sepsis secondary to the right foot infection. She will require a prolonged course of antibiotics but Podiatry is concerned that her right foot will remain unstable and that she will likely require a BKA. As she has already failed one course of antibiotics for osteomyelitis of the right foot this may well need to be considered on this admission. She remains on steroids for interstitial nephritis and they are being tapered per Renal. Suggestion: 1. Would pursue placement of a Pro-Line if her most recent blood cultures remain negative 2. Further management of her right foot, with consideration of a BKA, per Podiatry 3. Continue Daptomycin
[2017-08-01 22:58] VITALS: BP 140/80
[2017-08-02 06:40] VITALS: BP 154/82
--- NOTE | 2017-08-02 07:28 | PN- Housestaff ---
Merlin RASMUSSEN,[facility] 08/02/17 0728: Subjective Follow-up For: Osteomyelitis Septic shock Subjective: Patient was seen and examined this morning. Review of Systems Constitutional: Reports: no symptoms. Musculoskeletal: Reports: muscle pain. Objective Last 24 Hrs of Vital Signs/I&O Vital Signs Date Time Temp Pulse Resp B/P B/P Pulse O2 O2 Flow FiO2 Mean Ox Delivery Rate 08/02 0640 97.9 71 20 154/82 96 Room Air 08/01 2258 97.7 74 20 140/80 97 Room Air 08/01 1451 97.6 74 20 152/78 96 Room Air Room Air Intake & Output 08/02 1600 08/02 0800 08/02 0000 Intake Total 480 500 Output Total 600 1000 Balance -120 -500 Intake, Oral 480 500 Number 1 Bowel Movements Output, Urine 600 1000 Physical Exam General Appearance: Alert, Oriented X3, Cooperative, No Acute Distress Skin: No Rashes, No Breakdown Skin Temp/Moisture Exam: Warm/Dry Sepsis Skin Exam (color): Normal for Ethnicity HEENT: Atraumatic Cardiovascular: Normal S1, Normal S2, No Murmurs Lungs: Clear to Auscultation, Normal Air Movement Abdomen: Soft, No Tenderness Neurological: Normal Speech Extremities: right leg in karmen wraps with wound vac Assessment/Plan Assessment: 57-year-old female with past medical history of interstitial nephritis on steroids, peripheral vascular disease, diabetes with nephropathy, hyperlipidemia , posttraumatic arthritis of right foot due to MSSA complicated by reaction to vancomycin/renal injury, recent admission at [facility] from 04/24 till 05/05 for ALBA, came in with complaints of foot wound and abdominal pain. She received 3 L of normal saline for fluid resuscitation, IV Ceftazidime, clindamycin. She was started on phenylephrine for pressor support in the ED. Patient was initially admitted to the ICU she required more IV fluid along with pressors. After stabilization of her condition, she was transfered to General Medicine floor. Assessment: 1. Septic shock - resolved 2. Right Foot Osteomyelitis 3. Blood Cultures +ve for MRSA 4. Acute on Chronic Kidney Disease 5. Anemia 6. neuropathic arthritis right foot 7. diabetic peripheral neuropathy Plan: * continue daptomycin 600mg daily on a 4 week course of treatment (until August 26) * Per ID, patient will require weekly CPK levels. * CPK today was < 20. * follow up on repeat blood cultures drawn on 07/31 have been negative after 48 hours. * Proline tomorrow with IR * Previous OR cultures are growing MRSA * Continue Prednisone 20mg to be tapered 50% every 3 days. * Adjusted insulin SS per endocrinology recommendations * Continue Levemir 6 units BID * Her Hb has been stable around 7. * Goal Hb >7. * Her Cr has improved to 1.9. * Diet: Diabetic. NPO after midnight for Proline tomorrow. * DVT ppx: SC Heparin x3 * Code status: Full code Problem List: 1. Osteomyelitis of right foot Pain Ratin Pain Location: none Pain Goal: Remain pain free Pain Plan: none Tomorrow's Labs & Rationales: CBC, BEP, INR, PTT Kristofer Malloy 08/02/17 1106: Attending MD Review Statement Attending Statement Attending MD Statement: examined this patient, discuss w/resident/PA/CORONER FORENSIC TECHNICIAN, agreed w/resident/PA/CORONER FORENSIC TECHNICIAN, discussed with family, reviewed EMR data (avail), discussed with nursing, discussed with case mgmt, reviewed images, amended to note Attending Assessment/Plan: 57 o/f with AIN/ATN/DM/HTN transferred from ICU s/p admission for sepsis and OM on daptomcyin s/p debridement by podiatry 08/01/17. Patient is hemodynamcilly stable and c/o mild pain at site of surgery. Patient on steroids for AIN and taper steroids as per nephrology. Monitor bp x 24 hrs Daptomcyin for MRSA bacteremia and OM. F/u podiarty and ID. dc planning with termite helper abx as per IR. F/u case management. gi/dvt prophyalxis
[2017-08-02 08:04] LABS: ABSOLUTE BASOPHIL COUNT 0 /CUMM (0.0-0.2); ABSOLUTE EOSINOPHIL COUNT 0 /CUMM (0.0-0.7); ABSOLUTE LYMPH COUNT 0.8 /CUMM (1.2-3.4); ABSOLUTE MONOCYTE COUNT 0 /CUMM (0.10-0.60); BASOPHIL % 0 % (0.0-2.0); EOSINOPHIL % 0.3 % (0-5); MEAN CORPUSCULAR HGB 27.1 PG (27.0-31.0); MEAN CORPUSCULAR HGB CONC 33.9 G/DL (33.0-37.0); MEAN CORPUSCULAR VOLUME 79.9 FL (81.0-99.0); MEAN PLATELET VOLUME 7.3 FL (7.4-10.4); PLATELET COUNT 258 /CUMM (130-400); RBC DISTRIBUTION WIDTH 16.6 % (11.5-14.5); RED BLOOD CELL CT 2.88 /CUMM (4.20-5.40); WHITE BLOOD CELL COUNT 5.9 /CUMM (4.8-10.8)
[2017-08-02 09:14] LABS: GRANULOCYTE % 85.6 % (42.2-75.2)
[2017-08-02 12:32] LABS: PT 11.7 SEC (9.4-12.5); PTT 25 SEC (25-37)
--- NOTE | 2017-08-02 13:03 | PN- Infect Dx ---
Subjective Subjective: Afebrile on steroids. She notes some discomfort in her right foot Objective Last 24 Hrs of Vital Signs/I&O Vital Signs Date Time Temp Pulse Resp B/P B/P Pulse O2 O2 Flow FiO2 Mean Ox Delivery Rate 08/02 0640 97.9 71 20 154/82 96 Room Air 08/01 2258 97.7 74 20 140/80 97 Room Air 08/01 1451 97.6 74 20 152/78 96 Room Air Room Air Intake & Output 08/02 1600 08/02 0800 08/02 0000 Intake Total 480 500 Output Total 600 1000 Balance -120 -500 Intake, Oral 480 500 Number 1 Bowel Movements Output, Urine 600 1000 Patient 225 lb Weight Physical Exam Other Physical Findings: She is awake and alert, appearing depressed, but in no acute distress Extremities right foot dressing intact, with wound VAC in place Results Last 24 Hours of Lab Results: Laboratory Tests 08/02 08/02 1205 0720 Chemistry Sodium (137 - 145 mmol/L) 140 Potassium (3.5 - 5.1 mmol/L) 4.8 Chloride (98 - 107 mmol/L) 113 H Carbon Dioxide (22 - 30 mmol/L) 17 L Anion Gap (5 - 16) 11 BUN (7 - 17 mg/dL) 60 H Creatinine (0.5 - 1.0 mg/dL) 1.9 H Estimated GFR (>60 ml/min) 27 L BUN/Creatinine Ratio (7 - 25 %) 31.6 H Creatine Kinase (30 - 135 U/L) < 20 L Coagulation PT (9.4 - 12.5 SEC) 11.7 INR (0.90 - 1.19) 1.07 APTT (25 - 37 SEC) 25 Hematology CBC w Diff NO MAN DIFF REQ WBC (4.8 - 10.8 /CUMM) 5.9 RBC (4.20 - 5.40 /CUMM) 2.88 L Hgb (12.0 - 16.0 G/DL) 7.8 L Hct (37 - 47 %) 23.0 L MCV (81.0 - 99.0 FL) 79.9 L MCH (27.0 - 31.0 PG) 27.1 MCHC (33.0 - 37.0 G/DL) 33.9 RDW (11.5 - 14.5 %) 16.6 H Plt Count (130 - 400 /CUMM) 258 MPV (7.4 - 10.4 FL) 7.3 L Gran % (42.2 - 75.2 %) 85.6 H Lymphocytes % (20.5 - 51.1 %) 13.7 L Monocytes % (1.7 - 9.3 %) 0.4 L Eosinophils % (0 - 5 %) 0.3 Basophils % (0.0 - 2.0 %) 0 Absolute Granulocytes (1.4 - 6.5 /CUMM) 5.0 Absolute Lymphocytes (1.2 - 3.4 /CUMM) 0.8 L Absolute Monocytes (0.10 - 0.60 /CUMM) 0 L Absolute Eosinophils (0.0 - 0.7 /CUMM) 0 Absolute Basophils (0.0 - 0.2 /CUMM) 0 Last 24 Hours of Dario Results: Blood cultures 2 July 31 remain negative OR culture July 30 labeled right foot bone positive for MRSA Assessment/Plan ID Impression: Stable, status post further debridement of the right foot yesterday, with placement of a wound VAC, for 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 She will require a prolonged course of antibiotics but Podiatry is concerned that her right foot will remain unstable and that she will eventually require a BKA. Suggestion: 1. Would pursue placement of a Pro-Line 2. Further management of her right foot, with consideration of a BKA, per Podiatry 3. Continue Daptomycin to plan on a 4 week course of treatment (until August 26) 4. Weekly CPK while on Daptomycin
--- NOTE | 2017-08-02 13:14 | Patient Discharge Instructions ---
Discharge Instructions General Discharge Information You were seen/treated for: Osteomyelitis Special Instructions: Please follow up with your PCP and Executive Chairman within one week of discharge. Please follow up with an Systems Programmer (blood sugar doctor) after discharge. Please take the Prednisone as directed Diet Continue normal diet: Yes Recommended Diet: Diabetic Activity Full Activity/No Limits: Yes Activity Self Limited: Yes Acute Coronary Syndrome Inclusion Criteria At DC or during hospital stay patient has or had the following: ACS DIAGNOSIS No Discharge Core Measures Meds if any: Prescribed or Continued at Discharge Meds if any: NOT Prescribed or Continued at Discharge Congestive Heart Failure Inclusion Criteria At DC or during hospital stay patient has or had the following: CHF DIAGNOSIS No Discharge Core Measures Meds if any: Prescribed or Continued at Discharge Meds if any: NOT Prescribed or Continued at Discharge Cerebrovascular accident Inclusion Criteria At DC or during hospital stay patient has or had the following: CVA/TIA Diagnosis No Discharge Core Measures Meds if any: Prescribed or Continued at Discharge Meds if any: NOT Prescribed or Continued at Discharge Venous thromboembolism Inclusion Criteria VTE Diagnosis No VTE Type NONE VTE Confirmed by (Test) NONE Discharge Core Measures - Per Current guidelines, there needs to be overlap - treatment for the first 5 days of Warfarin therapy. - If discharged on Warfarin prior to 5 days of - overlap therapy, the patient will need to be - assessed for post discharge needs including - *Post discharge parental anticoagulation - *Warfarin and/or parental anticoagulation education - *Follow up date to check INR post discharge At least 5 days overlap therapy as Inpatient No Meds if any: Prescribed or Continued at Discharge Note: Overlap Therapy is Warfarin and Anticoagulant Meds if any: NOT Prescribed or Continued at Discharge
[2017-08-02 14:26] VITALS: BP 152/84
--- NOTE | 2017-08-02 15:43 | PN- Diabetes ---
Assessment/Plan Diabetes Assessment: 57-year-old woman was admitted for osteomyelitis involving the right foot. She underwent the procedure on 08/01/2017. She was on prednisone 60 mg daily for interstitual nephritis. Prednisone was decreased to 20 mg daily Currently she is on Levemir 6 units twice a day, Novolog coverage every 4 hours. She will be npo again after midnight. Plan: 1. continue Levemir 6 units twice a day; 2. adjust Novolog coverage every 4 hours; detail see the inpatient DM order; 3. monitor FSGs. will follow. Inpatient Diabetes Orders Every 4 Hours: Bolus Insulin: Novolog < 80 mg/dl: no coverage 80-100 mg/dl: no coverage 101-120 mg/dl: no coverage 121-150 mg/dl: no coverage 151-200 mg/dl: 2 units 201-250 mg/dl: 3 units 251-300 mg/dl: 4 units 301-350 mg/dl: 6 units 351-400 mg/dl: 8 units > 400 mg/dl: 10 units Subjective Subjective: She doesn't have special complaints this morning Objective Last 24 Hrs of Vital Signs/I&O Vital Signs Date Time Temp Pulse Resp B/P B/P Pulse O2 O2 Flow FiO2 Mean Ox Delivery Rate 08/02 1426 98.8 80 20 152/84 97 Room Air 08/02 0640 97.9 71 20 154/82 96 Room Air 08/01 2258 97.7 74 20 140/80 97 Room Air Intake & Output 08/02 1600 08/02 0800 08/02 0000 Intake Total 900 480 500 Output Total 600 1000 Balance 900 -120 -500 Intake, IV 50 Intake, Oral 850 480 500 Number 1 1 Bowel Movements Output, Urine 600 1000 Patient 225 lb Weight Findings Pertinent Lab/Dario Results: Laboratory Tests 08/02 08/02 1205 0720 Chemistry Sodium (137 - 145 mmol/L) 140 Potassium (3.5 - 5.1 mmol/L) 4.8 Chloride (98 - 107 mmol/L) 113 H Carbon Dioxide (22 - 30 mmol/L) 17 L Anion Gap (5 - 16) 11 BUN (7 - 17 mg/dL) 60 H Creatinine (0.5 - 1.0 mg/dL) 1.9 H Estimated GFR (>60 ml/min) 27 L BUN/Creatinine Ratio (7 - 25 %) 31.6 H Creatine Kinase (30 - 135 U/L) < 20 L Coagulation PT (9.4 - 12.5 SEC) 11.7 INR (0.90 - 1.19) 1.07 APTT (25 - 37 SEC) 25 Hematology CBC w Diff NO MAN DIFF REQ WBC (4.8 - 10.8 /CUMM) 5.9 RBC (4.20 - 5.40 /CUMM) 2.88 L Hgb (12.0 - 16.0 G/DL) 7.8 L Hct (37 - 47 %) 23.0 L MCV (81.0 - 99.0 FL) 79.9 L MCH (27.0 - 31.0 PG) 27.1 MCHC (33.0 - 37.0 G/DL) 33.9 RDW (11.5 - 14.5 %) 16.6 H Plt Count (130 - 400 /CUMM) 258 MPV (7.4 - 10.4 FL) 7.3 L Gran % (42.2 - 75.2 %) 85.6 H Lymphocytes % (20.5 - 51.1 %) 13.7 L Monocytes % (1.7 - 9.3 %) 0.4 L Eosinophils % (0 - 5 %) 0.3 Basophils % (0.0 - 2.0 %) 0 Absolute Granulocytes (1.4 - 6.5 /CUMM) 5.0 Absolute Lymphocytes (1.2 - 3.4 /CUMM) 0.8 L Absolute Monocytes (0.10 - 0.60 /CUMM) 0 L Absolute Eosinophils (0.0 - 0.7 /CUMM) 0 Absolute Basophils (0.0 - 0.2 /CUMM) 0
[2017-08-02 22:08] VITALS: BP 140/80
--- NOTE | 2017-08-03 07:15 | PN- Housestaff ---
Merlin RASMUSSEN,[facility] 08/03/17 0715: Subjective Follow-up For: Right Foot Osteomyelitis Septic shock - resolved Subjective: Patient was seen and examined at bedside. She is extremely upset about her care here and wants to be transferred to [facility]. Review of Systems Constitutional: Reports: no symptoms. Objective Last 24 Hrs of Vital Signs/I&O Vital Signs Date Time Temp Pulse Resp B/P B/P Pulse O2 O2 Flow FiO2 Mean Ox Delivery Rate 08/03 0719 98.4 77 18 162/88 95 08/02 2208 98.1 80 18 140/80 94 Room Air 08/02 1426 98.8 80 20 152/84 97 Room Air Intake & Output 08/03 1600 08/03 0800 08/03 0000 Intake Total 600 600 Output Total 25 90 Balance 575 510 Intake, IV 600 Intake, Oral 0 600 Output, 25 90 Drainage Physical Exam General Appearance: Alert, Oriented X3, Cooperative, Mild Distress Skin: No Rashes, No Breakdown Skin Temp/Moisture Exam: Warm/Dry Sepsis Skin Exam (color): Normal for Ethnicity HEENT: Atraumatic Cardiovascular: Normal S1, Normal S2, No Murmurs Lungs: Clear to Auscultation, Normal Air Movement Abdomen: Soft, No Tenderness Neurological: Normal Speech Extremities: right foot in karmen wraps and wound vac, b/l lower extremity edema Assessment/Plan Assessment: 57-year-old female with past medical history of interstitial nephritis on steroids, peripheral vascular disease, diabetes with nephropathy, hyperlipidemia , 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 She received 3 L of normal saline for fluid resuscitation, IV Ceftazidime, clindamycin. She was started on phenylephrine for pressor support in the ED. Patient was initially admitted to the ICU she required more IV fluid along with pressors. After stabilization of her condition, she was transfered to General Medicine floor. Assessment: 1. Septic shock - resolved 2. Right Foot Osteomyelitis 3. Blood Cultures +ve for MRSA 4. Acute on Chronic Kidney Disease 5. Anemia 6. neuropathic arthritis right foot 7. diabetic peripheral neuropathy Plan: * Per patient's wishes, she will be transferred. She has been explained the possible risks and benefits with transfer. * She would benefit from being continued on Daptomycin. * Advised for Prednisone to be tapered as instructed in discharge instructions. * Adjusted insulin SS per endocrinology recommendations. She can be continued on it along with Levemir 6 units BID * Her Hb has been stable around 7. * Diet: Diabetic. * DVT ppx: SC Heparin x3 * Code status: Full code Problem List: 1. Osteomyelitis of foot Pain Ratin Pain Location: none Pain Goal: Remain pain free Pain Plan: none Tomorrow's Labs & Rationales: none Kristofer Malloy 08/03/17 1258: Attending MD Review Statement Attending Statement Attending MD Statement: examined this patient, discuss w/resident/PA/RESERVOIR CARETAKER, agreed w/resident/PA/RESERVOIR CARETAKER, discussed with family, reviewed EMR data (avail), discussed with nursing, discussed with case mgmt, reviewed images, amended to note Attending Assessment/Plan: 57 o/f with AIN/ATN/DM/HTN transferred from ICU s/p admission for sepsis and OM on daptomcyin s/p debridement by podiatry 08/01/17. Patient is hemodynamcilly stable and she was upset. Patient on steroids for AIN and taper steroids as per nephrology. Daptomcyin for MRSA bacteremia and OM. F/u podiarty and ID. dc planning with intermission coordinator abx as per ID. Pro-line placement by IR. F/u case management. gi/dvt prophyalxis dc planning with assisted abx as per ID. Pro-line placement by IR. F/u case management. gi/dvt prophyalxis
[2017-08-03 07:19] VITALS: BP 162/88
[2017-08-03 08:21] LABS: ABSOLUTE BASOPHIL COUNT 0 /CUMM (0.0-0.2); ABSOLUTE EOSINOPHIL COUNT 0 /CUMM (0.0-0.7); ABSOLUTE GRANULOCYTE CT 6.2 /CUMM (1.4-6.5); ABSOLUTE MONOCYTE COUNT 0 /CUMM (0.10-0.60); BASOPHIL % 0 % (0.0-2.0); EOSINOPHIL % 0.5 % (0-5); GRANULOCYTE % 85.7 % (42.2-75.2); MEAN CORPUSCULAR HGB 26.8 PG (27.0-31.0); MEAN CORPUSCULAR HGB CONC 33.5 G/DL (33.0-37.0); MEAN CORPUSCULAR VOLUME 80.1 FL (81.0-99.0); MEAN PLATELET VOLUME 7.1 FL (7.4-10.4); PLATELET COUNT 309 /CUMM (130-400); PT 11.7 SEC (9.4-12.5); PTT 23 SEC (25-37); WHITE BLOOD CELL COUNT 7.2 /CUMM (4.8-10.8)
--- NOTE | 2017-08-03 12:00 | Discharge Summary ---
Visit Information Visit Dates Admission Date: 07/28/17 Discharge Date: 08/03/17 Hospital Course Course Attending Physician: Kristofer Malloy MD Primary Care Physician: Oswald Mcleod MD Consulting Request: 1 Consulting Specialty: Critical Care Consulting Physician: Dr. Chatman Reason for Consult: septic shock Consulting Request: 2 Consulting Specialty: Endocrinology Consulting Physician: Alok Vogle MD Reason for Consult: uuncontrolled diabetes Consulting Request: 3 Consulting Specialty: Infectious Disease Consulting Physician: Juan José Doll MD Reason for Consult: sepsis Consulting Request: 4 Consulting Specialty: Nephrology Consulting Physician: Dr. Cervantes Reason for Consult: acute kidney injury on CK D Consulting Request: 5 Consulting Specialty: Podiatry Consulting Physician: Dr. Dia Reason for Consult: right foot abscess Hospital Course: The patient is a 57-year-old woman with a history of diabetes, peripheral vascular disease, hospitalized nearly 5 months prior to admission with Group B strep sepsis secondary to osteomyelitis of a right Charcot foot, requiring drainage/debridement, with OR cultures also positive for MRSA, treated with Vancomycin for 4 weeks, which was complicated by interstitial nephritis, confirmed on a renal biopsy, maintained on high dose steroids over the past 3 months, with residual renal insufficiency (creatinine of 2.1), and with chronic swelling and intermittent erythema of the right foot. She was admitted after presenting to the emergency room with a 1-day history of acute right upper quadrant abdominal pain, associated with nausea but no vomiting, and right foot pain, with tachypnea, lethargy, fever, chills and chills. On arrival to the emergency room she was afebrile. Her initial blood pressure was 166/67 mmhg, but it dropped to 66/40 mmhg. Physical Exam at presentation General: Appearance Alert, Oriented X3, Moderate Distress HEENT: Atraumatic, PERRLA, EOMI, Mucous Membr. moist/pink Neck: No JVD Cardiovascular: Regular Rate, Normal S1, Normal S2, No Murmurs Lungs: Clear to Auscultation, Normal Air Movement Abdomen: Soft, RUQ and EPI tenderness Neurological: Normal Speech, sleepy and lethargic Extremities: right foot swelling erythema, and warm with tenderness Laboratory data revealed a white blood cell count of 15,000, with 72 segs and 16 bands, BUN/creatinine 66 and 2.5, lactic acid 2.3, with normal liver enzymes. X -ray of the right foot revealed chronic osteomyelitis of the navicularcuneiform joints and tarsometatarsal joints, with worsening lateral displacement of the second metatarsal. Doppler of the right leg was negative for DVT. CT of the abdomen and pelvis revealed bilateral perinephric stranding, with a 4 mm calcification along the wall of the gallbladder, with no wall thickening or pericholecystic fluid. Right upper quadrant ultrasound showed no acute lesion. She was given 5 L of fluid in the emergency room and stress dose IV solucortef. A left femoral line was placed and, because of persistent hypotension, and she was begun on Levophed. She was given Clindamycin and Ceftazidime. An aspiration of the plantar aspect of the right foot at bedside was performed that revealed bloody, purulent fluid. Patient had two sets of blood cultures that eventually grew MRSA sensitive for daptomycin along with foot cultures growing MRSA as well. Her antibiotics were changed to IV daptomycin. Patient had a transthoracic echo which was negative for any vegetation. It was felt that the source of her sepsis was her right foot so she was evaluated by traveling construction superintendent and was taken for a formal I&D in the OR by traveling construction superintendent Dr. Dia. Bone cultures from the OR also revealed MRSA. She was placed on the wound VAC after her right foot surgery. However, repeat blood cultures remained positive for MRSA so Proline could not be placed for termite control representative administration of antibiotics. Patient was reviewed by nephrology who felt that since she had completed 3 months of prednisone 60 mg daily therapy for interstitial nephritis, she should be tapered off steroids after completing her stress dose steroids cause. Her prednisone dose was decreased to 20 mg daily with plans for a quick taper. Her CPK levels were transiently elevated to 156 units per liter while on daptomycin but this trended down to normal at less than 20 units per liter. She was evaluated by endocrinology for uncontrolled diabetes and her insulin regimen was adjusted. However, she became upset with the staff nurse anesthetist because she suggested that her foot may eventually need to be amputated in future. On account of this, the patient and her family requested she be transferred to [facility] for further management. She was transferred to [facility] as per her family's request. Allergies: Coded Allergies: vancomycin (Severe, RASH/INTERSTITIAL NEPHRITIS 07/29/17) Significant Procedures: Operative/Inv Procedure Report Surgery Date: 07/30/17 Name of Procedure: 1 open incision and drainage deep to the deep fascia with exposure of the flexor tendon and tendon sheath multiple sites right foot 2 bone biopsy right foot 3 intraoperative administration of ankle block anesthesia 4 excisional debridement Pre-Operative Diagnosis: 1 open necrotic wound with plantar space abscess right foot 2 presumed osteomyelitis right foot 3 neuropathic arthritis right foot 4 diabetic peripheral neuropathy Post-Operative Diagnosis: The same Estimated Blood Loss: less than 50ml Surgeon/Bilingual Speech Therapist: BERNY DIA DPM Operative/Inv Procedure Report Surgery Date: 08/01/17 Name of Procedure: 1 incision and drainage deep to the deep fascia with exposure of the flexor tendon and tendon sheath multiple sites right foot 2 bone biopsy right midfoot 3 intraoperative application of negative pressure wound therapy 4 intraoperative administration of ankle block anesthesia 5 excisional debridement Pre-Operative Diagnosis: 1 open necrotic wound right foot 2 osteomyelitis right foot 3 neuropathic arthritis right foot 4 diabetic peripheral neuropathy Post-Operative Diagnosis: The same Estimated Blood Loss: less than 50ml Surgeon/Bilingual Speech Therapist: BERNY DIA DPM Disposition Summary Disposition Principal Diagnosis: 1. Septic shock 2. Right Foot Osteomyelitis 3. MRSA septicemia 4. Acute on Chronic Kidney Disease 5. Anemia 6. Uncontrolled diabetes mellitus Additional Diagnosis: 7. Neuropathic arthritis right foot 8. Diabetic peripheral neuropathy Discharge Disposition: other general hospital Discharge Instructions General Discharge Information Code Status: Full Code Patient's Diet: Diabetic diet consistent carbohydrate 1 Patient's Activity: Self-limited activity Follow-Up Instructions/Appts: 1. Follow-up with your primary care provider within one week of discharge 2. Follow-up with her traveling construction superintendent within 1 week of discharge 3. Follow-up with staff nurse anesthetist within 1 week of discharge Medications at Discharge Discharge Medications: Stop taking the following medications: Prednisone (Prednisone) 20 MG TABLET ORAL DAILY Qty = 120 Omeprazole Magnesium (Prilosec Otc) 20 MG TABLET.DR ORAL DAILY Continue taking these medications: Atorvastatin Calcium (Atorvastatin Calcium) 40 MG TABLET 1 Tablet ORAL DAILY Qty = 90 Comments: NOT GIVEN IN HOSPITAL Start taking the following new medications: Prednisone (Prednisone) 10 MG TABLET 0 ORAL As Directed Qty = 7 No Refills Comments: LAST GIVEN 08/03/17 @ 0910 Please take 2 tablets of Prednisone 10mg on 08/04/17 then take 1 tablet of Prednisone 10mg on 08/05/17 to 08/07/17 then take 0.5 tablet of Prednisone 10mg from 08/08/17 to 08/10/17 DAPTOmycin (DAPTOmycin) 500 MG VIAL 600 Milligram INTRAVEN DAILY Qty = 30 No Refills Instructions: Continue taking the medicine until August 26, 2017 Comments: LAST GIVEN 08/03/17 @ 1341 Famotidine (Famotidine) 20 MG TABLET 1 Tablet ORAL DAILY Qty = 30 No Refills Comments: LAST GIVEN 08/03/17 @ 0636 Aspirin (Ecotrin*) 81 MG TABLET.DR 1 Tablet ORAL DAILY Qty = 30 No Refills Comments: NOT GIVEN The following medications have been changed: Old: Insulin Glargine,Hum.rec.anlog (Toujeo Solostar) 300 UNIT/ML (1.5 ML) INSULN.PEN 8 Units Inject into fatty tissue Every Morning Qty = 1 New: Insulin Glargine,Hum.rec.anlog (Toujeo Solostar) 300 UNIT/ML (1.5 ML) INSULN.PEN 12 Units Inject into fatty tissue Every Morning Qty = 1 Instructions: . Comments: NOT GIVEN IN HOSPITAL Old: Insulin Aspart, Recombinant (Novolog Flexpen) 100 UNIT/ML INSULN.PEN 0 Inject into fatty tissue SEE INSTRUCTIONS Qty = 10 New: Insulin Aspart, Recombinant (Novolog Flexpen) 100 UNIT/ML INSULN.PEN 0 Inject into fatty tissue SEE INSTRUCTIONS Qty = 10 Instructions: Bolus Insulin: Novolog < 80 mg/dl: no coverage 80-100 mg/dl: 3 units 101-120 mg/dl: 3 units 121-150 mg/dl: 3 units 151-200 mg/dl: 4 units 201-250 mg/dl: 5 units 251-300 mg/dl: 6 units 301-350 mg/dl: 8 units 351-400 mg/dl: 10 units > 400 mg/dl: 12 units Bedtime: Bolus Insulin: Novolog < 80 mg/dl: no coverage 80-100 mg/dl: no coverage 101-120 mg/dl: no coverage 121-150 mg/dl: no coverage 151-200 mg/dl: no coverage 201-250 mg/dl: no coverage 251-300 mg/dl: 2 units 301-350 mg/dl: 3 units 351-400 mg/dl: 4 units > 400 mg/dl: 5 units Comments: LAST GIVEN 08/03/17 @ 0800 Copies To: Billy RASMUSSEN,Alok Guzman; Berny Dia DPM; Sharmila RASMUSSEN,Juan José Godfrey; Harsha RASMUSSEN,Oswald Attending MD Review Statement Documenting Attending: Kristofer Malloy MD
[2017-08-03] MEDS ORDERED: PREDNISONE10 M2 PO (12:39)
--- NOTE | 2017-08-03 12:57 | PN- Diabetes ---
Assessment/Plan Diabetes Assessment: 57-year-old woman was admitted for osteomyelitis involving the right foot. She underwent the procedure on 08/01/2017. She was on prednisone 60 mg daily for interstitual nephritis. Prednisone was decreased to 20 mg daily Currently she is on Levemir 6 units twice a day, Novolog coverage every 4 hours. Her FSGs were 115, 273, 279 and 211. Plan: 1. continue Levemir 6 units twice a day; 2. stop NISS every 4 hours; 3. start Novolog coverage before meals and Novolog coverage at bedtime-- detail see the inpatient DM orders. 4. monitor FSGs. will follow. Inpatient Diabetes Orders Before Each Meal: Bolus Insulin: Novolog < 80 mg/dl: no coverage 80-100 mg/dl: 3 units 101-120 mg/dl: 3 units 121-150 mg/dl: 3 units 151-200 mg/dl: 4 units 201-250 mg/dl: 5 units 251-300 mg/dl: 6 units 301-350 mg/dl: 8 units 351-400 mg/dl: 10 units > 400 mg/dl: 12 units Bedtime: Bolus Insulin: Novolog < 80 mg/dl: no coverage 80-100 mg/dl: no coverage 101-120 mg/dl: no coverage 121-150 mg/dl: no coverage 151-200 mg/dl: no coverage 201-250 mg/dl: no coverage 251-300 mg/dl: 2 units 301-350 mg/dl: 3 units 351-400 mg/dl: 4 units > 400 mg/dl: 5 units Subjective Subjective: She was feeling upset as she hasn't been updated on her treatment plan. Objective Last 24 Hrs of Vital Signs/I&O Vital Signs Date Time Temp Pulse Resp B/P B/P Pulse O2 O2 Flow FiO2 Mean Ox Delivery Rate 08/03 0719 98.4 77 18 162/88 95 08/02 2208 98.1 80 18 140/80 94 Room Air 08/02 1426 98.8 80 20 152/84 97 Room Air Intake & Output 08/03 1600 08/03 0800 08/03 0000 Intake Total 600 600 Output Total 25 90 Balance 575 510 Intake, IV 600 Intake, Oral 0 600 Output, 25 90 Drainage Findings Pertinent Lab/Dario Results: Laboratory Tests 08/03 0610 Chemistry Sodium (137 - 145 mmol/L) 140 Potassium (3.5 - 5.1 mmol/L) 5.1 Chloride (98 - 107 mmol/L) 110 H Carbon Dioxide (22 - 30 mmol/L) 18 L Anion Gap (5 - 16) 12 BUN (7 - 17 mg/dL) 53 H Creatinine (0.5 - 1.0 mg/dL) 2.1 H Estimated GFR (>60 ml/min) 24 L BUN/Creatinine Ratio (7 - 25 %) 25.2 H Coagulation PT (9.4 - 12.5 SEC) 11.7 INR (0.90 - 1.19) 1.07 APTT (25 - 37 SEC) 23 L Hematology CBC w Diff NO MAN DIFF REQ WBC (4.8 - 10.8 /CUMM) 7.2 RBC (4.20 - 5.40 /CUMM) 3.00 L Hgb (12.0 - 16.0 G/DL) 8.1 L Hct (37 - 47 %) 24.0 L MCV (81.0 - 99.0 FL) 80.1 L MCH (27.0 - 31.0 PG) 26.8 L MCHC (33.0 - 37.0 G/DL) 33.5 RDW (11.5 - 14.5 %) 16.0 H Plt Count (130 - 400 /CUMM) 309 MPV (7.4 - 10.4 FL) 7.1 L Gran % (42.2 - 75.2 %) 85.7 H Lymphocytes % (20.5 - 51.1 %) 13.5 L Monocytes % (1.7 - 9.3 %) 0.3 L Eosinophils % (0 - 5 %) 0.5 Basophils % (0.0 - 2.0 %) 0 Absolute Granulocytes (1.4 - 6.5 /CUMM) 6.2 Absolute Lymphocytes (1.2 - 3.4 /CUMM) 1.0 L Absolute Monocytes (0.10 - 0.60 /CUMM) 0 L Absolute Eosinophils (0.0 - 0.7 /CUMM) 0 Absolute Basophils (0.0 - 0.2 /CUMM) 0
[2017-08-03] MEDS ORDERED: DAPTOMYCIN500 MG IV (13:16)
--- NOTE | 2017-08-03 13:23 | PN- Infect Dx ---
Subjective Subjective: Afebrile on steroids. She is upset regarding the need for a possible BKA and is requesting transfer to [place]. She does not report any pain in the right foot. Objective Last 24 Hrs of Vital Signs/I&O Vital Signs Date Time Temp Pulse Resp B/P B/P Pulse O2 O2 Flow FiO2 Mean Ox Delivery Rate 08/03 0719 98.4 77 18 162/88 95 08/02 2208 98.1 80 18 140/80 94 Room Air 08/02 1426 98.8 80 20 152/84 97 Room Air Intake & Output 08/03 1600 08/03 0800 08/03 0000 Intake Total 600 600 Output Total 25 90 Balance 575 510 Intake, IV 600 Intake, Oral 0 600 Output, 25 90 Drainage Physical Exam Other Physical Findings: She appears frustrated and dejected but in no acute distress Extremities right foot dressing intact, with wound VAC in place Results Last 24 Hours of Lab Results: Laboratory Tests 08/03 0610 Chemistry Sodium (137 - 145 mmol/L) 140 Potassium (3.5 - 5.1 mmol/L) 5.1 Chloride (98 - 107 mmol/L) 110 H Carbon Dioxide (22 - 30 mmol/L) 18 L Anion Gap (5 - 16) 12 BUN (7 - 17 mg/dL) 53 H Creatinine (0.5 - 1.0 mg/dL) 2.1 H Estimated GFR (>60 ml/min) 24 L BUN/Creatinine Ratio (7 - 25 %) 25.2 H Coagulation PT (9.4 - 12.5 SEC) 11.7 INR (0.90 - 1.19) 1.07 APTT (25 - 37 SEC) 23 L Hematology CBC w Diff NO MAN DIFF REQ WBC (4.8 - 10.8 /CUMM) 7.2 RBC (4.20 - 5.40 /CUMM) 3.00 L Hgb (12.0 - 16.0 G/DL) 8.1 L Hct (37 - 47 %) 24.0 L MCV (81.0 - 99.0 FL) 80.1 L MCH (27.0 - 31.0 PG) 26.8 L MCHC (33.0 - 37.0 G/DL) 33.5 RDW (11.5 - 14.5 %) 16.0 H Plt Count (130 - 400 /CUMM) 309 MPV (7.4 - 10.4 FL) 7.1 L Gran % (42.2 - 75.2 %) 85.7 H Lymphocytes % (20.5 - 51.1 %) 13.5 L Monocytes % (1.7 - 9.3 %) 0.3 L Eosinophils % (0 - 5 %) 0.5 Basophils % (0.0 - 2.0 %) 0 Absolute Granulocytes (1.4 - 6.5 /CUMM) 6.2 Absolute Lymphocytes (1.2 - 3.4 /CUMM) 1.0 L Absolute Monocytes (0.10 - 0.60 /CUMM) 0 L Absolute Eosinophils (0.0 - 0.7 /CUMM) 0 Absolute Basophils (0.0 - 0.2 /CUMM) 0 Last 24 Hours of Dario Results: Blood cultures July 31 one bottle positive for MRSA Blood cultures 2 August 02 negative Assessment/Plan ID Impression: Recurrent MRSA bacteremia, now 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 Given her recent positive blood cultures placement of the Pro-Line will need to be deferred. She is upset regarding the possible need for a right BKA and she is requesting transfer to [place]. Suggestion: 1. Follow-up recent blood cultures 2. Would obtain a baseline postop ESR 3. Await probable transfer to [place] 4. Continue Daptomycin
[2017-08-03] MEDS ORDERED: FAMOTIDINE20 M1 PO (14:56)
[2017-08-03] MEDS ORDERED: ASPIRIN EC81 M1 PO (14:56)
[2017-08-03] MEDS ORDERED: NOVOLOG FL100 UNIT/1 SC ×2 (14:56→15:01)
[2017-08-03] MEDS ORDERED: TOUJEO SOL300 UNIT/1 SC (14:56)
[2017-08-03 18:27] VITALS: BP 162/88
== END 2017-08-03 20:01 | disposition short-term general hospital (02) | DRG 853 ==
LOC: ERH 08:04 → 2NB 10:36 → ERHI 10:36 → CRI 10:36 → CANRESERV 14:18 → ENRESERV 14:18 → ERHI 15:35 → CRI 16:45 → ENTRNSPT 07-30 09:21 → EDTRNSPTSTS 07-30 09:26 → EDTRNSPT 07-30 09:26 → CMPTRNSPT 07-30 09:55 → ENTRNSPT 07-31 18:11 → EDTRNSPTSTS 07-31 18:43 → EDTRNSPT 07-31 18:43 → 2NB 07-31 19:00 → CMPTRNSPT 07-31 19:11 → DELTRNSPT 07-31 19:14 → 2NB 08-01 08:39 → ENTRNSPT 08-01 14:02 → EDTRNSPT 08-01 14:10 → EDTRNSPTSTS 08-01 14:10 → CMPTRNSPT 08-01 14:15 → 2NB 08-03 20:01
PROVIDERS: Emergency Medicine; Internal Medicine; Physician Assistant Medical; Student in an Organized Health Care Education/Training Program
PROC: 0J9Q0ZZ Drainage of Right Foot Subcutaneous Tissue and Fascia, Open Approach (ICD-10-PCS; principal; 2017-07-30)
PROC: 0JBQ0ZZ Excision of Right Foot Subcutaneous Tissue and Fascia, Open Approach (ICD-10-PCS; principal; 2017-07-30)
PROC: 0QBN0ZX Excision of Right Metatarsal, Open Approach, Diagnostic (ICD-10-PCS; 2017-08-01)
PROC: 0Q9N0ZX Drainage of Right Metatarsal, Open Approach, Diagnostic (ICD-10-PCS; 2017-08-01)
DX: A41.02 Sepsis due to Methicillin resistant Staphylococcus aureus (principal); R65.21 Severe sepsis with septic shock; M86.171 Other acute osteomyelitis, right ankle and foot; L02.611 Cutaneous abscess of right foot; N12 Tubulo-interstitial nephritis, not specified as acute or chronic; E27.40 Unspecified adrenocortical insufficiency; N17.9 Acute kidney failure, unspecified; E11.21 Type 2 diabetes mellitus with diabetic nephropathy; E11.42 Type 2 diabetes mellitus with diabetic polyneuropathy; Z79.4 Long term (current) use of insulin; E11.610 Type 2 diabetes mellitus with diabetic neuropathic arthropathy; E11.65 Type 2 diabetes mellitus with hyperglycemia; T36.8X5A Adverse effect of other systemic antibiotics, initial encounter; E11.22 Type 2 diabetes mellitus with diabetic chronic kidney disease; E78.5 Hyperlipidemia, unspecified; I73.9 Peripheral vascular disease, unspecified; M19.171 Post-traumatic osteoarthritis, right ankle and foot; Z88.1 Allergy status to other antibiotic agents; Z79.52 Long term (current) use of systemic steroids; E66.9 Obesity, unspecified; Z68.33 Body mass index [BMI] 33.0-33.9, adult; D64.9 Anemia, unspecified; N18.9 Chronic kidney disease, unspecified
CPT/HCPCS: 2NBP; 87070; 87075; 87184; CCU; 36415; 36592; 71045; 73630-RT; 74176; 81001; 82436; 87040; 87086; 87147; 88304; 88307; 93005; 93010; 93306; 96360; 96361; 96365; 96375; 96376; 99291; J0131; J0690; J0713; J0878; J1644; J1720; J1815; J2001; J2310; J7040; J7042